=== PATIENT | male | born 1935 | race Caucasian/White ===

== ENCOUNTER 2024-07-04 13:31 | Emergency (ER) | payer MEDICARE, BC, SELFPAY ==
[2024-07-04] VITALS (8 sets, daily range): BP systolic 134–166; BP diastolic 67–107
[2024-07-04 15:15] LABS: % Basophils 0.1 % (0-2); % Eosinophils 0.5 % (0-6); % Immature Granulocytes 0.4 % (0-0.5); % Lymphocytes 7.7 % (20.5-51.1); % Monocytes 10.6 % (1.7-9.3); % Neutrophils 80.7 % (42.2-75.2); Absolute Eosinophils 0.1 10^3/uL (0-0.7); Absolute Lymphocytes 0.9 10^3/uL (1.2-3.4); Absolute Monocytes 1.2 10^3/uL (0.1-0.6); Absolute Neutrophils 8.9 10^3/uL (1.4-6.5); Hematocrit 39.1 % (39.0-52.0); Hemoglobin 13.2 g/dL (13.0-18.0); Mean Corp Hgb Conc. 33.8 g/dL (33.0-37.0); Mean Corpuscular Hgb 32.7 pg (27.0-31.0); Mean Corpuscular Volume 96.8 fL (80.0-94.0); Mean Platelet Volume 9.6 fL (7.4-10.4); Nucleated Red Blood Cells % 0 % (-); Platelet Count 304 10^3/uL (130-400); Red Blood Cell Count 4.04 10^6/uL (4.70-6.10); Red Cell Dist. Width 13.6 % (11.5-14.5); White Blood Cell Count 11.1 10^3/uL (4.8-10.8)
[2024-07-04 15:29] LABS: ALT (SGPT) 16 U/L (0-50); AST (SGOT) 22 U/L (17-59); Albumin 3.5 g/dl (3.5-5.0); Alkaline Phosphatase 90 U/L (38-126); Blood Urea Nitrogen 22 mg/dl (9-20); Calcium 8.7 mg/dl (8.4-10.2); Carbon Dioxide 32 mmol/L (22-30); Chloride 98 mmol/L (98-107); Glucose 154 mg/dl (70-99); Potassium 3.1 mmol/L (3.5-5.1); Sodium 140 mmol/L (135-145); Total Bilirubin 0.8 mg/dl (0.2-1.3); eGFR > 60.00
--- NOTE | 2024-07-04 16:31 | ED.GENMED ---
Addendum entered and electronically signed by Shital Martniez PA-C 07/07/24 07:06:
urine culture boyle sensitive e coli on cefdinir
Original Note:
History of Present Illness
General
Chief Complaint: Dehydration Symptoms
Time Seen by Provider: 07/04/24 14:18
History of Present Illness
History of Present Illness:
89-year-old male with history of stroke and orthostatic hypotension presents with son for evaluation of general fatigue and concerns for dehydration. Patient has had slurred speech and general malaise, son states this typically happens whenever he
is dehydrated. Patient states 'I feel lousy'. There have been no reported fevers, vomiting, diarrhea, or coughing
Review of Systems
Review of Systems
Allergies reviewed?: Yes
All Other Systems: ROS reviewed and negative except as documented in HPI and ROS
Phy Exam
Physical Exam
Physical Exam:
GEN: Frail and cachectic, fatigued but arousable, no distress
Eyes: PERRLA, EOMs intact, no scleral icterus
HENT: NCAT, oral mucosa dry
Lungs: CTAB, no wheezes, rales, rhonchi, normal chest wall excursion
Cardiac: RRR, no M/R/G, no peripheral edema. Radial pulses 2+ bilat
Abdomen: S, NT, ND, NABS, no masses or hepatosplenomegaly
Neuro: AO x 3, mildly slurred speech, moves all extremities freely
MSK: No gross deformity or ecchymosis. No edema. No digital clubbing
Skin: No rashes, petechiae. Normal color, no pallor or jaundice.
Psych: Calm, cooperative, proper hygiene
Course
Orders/Labs/Results
Orders:
Orders
07/04/24 13:39
Electrocardiogram (*1) Urgent
Reason for Study: Vertigo / Dizzy
EKG- Treatment ONCE
07/04/24 14:35
0.9% Sodium Chloride 500 ml [Nss] 500 ml IV BOLUS
07/04/24 15:05
Complete Blood Count/With Diff Urgent
Comprehensive Metabolic Panel Urgent
TSH Urgent
Comment: TSH ADDED ON BY FLOOR 3:30PM 07-04-24
07/04/24 15:32
Add On- LAB Urgent
Tests Added?: TSH
Potassium Chloride [KCl] 40 meq PO NOW STA
07/04/24 16:30
0.9% Sodium Chloride 500 ml [Nss] 500 ml IV BOLUS
07/04/24 17:34
Urinalysis Reflex To Culture Urgent
Date Specimen was Collected: 07/04/24
Time Specimen was Collected: 17:21
Urine Microscopic Reflex Cult Urgent
Urine Culture Urgent
BRIGITTE Source: U
Specimen Description:
Date Specimen was Collected: 07/04/24
Time Specimen was Collected: 17:21
07/04/24 18:07
CefTRIAXone [Rocephin] 1,000 mg IV NOW STA
Abnormal Lab Results
07/04/24 07/04/24
15:05 17:34
WBC 11.1 H 10^3/uL
(4.8-10.8)
RBC 4.04 L 10^6/uL
(4.70-6.10)
MCV 96.8 H fL
(80.0-94.0)
MCH 32.7 H pg
(27.0-31.0)
Absolute Neuts (auto) 8.9 H 10^3/uL
(1.4-6.5)
Absolute Lymphs (auto) 0.9 L 10^3/uL
(1.2-3.4)
Absolute Monos (auto) 1.2 H 10^3/uL
(0.1-0.6)
Neutrophils % 80.7 H %
(42.2-75.2)
Lymphocytes % 7.7 L %
(20.5-51.1)
Monocytes % 10.6 H %
(1.7-9.3)
Potassium 3.1 L mmol/L
(3.5-5.1)
Carbon Dioxide 32 H mmol/L
(22-30)
BUN 22 H mg/dl
(9-20)
Glucose 154 H mg/dl
(70-99)
Total Protein 6.0 L g/dl
(6.3-8.2)
Ur Occult Blood Reflex 2+ A
(Negative)
Urine Nitrite (Reflex) Positive A
(Negative)
Leukocyte Esterase Rfl 2+ A
(Negative)
Urine WBC (Reflex) 11-15 A /HPF
(0-5)
Urine Bacteria (Reflex) Many A
(Negative)
07/04/24 15:05
07/04/24 15:05
Vital Signs
Initial and Last Documented VS:
Initial Vital Signs
Temp Pulse Resp BP Pulse Ox
98.4 F 92 18 139/67 97
07/04/24 13:35 07/04/24 13:35 07/04/24 13:35 07/04/24 13:35 07/04/24 13:35
Last Documented Vital Signs
Temp Pulse Resp BP Pulse Ox
98.0 F 66 16 161/88 100
07/04/24 14:00 07/04/24 18:36 07/04/24 18:36 07/04/24 18:36 07/04/24 18:36
MDM/Problems Addressed
MDM/Problems Addressed:
Patient symptoms are most likely attributable to urinary tract infection. His labs are reasonable, he is mildly dehydrated and given 1 L normal saline as well as oral potassium repletion. No indication for hospitalization. Improving from a
cognition/fatigue standpoint after IV fluids. Will discharge on a 7-day course of cefdinir
*Critical Care Note
Total Time (30-74mins, 75-104mins- exclusive of procedures): Not Applicable
ED Attending Note
-
Portions of this chart may have been created with voice recognition software.� Occasional wrong word or��sound alike� substitutions may have occurred due to the inherent limitations of voice recognition software.
Discharge Plan
Departure
Patient Disposition: Home (Routine Discharge)
Date of Disposition: 07/04/24
Time of Disposition: 18:16
Patient with high blood pressure during this ER visit?: No
Discharge Problem:
Acute UTI, Lethargic
Instructions: Urinary Tract Infection, Adult ED
Prescriptions:
New
cefdinir 300 mg capsule
300 mg PO BID Qty: 14 0RF
No Action
doxycycline monohydrate 100 mg capsule
100 mg PO BID 7 Days Qty: 14 0RF
Referrals:
Damien Vazquez MD [Family Provider] -
Interventions
Interventions:
*Risk Screen - Suicide Last Done: 07/04/24 13:35
*General Assessment Last Done: 07/04/24 13:35
*Neglect/Abuse Screening Last Done: 07/04/24 13:35
ED- Fall Risk Assessment Last Done: 07/04/24 14:47
*Nursing Disposition Last Done: 07/04/24 18:36
ED- Cardiac Assessment Last Done: 07/04/24 14:47
ED- Neurological Assessment Last Done: 07/04/24 14:47
ED- Pulmonary Assessment Last Done: 07/04/24 14:47
Discharge Date and Time
Discharge Date/Time: 07/04/24 18:43
Print Language: S[place]
[2024-07-04 16:33] LABS: TSH 4.02 uIU/ml (0.47-4.68)
[2024-07-04] MEDS: KCL 40 MEQ PO (16:42)
[2024-07-04] MEDS: NSS 500 IV ×2 (16:51)
[2024-07-04 17:42] LABS: Urine Albumin Trace (Neg - Trace); Urine Bilirubin Negative (Negative); Urine Character Clear (Clear); Urine Color Yellow; Urine Glucose Negative (Negative); Urine Ketone Negative (Negative); Urine Leukocyte 2+ (Negative); Urine Nitrite Positive (Negative); Urine Occult Blood 2+ (Negative); Urine Urobilinogen Negative (Neg - 1+)
[2024-07-04 18:01] LABS: Urine Bacteria Many (Negative); Urine Red Blood Cell 0-2 /HPF (0-2)
[2024-07-04] MEDS: ROCEPHIN 1000 MG IV (18:21)
== END 2024-07-04 18:43 | disposition home or self-care (01) ==
LOC: EMR 13:31
PROVIDERS: Physician Assistant; EMERGENCY PHYSICIAN Student in an Organized Health Care Education/Training Program; FAMILY PHYSICIAN Family Medicine
DX: N39.0 Urinary tract infection, site not specified (principal); R53.83 Other fatigue; E86.0 Dehydration
CPT/HCPCS: 99284; 96374; 96361; 80053; 81003; 81015; 84443; 85025; 87086; 87088; 87186; 93005

== ENCOUNTER 2024-07-14 11:48 | Emergency (ER) | payer MEDICARE, BC, SELFPAY ==
[2024-07-14] VITALS (13 sets, daily range): BP systolic 97–151; BP diastolic 55–112; PULSE 74–77
--- NOTE | 2024-07-14 12:02 | ED.GENMED ---
History of Present Illness
<Ruth Ann Avina PA-C - Last Filed: 07/14/24 18:04>
General
Chief Complaint: Dehydration Symptoms
Source: patient
Exam Limitations: none
Time Seen by Provider: 07/14/24 12:02
Nursing documentation reviewed up to this point in time: agreed with
History of Present Illness
History of Present Illness:
89-year-old male with a past medical history of prior stroke, orthostatic hypotension, presents emergency department today with concerns of dehydration. Patient present in room with son. Patient has a long history of orthostatic hypotension and
son reports that he started to show signs that he was getting dehydrated. Son reports that when he gets dehydrated and hypotensive, he will start to slur his words, have some mild blurry vision, and appears fatigued. Son reports that the symptoms
resolve with IV fluids. Patient denies any fevers or chills, shortness of breath, chest pain, abdominal pain, lightheadedness, dizziness, headache. His home nurses went to take his blood pressure and noted that they could not take his blood
pressure because it was too low.
Review of Systems
<Ruth Ann Avina PA-C - Last Filed: 07/14/24 18:04>
Review of Systems
All Other Systems: ROS reviewed and negative except as documented in HPI and ROS
Phy Exam
<Ruth Ann Avina PA-C - Last Filed: 07/14/24 18:04>
Physical Exam
Physical Exam:
General: Patient is well appearing and in no acute distress; non-toxic
Skin: Warm and dry, no rashes or lesions. Dry mucous membranes noted.
Head: Normocephalic, atraumatic
Eyes: Sclera non-icteric. EOMs intact. PERRLA.
Mouth: No intraoral lesions
Cardiac: Regular rate and rhythm
Peripheral Vascular: No lower extremity swelling or edema
Pulm: Normal respiratory effort, no wheezes, rales, or rhonchi
Neuro: CN II-XII intact, no focal neurologic deficits.
Psychiatric: Appropriate mood and affect.
Course
<Ruth Ann Avina PA-C - Last Filed: 07/14/24 18:04>
Orders/Labs/Results
Orders:
Orders
07/14/24 12:08
Orthostatic VS- Treatment ONCE
0.9% Sodium Chloride 1000 ml [Nss] 1,000 ml IV BOLUS
07/14/24 12:33
Complete Blood Count/With Diff Urgent
Comprehensive Metabolic Panel Urgent
07/14/24 13:11
Electrocardiogram (*1) Urgent
Reason for Study: Fatigue / Weakness
EKG- Treatment ONCE
07/14/24 14:39
0.9% Sodium Chloride 1000 ml [Nss] 1,000 ml IV BOLUS
07/14/24 14:40
Diphenhydramine [Benadryl] 6.25 mg IV NOW STA
07/14/24 17:05
Urinalysis Reflex To Culture Urgent
Date Specimen was Collected: 07/14/24
Time Specimen was Collected: 17:03
07/14/24 17:38
Dexamethasone Sod Phosphate [Decadron] 10 mg IV NOW STA
Famotidine [Pepcid] 20 mg IV NOW STA
Abnormal Lab Results
07/14/24
12:33
RBC 3.95 L 10^6/uL
(4.70-6.10)
Hgb 12.9 L g/dL
(13.0-18.0)
Hct 37.9 L %
(39.0-52.0)
MCV 95.9 H fL
(80.0-94.0)
MCH 32.7 H pg
(27.0-31.0)
Absolute Monos (auto) 0.7 H 10^3/uL
(0.1-0.6)
Lymphocytes % 18.6 L %
(20.5-51.1)
BUN 33 H mg/dl
(9-20)
Glucose 127 H mg/dl
(70-99)
Total Protein 6.2 L g/dl
(6.3-8.2)
07/14/24 12:33
07/14/24 12:33
Vital Signs
Initial and Last Documented VS:
Initial Vital Signs
Pulse Resp BP Pulse Ox
84 18 97/55 95
07/14/24 11:55 07/14/24 11:55 07/14/24 11:55 07/14/24 11:55
Last Documented Vital Signs
Pulse Resp BP Pulse Ox
77 18 124/74 99
07/14/24 14:15 07/14/24 14:15 07/14/24 14:00 07/14/24 12:30
<Johnathan Kwan, DO - Last Filed: 07/14/24 13:28>
Orders/Labs/Results
Orders:
Orders
07/14/24 12:08
Orthostatic VS- Treatment ONCE
0.9% Sodium Chloride 1000 ml [Nss] 1,000 ml IV BOLUS
07/14/24 12:33
Complete Blood Count/With Diff Urgent
Comprehensive Metabolic Panel Urgent
07/14/24 13:11
Electrocardiogram (*1) Urgent
Reason for Study: Fatigue / Weakness
EKG- Treatment ONCE
07/14/24 14:39
0.9% Sodium Chloride 1000 ml [Nss] 1,000 ml IV BOLUS
07/14/24 14:40
Diphenhydramine [Benadryl] 6.25 mg IV NOW STA
07/14/24 17:05
Urinalysis Reflex To Culture Urgent
Date Specimen was Collected: 07/14/24
Time Specimen was Collected: 17:03
07/14/24 17:38
Dexamethasone Sod Phosphate [Decadron] 10 mg IV NOW STA
Famotidine [Pepcid] 20 mg IV NOW STA
Abnormal Lab Results
07/14/24
12:33
RBC 3.95 L 10^6/uL
(4.70-6.10)
Hgb 12.9 L g/dL
(13.0-18.0)
Hct 37.9 L %
(39.0-52.0)
MCV 95.9 H fL
(80.0-94.0)
MCH 32.7 H pg
(27.0-31.0)
Absolute Monos (auto) 0.7 H 10^3/uL
(0.1-0.6)
Lymphocytes % 18.6 L %
(20.5-51.1)
BUN 33 H mg/dl
(9-20)
Glucose 127 H mg/dl
(70-99)
Total Protein 6.2 L g/dl
(6.3-8.2)
07/14/24 12:33
07/14/24 12:33
Vital Signs
Initial and Last Documented VS:
Initial Vital Signs
Pulse Resp BP Pulse Ox
84 18 97/55 95
07/14/24 11:55 07/14/24 11:55 07/14/24 11:55 07/14/24 11:55
Last Documented Vital Signs
Pulse Resp BP Pulse Ox
77 18 124/74 99
07/14/24 14:15 07/14/24 14:15 07/14/24 14:00 07/14/24 12:30
Antonylt;Ruth Ann Avina PA-C - Last Filed: 07/14/24 18:04>
MDM/Problems Addressed
Differential Diagnosis Includes:
orthostatic hypotension, hyponatremia, viral syndrome, arrhythmia
MDM/Problems Addressed:
89-year-old male with a past medical history of prior stroke, orthostatic hypotension, presents emergency department today with concerns of dehydration. Son reports that patient has seen multiple specialist for episodes of low blood pressure and
they cannot get to the bottom of what is going on but they think he may have orthostatic hypotension. Son reports that he will be seen in ERs multiple times every few months to get IV fluids. He is recently seen here for IV fluid July 04 but
also was found to have a UTI and was put on antibiotics. Patient has no urinary complaints today and his urinalysis was negative. His CBC and CMP are unremarkable, no electrolyte derangements, does show signs of mild dehydration. While here in
the emergency department, he started to develop a pruritic, urticarial rash. This resolved with Benadryl within returned a few hours later. Patient was given Decadron and famotidine through the IV, etiology of this rash is unclear at this time but
physical exam is consistent with urticaria. Patient on multiple reassessments has no lip or tongue swelling, no shortness of breath. I suggested following up with primary regarding this issue, gave close return precautions. Patient's symptoms
today resolved with IV fluids, he no longer has speech slurring or complaints of weakness and fatigue patient stable for discharge.
Chronic conditions affecting care:
prior stroke, hypothyroidism, orthostatic hypotension
Antonylt;Ruth Ann Avina PA-C - Last Filed: 07/14/24 18:04>
*Pulse Oximetry
Patient hypoxic: no
*EKG
Interpreted by ED Provider?: Yes
EKG Intrepretation Date: 07/14/24
Interpretation: abnormal
Comparison EKG: changes noted (previous EKG shows atrial fibrillation)
Rate: normal
Rhythm: a-fib
Anthony: normal axis
QRS Pattern: normal QRS
Ischemia: no ischemia
*Critical Care Note
Total Time (30-74mins, 75-104mins- exclusive of procedures): Not Applicable
Data Reviewed
Review of Other/Old Records Reveals: Records (reviewed previous ER physician documentation from 07/04/24) and Discharge Summary
Source: patient
Prescriptions/Medications Considered But Not Given:
n/a
Further Testing Considered But Not Given:
n/a
<Ruth Ann Avina PA-C - Last Filed: 07/14/24 18:04>
Patient Management
Escalation/DeEscalation of care consider admission/obs:
Admit not indicated, patient stable for discharge
<Ruth Ann Avina PA-C - Last Filed: 07/14/24 18:04>
Update Note
Update Note:
2:45 pm-- Patient's speech returned to baseline with IV fluids. Patient states that he feels better. Will start another bag of IV fluids. Patient states that he feels itchy and has dry skin and will start scratching. Will give dose of benadryl.
Family reports that patient developed some scattered hives prior to this.
5:41 pm-- Prior to discharge, patient developed diffuse urticaria on his bilateral lower extremities and some scattered urticaria on his abdomen. Son lives with patient at home. Son and patient deny any recent illness, new laundry detergent, new
clothes, new face washes, new soaps, new medications, any recent antibiotics. Patient denies any shortness of breath, tongue or lip swelling.
ED Attending Note
<Ruth Ann Avina PA-C - Last Filed: 07/14/24 18:04>
-
Portions of this chart may have been created with voice recognition software.� Occasional wrong word or��sound alike� substitutions may have occurred due to the inherent limitations of voice recognition software.
<Johnathan Kwan DO - Last Filed: 07/14/24 13:28>
ED Attending Note
Patient seen and examined by attending physician: Yes
I performed the substantive portion of visit, reviewed & personally made and approve the management plan that is documented in note by myself or DEV.: Yes
ED Attending Note:
Seen with PA examined independently 89-year-old male orthostatic hypotension recurrent episodes where he gets weak dizzy with a mental status change here he looks dry, blood pressure improving with saline, son states this happens frequently, as she
saw GI doctor recently to talk about a feeding tube referred to see endocrinology and geriatrics prior to feeding tube
Discharge Plan
Departure
Patient Disposition: Home (Routine Discharge)
Date of Disposition: 07/14/24
Time of Disposition: 17:06
Patient with high blood pressure during this ER visit?: Yes
Condition: Good
Discharge Problem:
Acute dehydration
Instructions: Orthostatic hypotension, Dehydration, Adult (DC), BLOOD PRESSURE
Prescriptions:
No Action
doxycycline monohydrate 100 mg capsule
100 mg PO BID 7 Days Qty: 14 0RF
cefdinir 300 mg capsule
300 mg PO BID Qty: 14 0RF
Referrals:
Damien Vazquez MD [Family Provider] -
Activity Restrictions/Additional Instructions:
Please return to the emergency department should you experience difficulty speaking, one-sided weakness, confusion, syncopal episodes, chest pain, shortness of breath, or any other signs or symptoms concerning to you.
You will receive a call if the results of your urinalysis are abnormal.
Please follow-up with geriatrics and cardiology as scheduled.
Interventions
Interventions:
*Risk Screen - Suicide Last Done: 07/14/24 11:55
*General Assessment Last Done: 07/14/24 11:55
ED- Fall Risk Assessment Last Done: 07/14/24 14:00
*ED COVID-19 Vaccine History Last Done: 07/14/24 11:55
ED- Cardiac Assessment Last Done: 07/14/24 14:00
ED- Neurological Assessment Last Done: 07/14/24 14:00
ED- Pulmonary Assessment Last Done: 07/14/24 14:00
Discharge Date and Time
Print Language: MONGOLIAN
[2024-07-14] MEDS: NSS 1000 IV ×2 (12:42→15:31)
[2024-07-14 12:51] LABS: % Basophils 0.3 % (0-2); % Eosinophils 2.6 % (0-6); % Immature Granulocytes 0.3 % (0-0.5); % Lymphocytes 18.6 % (20.5-51.1); % Monocytes 8.9 % (1.7-9.3); % Neutrophils 69.3 % (42.2-75.2); Absolute Eosinophils 0.2 10^3/uL (0-0.7); Absolute Lymphocytes 1.4 10^3/uL (1.2-3.4); Absolute Monocytes 0.7 10^3/uL (0.1-0.6); Absolute Neutrophils 5.4 10^3/uL (1.4-6.5); Hematocrit 37.9 % (39.0-52.0); Hemoglobin 12.9 g/dL (13.0-18.0); Mean Corpuscular Hgb 32.7 pg (27.0-31.0); Mean Corpuscular Volume 95.9 fL (80.0-94.0); Mean Platelet Volume 9.9 fL (7.4-10.4); Nucleated Red Blood Cells % 0 % (-); Platelet Count 328 10^3/uL (130-400); Red Blood Cell Count 3.95 10^6/uL (4.70-6.10); Red Cell Dist. Width 13.4 % (11.5-14.5); White Blood Cell Count 7.8 10^3/uL (4.8-10.8)
[2024-07-14 13:07] LABS: ALT (SGPT) 20 U/L (0-50); AST (SGOT) 33 U/L (17-59); Alkaline Phosphatase 82 U/L (38-126); Blood Urea Nitrogen 33 mg/dl (9-20); Calcium 9.2 mg/dl (8.4-10.2); Carbon Dioxide 29 mmol/L (22-30); Chloride 100 mmol/L (98-107); Glucose 127 mg/dl (70-99); Potassium 4.2 mmol/L (3.5-5.1); Sodium 140 mmol/L (135-145); Total Bilirubin 0.7 mg/dl (0.2-1.3); eGFR > 60.00
[2024-07-14 13:18] LABS: Albumin 3.7 g/dl (3.5-5.0); Total Protein 6.2 g/dl (6.3-8.2)
[2024-07-14] MEDS: BENADRYL 6.25 MG IV (15:48)
[2024-07-14 17:12] LABS: Urine Albumin Trace (Neg - Trace); Urine Bilirubin Negative (Negative); Urine Character Clear (Clear); Urine Color Amber; Urine Glucose Negative (Negative); Urine Ketone Negative (Negative); Urine Leukocyte Negative (Negative); Urine Nitrite Negative (Negative); Urine Occult Blood Negative (Negative); Urine Specific Gravity 1.025 (<1.030); Urine Urobilinogen Negative (Neg - 1+)
[2024-07-14] MEDS: PEPCID 20 MG IV (17:42)
[2024-07-14] MEDS: DECADRON 10 MG IV (17:42)
== END 2024-07-14 18:16 | disposition home or self-care (01) ==
LOC: EMR 11:48
PROVIDERS: Physician Assistant; EMERGENCY PHYSICIAN Emergency Medicine; FAMILY PHYSICIAN Family Medicine
DX: E86.0 Dehydration (principal); R47.81 Slurred speech; L50.9 Urticaria, unspecified; L85.3 Xerosis cutis; L29.9 Pruritus, unspecified; N39.0 Urinary tract infection, site not specified; R03.0 Elevated blood-pressure reading, without diagnosis of hypertension; I48.91 Unspecified atrial fibrillation; E03.9 Hypothyroidism, unspecified; Z86.73 Personal history of transient ischemic attack (TIA), and cerebral infarction without residual deficits; Z79.82 Long term (current) use of aspirin; Z79.02 Long term (current) use of antithrombotics/antiplatelets; Z88.1 Allergy status to other antibiotic agents
CPT/HCPCS: 99284; 96374; 96375 ×2; 96361 ×2; 80053; 81003; 85025; 93005

== ENCOUNTER 2024-07-16 17:47 | Inpatient (IN) | payer MEDICARE, BC, SELFPAY ==
[2024-07-16] VITALS (8 sets, daily range): BP systolic 95–150; BP diastolic 66–104; BMI 15.2; BMI 14.9
--- NOTE | 2024-07-16 10:42 | ED.GENMED ---
ED Provider Triage
<Danie Domingo PA-C - Last Filed: 07/16/24 10:56>
-
Patient seen by provider in Triage?: Seen in Triage
89-year-old male on aspirin and Plavix fell last evening. Family states he was confused last night trying to put his pants on after she was run. Since the fall he is been having right hip and leg pain. They also notes sometime yesterday midday he
had difficulty speaking. The speaking issue persists. Patient was here several days ago for dehydration.
Ordered labs and EKG as well as CT of head and x-ray of right hip. Stroke alert not called secondary to unknown onset of symptoms.
EKG shows A-fib with rapid ventricular response
History of Present Illness
<Danie Domingo PA-C - Last Filed: 07/16/24 10:56>
General
Chief Complaint: Fall
Time Seen by Provider: 07/16/24 11:51
<FABRICE Domingo - Last Filed: 07/17/24 20:54>
General
Source: family
Exam Limitations: none
Nursing documentation reviewed up to this point in time: agreed with
History of Present Illness
History of Present Illness:
Patient is an 89-year-old male with history of CVA presents to the ER for evaluation of hip pain. Patient here with family. Son reports that patient lives by himself but son is there a majority of the time. Son reports patient described a
mechanical fall last night while trying to put on his pants. Since then he is complaining of right hip pain. Son reports his speech seems a little garbled and he is more confused than normal was also seeing things/hallucinating last night and
this often occurs when he is dehydrated. In fact he reports they were just here 2 days ago for dehydration. AT that time UA did not appear infected.
Patient presents awake alert he is pleasantly confused but answering questions.
He has no focal deficits. CAT scan head done and negative. Patient has good range of motion of his right hip though he does complain of pain will order CT. With regards to change in mental status likely combination of dehydration and UTI will
admit. Patient will also need workup for A-fib again he is on Plavix only for history of stroke.
Patient is afebrile with a normal white as documented patient's BUN was elevated he was given fluids here in the ER
Review of Systems
<FABRICE Domingo - Last Filed: 07/17/24 20:54>
Review of Systems
Allergies reviewed?: Yes
Other source history: family
All Other Systems: ROS reviewed and negative except as documented in HPI and ROS
Constitutional: Reports no symptoms
Respiratory: Reports no symptoms
Cardiac: Reports no symptoms
ABD/GI: Reports no symptoms
: Reports no symptoms
Musculoskeletal: Reports other (right hip pain )
Skin: Reports no symptoms
Neurological: Reports other (increased confusion )
Psychiatric: Reports no symptoms
Phy Exam
<FABRICE Domingo - Last Filed: 07/17/24 20:54>
General Physical Exam
General Presentation: no apparent distress
General age: appears stated age
General Skin: warm and dry
General Habitus: elderly
General Mental: confused
General Hydration: dry mucous membranes
Cardiovascular Exam
Cardiovascular Exam: irregularly irregular
Pulmonary Exam
Pulmonary Exam: lungs clear and no respiratory distress
Neurological Exam
Neurological Exam: alert and other (oriented to name/hosital )
Musculoskeletal Exam
Musculoskeletal Exam: other (pain with ROM to right hip no deformity )
Skin Exam
Skin Exam: normal color and warm/dry
Psychiatric Exam
Psychiatric Exam: normal mood/affect
Scores
<FABRICE Domingo - Last Filed: 07/17/24 20:54>
[id number] Score for Afib Stroke Risk
Age in Years (65=0, 65-74=1, >/=75=2): > or = 75
Sex (Female=+1): Male
Congestive Heart Failure History (Yes=+1): No
Hypertension History (Yes=+1): No
Stroke/TIA/Thromboembolism History (Yes=+2): Yes
Vascular Disease History (Yes=+1): No
Diabetes Mellitus (Yes=+1): No
Score: 4
Anticoagulation Recommendations: Recommend anticoagulation (as validated in nonvalvular fib)
Course
<Danie Domingo PA-C - Last Filed: 07/16/24 10:56>
Orders/Labs/Results
Orders:
Orders
07/16/24 10:40
CT Head W/o Iv Contrast Urgent
Comment:
Reason For Exam: fall, difficulty speaking
EKG- Treatment ONCE
CR Femur - Right Min 2 Vw Urgent
Comment:
Reason For Exam: fall
CR Hip - RT w/wo Pel 2-3 Vw* Urgent
Comment:
Reason For Exam: fall,
Include a pelvis x-ray?: Yes
07/16/24 10:49
Electrocardiogram (*1) Urgent
Reason for Study: Fatigue / Weakness
EKG- Treatment ONCE
07/16/24 12:27
Complete Blood Count/With Diff Urgent
Comprehensive Metabolic Panel Urgent
Urinalysis Reflex To Culture Urgent
Date Specimen was Collected: 07/16/24
Time Specimen was Collected: 10:46
Urine Microscopic Reflex Cult Urgent
Urine Culture Urgent
BRIGITTE Source: U
Specimen Description:
Date Specimen was Collected: 07/16/24
Time Specimen was Collected: 10:46
07/16/24 13:07
0.9% Sodium Chloride 1000 ml [Nss] 1,000 ml IV BOLUS
10/14/24 14:05
CefTRIAXone [Rocephin] 1,000 mg IV NOW STA
07/16/24 14:17
Electrocardiogram (*1) Urgent
Reason for Study: Bradycardia / Tachycardia
EKG- Treatment ONCE
07/16/24 14:37
CT Lower Ext W/o Iv Cont Rt Urgent
Comment:
Reason For Exam: pain
07/16/24 14:45
Heparin 2,900 units IV NOW STA
Heparin 44961 Units/250 ml 25,000 units in 250 ml IV PER PROTOCOL
Weight to be used for heparin protocol in kilograms (kg):: 48.1
Protocol:: Cardiac Tx/Acute Coronary
PTT Goal Range to be used:: PTT 73 to 111 seconds
Order type:: Initial
INITIAL Infusion Dose (UNITS/KG/hr) & then follow protocol:: 12 units/kg/hr
Infusion Dose in UNITS/hr & then follow protocol (UNITS/hr):: 600
INFUSION RATE in mL/hr & then follow protocol (mL/hr):: 6
PTT less than or equal to 64 seconds:: Increase rate by 200 units/hr (+ 2 mL/hr)
PTT 64.1 to 72.9 seconds:: Increase rate by 100 units/hr (+ 1 mL/hr)
PTT 73 to 111 seconds:: Target Range. No change in rate.
PTT 111.1 to 130.9 seconds:: Decrease rate by 100 units/hr (- 1 mL/hr)
PTT 131 to 199.9 seconds:: HOLD for 1 hr. Then decrease rate by 200 units/hr (- 2 mL/hr)
PTT greater than or equal to 200 seconds:: HOLD for 2 hrs & Notify Provider. Then decrease by 200 units/hr (-
2 mL/hr)
Lab follow-up:: Each change, PTT q6h until 2 consecutive are therapeutic. Then PTT
daily.
Nursing to Place Non Medication Order As Directed
Physician Order: PTT 6 hours after initial start of Heparin infusion
Above order entered?: Yes
07/16/24 14:51
PTT Urgent
Comment: Obtain baseline before beginning heparin infusion if not already collected
07/16/24 15:08
Morphine Sulfate 2 mg .ROUTE .STK-MED ONE
07/16/24 15:09
Morphine Sulfate 2 mg IV NOW STA
07/16/24 16:48
Admit/Transfer Patient As Directed
Co-Sign Provider:
Level of Care: Inpatient admission
Assign to:: Telemetry
Physician / Group: Amish Wang
Diagnosis: Hip pain, AFib
Reason for Telemetry: Arrhythmia
Date to Stop Telemetry: 07/19/24
Time to Stop Telemetry: 11:00
Reason for Hospitalization: Fall at home, rule out fracture. New onset AF with RVR
Expected length of stay greater than two midnights?: Yes
ELOS- Estimated Length of Stay in days: 3
I certify the patient meets the requirements for IP care: Yes
PRN Pain Medication Management As Directed
May give lesser potent ordered pain med per pt: Yes
preference::
Protocol:: Medication orders for pain may be administered in a
manner that supports deferring to patient preference
when the pt is:
- Requesting an ordered lesser potent pain medication.
Least to most potent pain medications are defined
as: acetaminophen < NSAID < tramadol < opioids
(morphine, oxycodone, hydromorphone).
- Requesting a lesser dose of the same medication IF
ORDERED.
- Requesting a less intrusive route of administration
if both routes are prescribed by the provider (PO <
IV).
07/16/24 16:50
Code Status As Directed
Resuscitation Status: Full Code
07/16/24 16:53
Add On- LAB Stat
Comments:: ED urine sample
Tests Added?: Urine Culture
07/16/24 17:14
CARDIOLOGY CONSULT Routine
Consulting Provider: Abundio Rolon
Was physician already notified: Yes
Reason for consult: AF, [id number]
07/16/24 17:15
Diltiazem 125 mg/125 ml Nss [Cardizem] 125 mg in 125 ml IV PER PROTOCOL
Continuous dose without titration in mg/hr:: 2.5
Additional Titration Instructions:: Do not titrate. Rate change by provider order only.
07/16/24 17:18
Accucheck [Bedside Glucose Monitoring] As Directed
Frequency: AC&HS
07/16/24 17:20
Morphine Sulfate 1 mg IV Q4HPRN PRN
Morphine Sulfate 2 mg IV Q6HPRN PRN
07/16/24 17:45
Acetaminophen 1000MG/100Ml [Ofirmev] 1,000 mg in 100 ml IV ONCE
07/16/24 18:00
Lactated Ringers [Lr] 1,000 ml IV 60 mls/hr
07/16/24 19:09
Atorvastatin [Lipitor] 40 mg PO QPM
Bisacodyl [Dulcolax] 10 mg RECTAL [id number] PRN
Docusate W/Senna [Senokot-S] 1 tablet PO BIDPRN PRN
Fludrocortisone Acetate [Florinef] 0.1 mg PO MEALS
Polyethylene Glycol Powder [Miralax] 17 grams PO DAILYPRN PRN
07/16/24 19:09
Activity As Directed
Activity Level: Out of Bed-Early Mobility
Intake/ Output As Directed
Frequency: q12h
Pneumatic Compression Sleeves As Directed
Type: Knee high
Vital Signs As Directed
Frequency: Per unit guidelines
Weight As Directed
Frequency: Daily
DX Deep Vein Thrombosis Video Routine
07/16/24 19:15
Midodrine [ProAmatine] 10 mg PO MEALS
07/16/24 20:00
Magnesium Oxide 250 mg PO BID
Sodium Chloride 1 gram PO BID
07/16/24 21:43
PTT Urgent
07/16/24 22:00
Famotidine [Pepcid] 20 mg PO HS
07/17/24 00:00
Acetaminophen 1000MG/100Ml [Ofirmev] 1,000 mg in 100 ml IV Q6H
Acetaminophen IV Indication:: No MN & No Enteral Access
07/17/24 04:58
Basic Metabolic Panel IN AM
Complete Blood Count/With Diff IN AM
Magnesium IN AM
07/17/24 07:30
Insulin Aspart Corrective Low [Novolog Flexpen-Low Resistance] See Protocol SC AC
07/17/24 08:00
Allopurinol [Zyloprim] 100 mg PO DAILY
Aspirin Chewable [Low Strength Aspirin] 81 mg PO DAILY
Clopidogrel Bisulfate [Plavix] 75 mg PO DAILY
07/17/24 14:00
CefTRIAXone [Rocephin] 1,000 mg IV Q24H
07/19/24 11:00
DC Protocol for Telemetry ONCE
Abnormal Lab Results
07/16/24
12:27
RBC 3.89 L 10^6/uL
(4.70-6.10)
Hgb 12.8 L g/dL
(13.0-18.0)
Hct 37.4 L %
(39.0-52.0)
MCV 96.1 H fL
(80.0-94.0)
MCH 32.9 H pg
(27.0-31.0)
Abs Immat Gran (auto) 0.1 H 10^3/uL
(0-0.05)
Absolute Neuts (auto) 8.4 H 10^3/uL
(1.4-6.5)
Absolute Lymphs (auto) 1.0 L 10^3/uL
(1.2-3.4)
Absolute Monos (auto) 0.9 H 10^3/uL
(0.1-0.6)
Neutrophils % 80.9 H %
(42.2-75.2)
Lymphocytes % 9.8 L %
(20.5-51.1)
BUN 28 H mg/dl
(9-20)
Glucose 142 H mg/dl
(70-99)
Ur Occult Blood Reflex Trace A
(Negative)
Leukocyte Esterase Rfl 2+ A
(Negative)
Urine WBC (Reflex) 30-40 A /HPF
(0-5)
Urine Bacteria (Reflex) Many A
(Negative)
07/16/24 12:27
07/16/24 12:27
Vital Signs
Initial and Last Documented VS:
Initial Vital Signs
Temp Pulse Resp BP Pulse Ox
97.6 F 89 18 95/76 96
07/16/24 10:42 07/16/24 10:42 07/16/24 10:42 07/16/24 10:42 07/16/24 10:42
Last Documented Vital Signs
Temp Pulse Resp BP Pulse Ox
97.3 F 72 14 114/64 92
07/17/24 19:30 07/17/24 19:30 07/17/24 19:30 07/17/24 19:30 07/17/24 19:30
<FABRICE Domingo - Last Filed: 07/17/24 20:54>
Orders/Labs/Results
Orders:
Orders
07/16/24 10:40
CT Head W/o Iv Contrast Urgent
Comment:
Reason For Exam: fall, difficulty speaking
EKG- Treatment ONCE
CR Femur - Right Min 2 Vw Urgent
Comment:
Reason For Exam: fall
CR Hip - RT w/wo Pel 2-3 Vw* Urgent
Comment:
Reason For Exam: fall,
Include a pelvis x-ray?: Yes
07/16/24 10:49
Electrocardiogram (*1) Urgent
Reason for Study: Fatigue / Weakness
EKG- Treatment ONCE
07/16/24 12:27
Complete Blood Count/With Diff Urgent
Comprehensive Metabolic Panel Urgent
Urinalysis Reflex To Culture Urgent
Date Specimen was Collected: 07/16/24
Time Specimen was Collected: 10:46
Urine Microscopic Reflex Cult Urgent
Urine Culture Urgent
BRIGITTE Source: U
Specimen Description:
Date Specimen was Collected: 07/16/24
Time Specimen was Collected: 10:46
07/16/24 13:07
0.9% Sodium Chloride 1000 ml [Nss] 1,000 ml IV BOLUS
07/16/24 14:05
CefTRIAXone [Rocephin] 1,000 mg IV NOW STA
07/16/24 14:17
Electrocardiogram (*1) Urgent
Reason for Study: Bradycardia / Tachycardia
EKG- Treatment ONCE
07/16/24 14:37
CT Lower Ext W/o Iv Cont Rt Urgent
Comment:
Reason For Exam: pain
07/16/24 14:45
Heparin 2,900 units IV NOW STA
Heparin 59034 Units/250 ml 25,000 units in 250 ml IV PER PROTOCOL
Weight to be used for heparin protocol in kilograms (kg):: 48.1
Protocol:: Cardiac Tx/Acute Coronary
PTT Goal Range to be used:: PTT 73 to 111 seconds
Order type:: Initial
INITIAL Infusion Dose (UNITS/KG/hr) & then follow protocol:: 12 units/kg/hr
Infusion Dose in UNITS/hr & then follow protocol (UNITS/hr):: 600
INFUSION RATE in mL/hr & then follow protocol (mL/hr):: 6
PTT less than or equal to 64 seconds:: Increase rate by 200 units/hr (+ 2 mL/hr)
PTT 64.1 to 72.9 seconds:: Increase rate by 100 units/hr (+ 1 mL/hr)
PTT 73 to 111 seconds:: Target Range. No change in rate.
PTT 111.1 to 130.9 seconds:: Decrease rate by 100 units/hr (- 1 mL/hr)
PTT 131 to 199.9 seconds:: HOLD for 1 hr. Then decrease rate by 200 units/hr (- 2 mL/hr)
PTT greater than or equal to 200 seconds:: HOLD for 2 hrs & Notify Provider. Then decrease by 200 units/hr (-
2 mL/hr)
Lab follow-up:: Each change, PTT q6h until 2 consecutive are therapeutic. Then PTT
daily.
Nursing to Place Non Medication Order As Directed
Physician Order: PTT 6 hours after initial start of Heparin infusion
Above order entered?: Yes
07/16/24 14:51
PTT Urgent
Comment: Obtain baseline before beginning heparin infusion if not already collected
07/16/24 15:08
Morphine Sulfate 2 mg .ROUTE .STK-MED ONE
07/16/24 15:09
Morphine Sulfate 2 mg IV NOW STA
07/16/24 16:48
Admit/Transfer Patient As Directed
Co-Sign Provider:
Level of Care: Inpatient admission
Assign to:: Telemetry
Physician / Group: Amish Wang
Diagnosis: Hip pain, AFib
Reason for Telemetry: Arrhythmia
Date to Stop Telemetry: 07/19/24
Time to Stop Telemetry: 11:00
Reason for Hospitalization: Fall at home, rule out fracture. New onset AF with RVR
Expected length of stay greater than two midnights?: Yes
ELOS- Estimated Length of Stay in days: 3
I certify the patient meets the requirements for IP care: Yes
PRN Pain Medication Management As Directed
May give lesser potent ordered pain med per pt: Yes
preference::
Protocol:: Medication orders for pain may be administered in a
manner that supports deferring to patient preference
when the pt is:
- Requesting an ordered lesser potent pain medication.
Least to most potent pain medications are defined
as: acetaminophen < NSAID < tramadol < opioids
(morphine, oxycodone, hydromorphone).
- Requesting a lesser dose of the same medication IF
ORDERED.
- Requesting a less intrusive route of administration
if both routes are prescribed by the provider (PO <
IV).
07/16/24 16:50
Code Status As Directed
Resuscitation Status: Full Code
07/16/24 16:53
Add On- LAB Stat
Comments:: ED urine sample
Tests Added?: Urine Culture
07/16/24 17:14
CARDIOLOGY CONSULT Routine
Consulting Provider: Abundio Rolon
Was physician already notified: Yes
Reason for consult: AF, [id number] 4
07/16/24 17:15
Diltiazem 125 mg/125 ml Nss [Cardizem] 125 mg in 125 ml IV PER PROTOCOL
Continuous dose without titration in mg/hr:: 2.5
Additional Titration Instructions:: Do not titrate. Rate change by provider order only.
07/16/24 17:18
Accucheck [Bedside Glucose Monitoring] As Directed
Frequency: AC&HS
07/16/24 17:20
Morphine Sulfate 1 mg IV Q4HPRN PRN
Morphine Sulfate 2 mg IV Q6HPRN PRN
07/16/24 17:45
Acetaminophen 1000MG/100Ml [Ofirmev] 1,000 mg in 100 ml IV ONCE
07/16/24 18:00
Lactated Ringers [Lr] 1,000 ml IV 60 mls/hr
07/16/24 19:09
Atorvastatin [Lipitor] 40 mg PO QPM
Bisacodyl [Dulcolax] 10 mg RECTAL [id number] PRN
Docusate W/Senna [Senokot-S] 1 tablet PO BIDPRN PRN
Fludrocortisone Acetate [Florinef] 0.1 mg PO MEALS
Polyethylene Glycol Powder [Miralax] 17 grams PO DAILYPRN PRN
07/16/24 19:09
Activity As Directed
Activity Level: Out of Bed-Early Mobility
Intake/ Output As Directed
Frequency: q12h
Pneumatic Compression Sleeves As Directed
Type: Knee high
Vital Signs As Directed
Frequency: Per unit guidelines
Weight As Directed
Frequency: Daily
DX Deep Vein Thrombosis Video Routine
07/16/24 19:15
Midodrine [ProAmatine] 10 mg PO MEALS
07/16/24 20:00
Magnesium Oxide 250 mg PO BID
Sodium Chloride 1 gram PO BID
07/16/24 21:43
PTT Urgent
07/16/24 22:00
Famotidine [Pepcid] 20 mg PO HS
07/17/24 00:00
Acetaminophen 1000MG/100Ml [Ofirmev] 1,000 mg in 100 ml IV Q6H
Acetaminophen IV Indication:: No MN & No Enteral Access
07/17/24 04:58
Basic Metabolic Panel IN AM
Complete Blood Count/With Diff IN AM
Magnesium IN AM
07/17/24 07:30
Insulin Aspart Corrective Low [Novolog Flexpen-Low Resistance] See Protocol SC AC
07/17/24 08:00
Allopurinol [Zyloprim] 100 mg PO DAILY
Aspirin Chewable [Low Strength Aspirin] 81 mg PO DAILY
Clopidogrel Bisulfate [Plavix] 75 mg PO DAILY
07/17/24 14:00
CefTRIAXone [Rocephin] 1,000 mg IV Q24H
07/19/24 11:00
DC Protocol for Telemetry ONCE
Abnormal Lab Results
07/16/24
12:27
RBC 3.89 L 10^6/uL
(4.70-6.10)
Hgb 12.8 L g/dL
(13.0-18.0)
Hct 37.4 L %
(39.0-52.0)
MCV 96.1 H fL
(80.0-94.0)
MCH 32.9 H pg
(27.0-31.0)
Abs Immat Gran (auto) 0.1 H 10^3/uL
(0-0.05)
Absolute Neuts (auto) 8.4 H 10^3/uL
(1.4-6.5)
Absolute Lymphs (auto) 1.0 L 10^3/uL
(1.2-3.4)
Absolute Monos (auto) 0.9 H 10^3/uL
(0.1-0.6)
Neutrophils % 80.9 H %
(42.2-75.2)
Lymphocytes % 9.8 L %
(20.5-51.1)
BUN 28 H mg/dl
(9-20)
Glucose 142 H mg/dl
(70-99)
Ur Occult Blood Reflex Trace A
(Negative)
Leukocyte Esterase Rfl 2+ A
(Negative)
Urine WBC (Reflex) 30-40 A /HPF
(0-5)
Urine Bacteria (Reflex) Many A
(Negative)
07/16/24 12:27
07/16/24 12:27
Vital Signs
Initial and Last Documented VS:
Initial Vital Signs
Temp Pulse Resp BP Pulse Ox
97.6 F 89 18 95/76 96
07/16/24 10:42 07/16/24 10:42 07/16/24 10:42 07/16/24 10:42 07/16/24 10:42
Last Documented Vital Signs
Temp Pulse Resp BP Pulse Ox
97.3 F 72 14 114/64 92
07/17/24 19:30 07/17/24 19:30 07/17/24 19:30 07/17/24 19:30 07/17/24 19:30
<FABRICE Domingo - Last Filed: 07/17/24 20:54>
MDM/Problems Addressed
Differential Diagnosis Includes:
Not limited to hip fracture hip strain dehydration infection UTI less likely stroke
MDM/Problems Addressed:
Patient is an 89-year-old male is brought by family. Patient had a mechanical fall yesterday and was complaining of hip pain since however son reports patient is also with garbled speech and gets this way when he gets dehydrated. Prior notes/ED
visit patient was also brought here several times for garbled speech related to possible confusion or UTI concerns. Patient presents awake alert he has no focal deficits he is able to answer questions to tell me his name and follow commands. He is
dry on exam and is dehydrated. He has a UTI(though just here 2 days ago and it did not appear that he had a UTI on labs and urine).
Patient presents afebrile with a normal white count stable hemoglobin, BUN is 28 creatinine normal, urine shows 30�40 white blood cells. Will treat with IV Rocephin incidentally patient was found to be in A-fib.
Patient as documented in visits has no past medical history of A-fib. He is on Plavix for history of CVA however has been off of Plavix for the past several days to a procedure that was supposed to occur today at [facility] for his facial nerve. d/c /w
ED physician will order heparin. ct hip pending hospitalist made aware
<FABRICE Domingo - Last Filed: 07/17/24 20:54>
*Radiology
Radiology exam reviewed: radiology read reviewed
*Pulse Oximetry
Patient hypoxic: no
*EKG
Interpreted by ED Provider?: Yes
Interpretation: abnormal
Comparison EKG: changes noted
Heart Rate: 95
Rate: normal
Rhythm: a-fib
*Critical Care Note
Total Time (30-74mins, 75-104mins- exclusive of procedures): Not Applicable
ED Attending Note
<Danie Domingo PA-C - Last Filed: 07/16/24 10:56>
-
Portions of this chart may have been created with voice recognition software.� Occasional wrong word or��sound alike� substitutions may have occurred due to the inherent limitations of voice recognition software.
Discharge Plan
Departure
Patient Disposition: Admit
Date of Disposition: 07/16/24
Time of Disposition: 14:58
Admit to: Telemetry
Admit to doctor: hospitalist
Presentation/result/management discussed w/ accepting MD/DO: Hospitalist
Patient with high blood pressure during this ER visit?: Yes
Condition: Fair
Covid-19: Not Applicable
Discharge Problem:
Acute UTI, Acute dehydration, Atrial fibrillation, new onset, Acute alteration in mental status
Interventions
Interventions:
*Risk Screen - Suicide Last Done: 07/17/24 01:30
*General Assessment Last Done: 07/16/24 10:42
*Neglect/Abuse Screening Last Done: 07/16/24 10:42
*ED COVID-19 Vaccine History Last Done: 07/17/24 01:30
*Nursing Disposition Last Done: 07/16/24 19:10
ED-Musculoskeletal Assessment Last Done: 07/16/24 13:22
ED- Neurological Assessment Last Done: 07/16/24 13:22
ED-Skin Assessment Last Done: 07/16/24 13:22
Discharge Date and Time
Discharge Date/Time: 07/16/24 19:11
[2024-07-16 12:40] LABS: % Basophils 0.1 % (0-2); % Eosinophils 0.2 % (0-6); % Immature Granulocytes 0.5 % (0-0.5); % Lymphocytes 9.8 % (20.5-51.1); % Monocytes 8.5 % (1.7-9.3); % Neutrophils 80.9 % (42.2-75.2); Absolute Immature Granulocytes 0.1 10^3/uL (0-0.05); Absolute Monocytes 0.9 10^3/uL (0.1-0.6); Absolute Neutrophils 8.4 10^3/uL (1.4-6.5); Hematocrit 37.4 % (39.0-52.0); Hemoglobin 12.8 g/dL (13.0-18.0); Mean Corp Hgb Conc. 34.2 g/dL (33.0-37.0); Mean Corpuscular Hgb 32.9 pg (27.0-31.0); Mean Corpuscular Volume 96.1 fL (80.0-94.0); Mean Platelet Volume 9.9 fL (7.4-10.4); Nucleated Red Blood Cells % 0 % (-); Platelet Count 262 10^3/uL (130-400); Red Blood Cell Count 3.89 10^6/uL (4.70-6.10); Red Cell Dist. Width 13.7 % (11.5-14.5); White Blood Cell Count 10.3 10^3/uL (4.8-10.8)
[2024-07-16 12:41] LABS: Urine Albumin Trace (Neg - Trace); Urine Bilirubin Negative (Negative); Urine Character Clear (Clear); Urine Color Yellow; Urine Glucose Negative (Negative); Urine Ketone Negative (Negative); Urine Leukocyte 2+ (Negative); Urine Nitrite Negative (Negative); Urine Occult Blood Trace (Negative); Urine Specific Gravity 1.015 (<1.030); Urine Urobilinogen Negative (Neg - 1+)
[2024-07-16 12:53] LABS: ALT (SGPT) 24 U/L (0-50); AST (SGOT) 28 U/L (17-59); Albumin 3.7 g/dl (3.5-5.0); Alkaline Phosphatase 120 U/L (38-126); Blood Urea Nitrogen 28 mg/dl (9-20); Calcium 9.2 mg/dl (8.4-10.2); Carbon Dioxide 26 mmol/L (22-30); Chloride 106 mmol/L (98-107); Estimated Creatinine Clearance 43 ml/min; Glucose 142 mg/dl (70-99); Potassium 3.5 mmol/L (3.5-5.1); Sodium 143 mmol/L (135-145); Total Bilirubin 0.7 mg/dl (0.2-1.3); Total Protein 6.3 g/dl (6.3-8.2); eGFR > 60.00
[2024-07-16] MEDS: NSS 1000 IV (13:19)
[2024-07-16 13:58] LABS: Urine Mucus Many
[2024-07-16 14:00] LABS: Urine Amorphous Seen; Urine Red Blood Cell 0-2 /HPF (0-2); Urine Squamous Cell 0-2 /LPF (Few)
[2024-07-16 14:01] LABS: Urine White Cell 30-40 /HPF (0-5)
[2024-07-16 14:02] LABS: Urine Bacteria Many (Negative)
[2024-07-16] MEDS: ROCEPHIN 1000 MG IV (14:09)
[2024-07-16] MEDS: MORPHINE SULFATE 2 MG IV (15:10)
[2024-07-16] MEDS: HEPARIN 25000 UNITS/250 ML IV (15:15)
[2024-07-16] MEDS: HEPARIN 2900 UNITS IV (15:15)
[2024-07-16 16:25] LABS: APTT 33.5 Sec (23.4-35.0)
--- NOTE | 2024-07-16 16:35 | HPS.HSE ---
Family Physician
-
Family Physician: Damien Vazquez
Chief Complaint
-
Fall at home, new onset AF with RVR while in ED
History of Present Illness
89-year-old male with ASCVD (left subclavian artery occlusion, right vertebral artery occlusion; C/B left subclavian steal syndrome), T2DM, HLD, stage IIIa CKD, hypothyroidism, gout, trigeminal neuralgia, former smoker that presented to the ED after
a fall on the evening of 07/15/2024. Family states the patient was confused and trying to put on his pants when he fell. Denies any known head strike or loss of consciousness. Has been having right hip pain and leg pain since that time. Also
with mild difficulties in speaking. Was recently hospitalized here for dehydration. Currently on DAPT for his ASCVD history.
AFVSS on arrival to the ED though did have tachycardia initially with heart rate up to 120/min. EKG showing atrial fibrillation with RVR. Labs with hemoglobin 12.8. Urinalysis with 2+ leukocyte esterase, 30-40 WBC per hpf, many bacteria. CT head
without contrast showed no acute intracranial abnormalities, showed diffuse cortical atrophy with nonspecific white matter changes. Right femur x-ray without signs of acute fracture, as was x-ray of the right hip. Was given ceftriaxone, morphine
sulfate, and 1 L IV fluids in the ED
The patient was altered while in the ED. Majority of history obtained from his son at the bedside. States his father was changing close when he fell, denies any syncopal episode. Per his son, he is on multimodal regimen for orthostatic
hypotension however blood pressure more recently has been improved and he is at the use midodrine less frequently.
Medical History
Past Medical History
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
Additional Past Medical History:
ASCVD (left subclavian artery occlusion, right vertebral artery occlusion; C/B left subclavian steal syndrome)
T2DM
HLD
Stage IIIa CKD
gout
trigeminal neuralgia
Past Surgical History: Reports None
Social History
Tobacco: Former Smoker
Alcohol: None
Drug: None
Family History
Family History: Not pertinent
Allergies / Home Medications
Allergies reflects when Allergies were last updated in [facility].
Home Medications with original date entered in [facility]
Allergy/Medication List:
Allergies
Allergy/AdvReac Type Severity Reaction Status Date / Time
amoxicillin AdvReac Nausea / Verified 07/16/24 10:44
Vomiting
Home Medications
allopurinol 100 mg tablet 100 mg PO DAILY Gout 07/16/24
aspirin 81 mg chewable tablet 81 mg PO DAILY Blood Clot Prevention/Tx 07/16/24
atorvastatin 40 mg tablet 40 mg PO QPM high cholesterol 07/16/24
azelastine 137 mcg (0.1 %) nasal spray 1 spray intranasal BID LEFT nostril only 07/16/24
clopidogrel 75 mg tablet 75 mg PO DAILY Blood Clot Prevention/Tx 07/16/24
famotidine 40 mg tablet 40 mg PO HS Gastrointestinal Issue 07/16/24
fludrocortisone 0.1 mg tablet 0.1 mg PO MEALS Blood Pressure 07/16/24
fluticasone propionate 50 mcg/actuation nasal spray,suspension 1 spray intranasal BID LEFT nostril only 07/16/24
ipratropium bromide 42 mcg (0.06 %) nasal spray 1 spray intranasal BID LEFT nostril only 07/16/24
magnesium 250 mg tablet 250 mg PO BID Supplement 07/16/24
midodrine 10 mg tablet 10 mg PO MEALS Blood Pressure 07/16/24
sodium chloride 1,000 mg soluble tablet 1,000 mg PO BID Electrolyte Repletion 07/16/24
Review of Systems
-
Unable to obtain full review of systems at this time due to: Acuity (Metabolic encephalopathy)
Physical Exam
Vital Signs
Vital Signs
Temp Pulse Resp BP Pulse Ox
97.6 F 99 18 139/102 96
07/16/24 10:42 07/16/24 13:45 07/16/24 13:45 07/16/24 13:18 07/16/24 10:42
Physical Exam
General: No Apparent Distress, Cachectic and Other (Frail, elderly)
HEENT: NormoCephalic, Anicteric and Other (Dry mucous membranes)
Respiratory: Clear and Non Labored Respirations; No Accessory Resp Muscle Use
Cardiac: S1/S2, Irregular Rhythm and Tachycardia; No Murmur, Rub, Gallop, Peripheral Edema or JVD
GI: Soft, Non Tender, Non Distended and Normal Bowel Sounds
Musculoskeletal: No Clubbing and No Cyanosis
Skin: Warm and Dry; No Rash
Neuro: Other (Encephalopathic, nonfocal exam, cranial nerves grossly intact)
Psych: Confused
Laboratory Results
-
07/16/24 12:27
07/16/24 12:27
Laboratory Results
APTT 33.5 Sec (23.4-35.0) 07/16/24 14:51
Total Bilirubin 0.7 mg/dl (0.2-1.3) 07/16/24 12:27
AST 28 U/L (17-59) 07/16/24 12:27
ALT 24 U/L (0-50) 07/16/24 12:27
Alkaline Phosphatase 120 U/L (38-126) 07/16/24 12:27
Data Reviewed
-
Diagnostic Radiology: Report Reviewed by me and Discussed with Family
Medical Tests (Nuc Med, Echo, EKG etc): Image Personally Visualized and interpreted, Report Reviewed by me and Discussed with Family
Lab Data: Labs Reviewed by me and Discussed with Family
Impression/Plan
-
#Acute metabolic encephalopathy
-Suspect this is multifactorial with delirium, opiate effect, component of UTI
-Per his son he is AOx3 at baseline, has been lucid at times today though volatile
-Suspect this will improve with correction of the issues as below
-Will monitor neurologic status clinically
#New onset AF with RVR
-Nonvalvular; [id number] 4; likely provoked from stress of fall, possible prerenal state
-Upon arrival had heart rate as high as 120/min, has since improved and within normal limits
-Was not started on any medications while in the emergency department
-Will start on heparin drip empirically for AC, plan for DOAC if not too high risk for him
-Start diltiazem drip at 2.5 mg/h for now
-Order TTE, cardiology consult
-Monitor on telemetry
#UTI
-Urinalysis from the ED with pyuria, many bacteria, positive leukocyte esterase
-Afebrile in the ED, no leukocytosis on initial labs
-Was started on IV ceftriaxone empirically
-Will follow-up urine culture and continue with IV ceftriaxone for now
-Trend CBC and temperature curve
#Mechanical fall at home
#Right hip pain
-Had a fall at home onto his right hip, imaging without signs of fracture
-Was started on morphine sulfate in the ED, adequate response
-Will order CT without contrast to further assess hip/femur
-Consider orthopedics consult pending CT results
-Analgesia: Tylenol/morphine 1 mg IV/morphine 2 mg IV
-PT/OT consult
#ASCVD
#Left subclavian steal
#Bilateral carotid stenosis
#Dyslipidemia
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
-Home medications include DAPT with aspirin and Plavix, high intensity statin
-No signs or symptoms of new atherosclerotic occlusions
#T2DM
-No recent A1c on record, not currently on home medications, no history of microvascular disease
-Will start ISS with Accu-Cheks, blood glucose goal 150�200
#Stage IIIa CKD
-Baseline renal function with creatinine near 1.0, creatinine clearance mid 40s
-No chronic acidemia, anemia, bone mineral disease associated with CKD
-Renal function currently at baseline
#Orthostatic hypotension
-Seems to have severe disease
-Home medications include midodrine, fludrocortisone, NaCl tabs twice daily
-Will monitor for orthostatic symptoms while here, getting IV fluids now
#Hypothyroidism
-Unclear etiology, does not seem to be on any levothyroxine replacement at home
-Per previous documentation
#Gout
-Home meds include allopurinol 100 mg daily
-No signs of acute flare at this time
DVT prophylaxis: Heparin drip
Diet: Regular
CODE STATUS: Full code
[2024-07-16] MEDS: OFIRMEV 100 IV (17:46)
[2024-07-16] MEDS: CARDIZEM 125 IV (17:53)
--- NOTE | 2024-07-16 19:30 | PTCARENOTE ---
Pt arrived from ED via stretcher and pulled over to bed with son at bedside. Pt is AAOx3, forgetful, restless and complaining of pain in the R hip unable to rate. RN given morphine 1mg. Pt has cardizem gtt 2.5mg/hr and heparin gtt 6ml/hr from ED.
VSS. Pt is resting comfortably w/ call domínguez within reach.
[2024-07-16] MEDS: LR 1000 IV (20:07)
[2024-07-16] MEDS: SODIUM CHLORIDE 1 GRAM PO (20:18)
[2024-07-16] MEDS: MAGNESIUM OXIDE 250 MG PO (20:19)
[2024-07-16] MEDS: LIPITOR 40 MG PO (20:20)
[2024-07-16] MEDS: ProAmatine 10 MG PO (20:20)
[2024-07-16] MEDS: FLORINEF 0.1 MG PO (20:21)
[2024-07-16] MEDS: MORPHINE SULFATE 1 MG IV (20:36)
[2024-07-16 22:06] LABS: APTT 33.4 Sec (23.4-35.0)
[2024-07-16] MEDS: PEPCID 20 MG PO (22:35)
--- NOTE | 2024-07-17 00:04 | PTCARENOTE ---
Pt bp 98/66 and heart rate maintaining in the 70's in afib. RN notified AUTO MECHANICS TEACHER- ordered to stop cardizem gtt. Pt is resting comfortably w/ call domínguez within reach.
[2024-07-17] MEDS: OFIRMEV 100 IV ×4 (00:59→20:12)
[2024-07-17 01:54] VITALS: BMI 14.9
[2024-07-17 03:23] VITALS: BP 119/86
[2024-07-17 03:53] LABS: Glucose - Point of Care 112 mg/dl (70-99)
[2024-07-17 05:28] LABS: APTT 68.3 Sec (23.4-35.0)
[2024-07-17 06:00] VITALS: BMI 15.0
[2024-07-17 06:18] LABS: % Basophils 0.1 % (0-2); % Eosinophils 1.4 % (0-6); % Immature Granulocytes 0.2 % (0-0.5); % Lymphocytes 12.9 % (20.5-51.1); % Neutrophils 78.4 % (42.2-75.2); Absolute Eosinophils 0.1 10^3/uL (0-0.7); Absolute Lymphocytes 1.1 10^3/uL (1.2-3.4); Absolute Monocytes 0.6 10^3/uL (0.1-0.6); Absolute Neutrophils 6.6 10^3/uL (1.4-6.5); Hematocrit 34.2 % (39.0-52.0); Hemoglobin 11.8 g/dL (13.0-18.0); Mean Corp Hgb Conc. 34.5 g/dL (33.0-37.0); Mean Corpuscular Hgb 33.2 pg (27.0-31.0); Mean Corpuscular Volume 96.3 fL (80.0-94.0); Mean Platelet Volume 9.9 fL (7.4-10.4); Nucleated Red Blood Cells % 0 % (-); Platelet Count 245 10^3/uL (130-400); Red Blood Cell Count 3.55 10^6/uL (4.70-6.10); Red Cell Dist. Width 13.5 % (11.5-14.5); White Blood Cell Count 8.4 10^3/uL (4.8-10.8)
[2024-07-17 06:43] LABS: Blood Urea Nitrogen 20 mg/dl (9-20); Calcium 8.3 mg/dl (8.4-10.2); Carbon Dioxide 25 mmol/L (22-30); Chloride 106 mmol/L (98-107); Estimated Creatinine Clearance 49 ml/min; Glucose 120 mg/dl (70-99); Magnesium 1.5 mg/dl (1.6-2.3); Potassium 3.2 mmol/L (3.5-5.1); Sodium 141 mmol/L (135-145); eGFR > 60.00
[2024-07-17 06:55] VITALS: BP 136/99
--- NOTE | 2024-07-17 08:06 | CON.CAR ---
Addendum entered and electronically signed by Abundio Rolon MD 07/17/24 13:44:
I saw and examined the patient.
The MANIFEST/ORDER ORGANIZER PRINT ORDERS's note was reviewed and I agree with the note.
Comment: 89-year-old male with orthostatic hypotension, prediabetes, chronic kidney disease, dyslipidemia, gout, prior TIA/CVA and PAD who presented to the emergency department with a chief complaint of a mechanical fall. Upon interview he is
confused thinking he is at a restaurant he appears only oriented to name.
-Diltiazem 30 mg every 6 hrs and Eliquis 2.5 mg twice daily
Original Note:
Consultation
Consultation Request
Date/Time Consultation Requested: 07/16/2024 17:15
Date/Time Consultation Performed: 07/17/2024 08:30
Requesting Provider: Dr. Wang
Performing Provider: FABRICE Richter for Dr. Rolon
Reason for Consultation: Atrial fibrillation
Medical History
-
Chief Complaint: Fall
History of Present Illness:
Cheo Ortiz is an 89-year-old male with orthostatic hypotension, prediabetes, chronic kidney disease, dyslipidemia, gout, prior TIA/CVA and PAD who presented to the emergency department with a chief complaint of a mechanical fall. He presented to
the emergency department 2 days prior to this admission with dehydration. Per his son when he is dehydrated he gets hypotensive, has word slurring, and visual changes. He received IV fluids and was discharged home. This ER visit was prompted by a
fall. He was trying to put his pants on and was confused. He then endorsed right hip pain. In the emergency department he was found to be in atrial fibrillation with rapid ventricular response. Onset unknown. This is a new diagnosis for him.
On exam he is confused. He denies chest pain, shortness of breath, and palpitations.
Past Medical History
Past Medical History: Hypercholesterolemia, Hypothyroidism, Renal Failure (CKD) and Other (PAD, orthostatic hypotension)
Social History
Tobacco: Former Smoker
Employment: Retired
Family History
Family History: Unable to Obtain
Allergies / Home Medications
Allergy/AdvReac Type Severity Reaction Status Date / Time
amoxicillin AdvReac Nausea / Verified 07/16/24 10:44
Vomiting
�Medication �Instructions �Recorded �Confirmed �Type
allopurinol 100 mg tablet 100 mg PO DAILY Gout 07/16/24 07/16/24 History
aspirin 81 mg chewable tablet 81 mg PO DAILY Blood Clot 07/16/24 07/16/24 History
Prevention/Tx
atorvastatin 40 mg tablet 40 mg PO QPM high cholesterol 07/16/24 07/16/24 History
azelastine 137 mcg (0.1 %) nasal 1 spray intranasal BID LEFT 07/16/24 07/16/24 History
spray nostril only
clopidogrel 75 mg tablet 75 mg PO DAILY Blood Clot 07/16/24 07/16/24 History
Prevention/Tx
famotidine 40 mg tablet 40 mg PO HS Gastrointestinal Issue 07/16/24 07/16/24 History
fludrocortisone 0.1 mg tablet 0.1 mg PO MEALS Blood Pressure 07/16/24 07/16/24 History
fluticasone propionate 50 1 spray intranasal BID LEFT 07/16/24 07/16/24 History
mcg/actuation nasal nostril only
spray,suspension
ipratropium bromide 42 mcg (0.06 1 spray intranasal BID LEFT 07/16/24 07/16/24 History
%) nasal spray nostril only
magnesium 250 mg tablet 250 mg PO BID Supplement 07/16/24 07/16/24 History
midodrine 10 mg tablet 10 mg PO MEALS Blood Pressure 07/16/24 07/16/24 History
sodium chloride 1,000 mg soluble 1,000 mg PO BID Electrolyte 07/16/24 07/16/24 History
tablet Repletion
Review of Systems
-
Unable to obtain full review of systems at this time due to: Dementia
Physical Exam
Vital Signs
Temp Pulse Resp BP Pulse Ox
97.5 F 76 20 119/86 91
07/17/24 03:23 07/17/24 03:23 07/17/24 03:23 07/17/24 03:23 07/17/24 03:23
Lab Results
07/17/24 04:58
07/17/24 04:58
Physical Exam
General: Well Developed, No Apparent Distress and Comfortable
HEENT: Normocephalic, Anicteric and Moist Mucous Membranes
Respiratory: Clear and Non Labored Respirations
Cardiac: S1/S2 and Irregular Rhythm; Negative Peripheral Edema
Breast: Deferred by me
GI: Soft, Non Tender, Non Distended and Normal Bowel Sounds
Rectal: Deferred by Provider
Genito-urinary: No Costovertebral Tender
Musculoskeletal: No Clubbing, No Cyanosis and No Edema
Skin: Warm and Dry
Neuro: Awake, Alert and Oriented (To himself)
Hematologic/Lymphatic: No Lymphadenopathy
Psych: Calm
Impression / Plan
-
Atrial fibrillation with rapid ventricular response, new diagnosis
-Rate controlled & off diltiazem gtt, start diltiazem 30mg Q6H
-Oral Anticoagulation: None prior to arrival, currently on heparin drip
-Given his confusion and recent fall, discussion should be made with his family prior to starting oral anticoagulation, if agreeable transition to apixaban 2.5 mg twice daily (age 89, weight <60 kg)
-[id number]: Score at least 4 (age 75 or more, prior Stroke/TIA, Vascular disease)
UTI, per primary
Mechanical fall
Acute fracture of the right acetabulum
-Per primary service
Prior probable TIA
-On ASA and clopidogrel, second agent per neurology if necessary, we are recommending apixaban
Dyslipidemia
-Lipid panel 05/2023: TC 221, LDL 141, HDL 45, TG 201
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
Prediabetes, outpatient A1c 6.0%
Chronic hypotension, on fludrocortisone
Underweight, BMI 15
Data Reviewed
-
EKG: Report Reviewed by me (Atrial fibrillation with rapid ventricular response, inferior and anterolateral ST changes, rate 118)
CT Scan: Report Reviewed by me (RLE: Acute fracture of the right acetabulum with only mild displacement that appears to be a predominantly anterior column fracture. Acute nondisplaced fracture of the right inferior pubic ramus.)
Labs: Labs Reviewed by me
Old Records: Reviewed
[2024-07-17 08:08] LABS: Glucose - Point of Care 131 mg/dl (70-99)
[2024-07-17] MEDS: NOVOLOG FLEXPEN-LOW RESISTANCE SC ×3 (08:10→17:47)
--- NOTE | 2024-07-17 09:05 | CON.ORTHO ---
Consultation
-
Date/Time Consultation Requested: 07/17/24 @8:30am
Date/Time Consultation Performed: 07/17/24 @9:00am
Requesting Provider: Amish Wang
Performing Provider: Monik Hinds PA-C, Damion Howard MD
Reason for Consultation: pelvic fracture
Consultation - Orthopedics
History
HPI: 89yo male admitted to [facility] following a fall. History is mostly obtained from chart review. Patient was confused last night and fell when trying to put his clothes on, landing on the right side. He was having pain to the right hip
and leg following the fall. He was brought to the ER For evaluation. Xrays of the right hip revealed no fracture. CT scan was obtained and revealed pelvic fractures. He is on plavix. He has been confused, but normally is AAOx3 at baseline. He was
recently admitted to [facility] for dehydration. Currently, he does reports pain to the right hip and leg.
PAST MEDICAL HISTORY: ASCVD (left subclavian artery occlusion, right vertebral artery occlusion; C/B left subclavian steal syndrome), T2DM, HLD, Stage IIIa CKD, gout, trigeminal neuralgia
PAST SURGICAL HISTORY: None
SOCIAL HISTORY: former smoker
FAMILY HISTORY: Noncontributory
REVIEW OF SYSTEMS: Unable to obtain due to confusion
Allergies / Home Medications
Allergy/AdvReac Type Severity Reaction Status Date / Time
amoxicillin AdvReac Nausea / Verified 07/16/24 10:44
Vomiting
�Medication �Instructions �Recorded
allopurinol 100 mg tablet 100 mg PO DAILY Gout 07/16/24
aspirin 81 mg chewable tablet 81 mg PO DAILY Blood Clot 07/16/24
Prevention/Tx
atorvastatin 40 mg tablet 40 mg PO QPM high cholesterol 07/16/24
azelastine 137 mcg (0.1 %) nasal 1 spray intranasal BID LEFT 07/16/24
spray nostril only
clopidogrel 75 mg tablet 75 mg PO DAILY Blood Clot 07/16/24
Prevention/Tx
famotidine 40 mg tablet 40 mg PO HS Gastrointestinal Issue 07/16/24
fludrocortisone 0.1 mg tablet 0.1 mg PO MEALS Blood Pressure 07/16/24
fluticasone propionate 50 1 spray intranasal BID LEFT 07/16/24
mcg/actuation nasal nostril only
spray,suspension
ipratropium bromide 42 mcg (0.06 1 spray intranasal BID LEFT 07/16/24
%) nasal spray nostril only
magnesium 250 mg tablet 250 mg PO BID Supplement 07/16/24
midodrine 10 mg tablet 10 mg PO MEALS Blood Pressure 07/16/24
sodium chloride 1,000 mg soluble 1,000 mg PO BID Electrolyte 07/16/24
tablet Repletion
Vital Signs / Lab Results
Temp Pulse Resp BP Pulse Ox
98.8 F 84 18 136/99 94
07/17/24 06:55 07/17/24 06:55 07/17/24 06:55 07/17/24 06:55 07/17/24 06:55
07/17/24 04:58
07/17/24 04:58
RADIOGRAPHIC FINDINGS:
Xrays right hip show no obvious fracture or dislocation
CT Right Lower Extremity shows acute fracture of the right acetabulum with only mild displacement that appears to be a predominantly anterior column fracture. Acute nondisplaced fracture of the right inferior pubic ramus.
PHYSICAL EXAM:
General: able to tell me he is at [facility]. no acute distress
HEENT: NCAT, sclera anicteric, normal hearing
Heart: No JVD
Lungs: Normal work of breathing on room air
MSK: Directed exam of right lower extremity with skin intact. +TTP over groin. Able to range hip with mild discomfort. Calf soft and nontender. Able to plantarflex/dorsiflex the ankle. NVI distally
Assessment / Plan
ASSESSMENT: 89yo male with right minimally displaced anterior column acetabulum and nondisplaced right inferior pubic ramus fractures
PLAN: Unfortunately, Mr. Ortiz has sustained right nondisplaced inferior pubic ramus fracture and right minimally displaced anterior column acetabular fracture following his recent fall. These are amenable to nonoperative treatment. He may be weight
bearing as tolerated with a walker if able, otherwise non weight bearing. PT/OT evaluation when able. Continue with pain management as needed. Continue rest of care per primary team. He may follow up outpatient in 4 weeks for repeat xrays, sooner if
needed. Orthopedics will sign off at this time. Please reach out with any additional questions or concerns.
[2024-07-17] MEDS: ProAmatine 10 MG PO ×2 (09:16→12:41)
[2024-07-17] MEDS: SODIUM CHLORIDE 1 GRAM PO (09:16)
[2024-07-17] MEDS: FLORINEF 0.1 MG PO ×2 (09:17→12:42)
[2024-07-17] MEDS: LOW STRENGTH ASPIRIN 81 MG PO (09:17)
[2024-07-17] MEDS: MAGNESIUM OXIDE 250 MG PO (09:17)
[2024-07-17] MEDS: PLAVIX 75 MG PO (09:17)
[2024-07-17] MEDS: ZYLOPRIM 100 MG PO (09:18)
[2024-07-17 11:32] VITALS: BP 145/86
--- NOTE | 2024-07-17 12:05 | W.PN.HOSP.TC ---
Today's Communication/Plan
-
Continue with IV ceftriaxone
Continue with oral diltiazem, heparin drip
PT/OT
Assessment / Plan
Assessment / Plan
#Acute metabolic encephalopathy
-Suspect this is multifactorial with delirium, opiate effect, component of UTI
-Per his son he is AOx3 at baseline, has been lucid at times today though volatile
-Suspect this will improve with correction of the issues as below
-Mental status is improving today still seems altered
-Will monitor neurologic status clinically
#New onset AF with RVR
-Nonvalvular; [id number] 4; likely provoked from stress of fall, possible prerenal state
-Will start on heparin drip empirically for AC, plan for DOAC if not too high risk for him
-Status post diltiazem drip; now on diltiazem 30 mg every 6 hours for rate control
-Follow-up TTE and plan for goals of care concerning AC
-Monitor on telemetry
#UTI
-Urinalysis from the ED with pyuria, many bacteria, positive leukocyte esterase
-Afebrile in the ED, no leukocytosis on initial labs
-Was started on IV ceftriaxone empirically, plan for 7-day total Abx
-Will follow-up urine culture and continue with IV ceftriaxone for now
-Trend CBC and temperature curve
#Mechanical fall at home
#Mildly displaced right acetabular fracture
-Had a fall at home onto his right hip, imaging without signs of fracture
-Was started on morphine sulfate in the ED, adequate response
-CT showed mildly displaced acetabular fracture, nondisplaced pubic ramus fracture
-Analgesia: Tylenol/morphine 1 mg IV/morphine 2 mg IV
-Currently weightbearing as tolerated with walker
-PT/OT consult pending
#ASCVD
#Left subclavian steal
#Bilateral carotid stenosis
#Dyslipidemia
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
-Home medications include DAPT with aspirin and Plavix, high intensity statin
-No signs or symptoms of new atherosclerotic occlusions
#T2DM
-No recent A1c on record, not currently on home medications, no history of microvascular disease
-Will start ISS with Accu-Cheks, blood glucose goal 150�200
#Stage IIIa CKD
-Baseline renal function with creatinine near 1.0, creatinine clearance mid 40s
-No chronic acidemia, anemia, bone mineral disease associated with CKD
-Renal function currently at baseline
#Orthostatic hypotension
-Seems to have severe disease
-Home medications include midodrine, fludrocortisone, NaCl tabs twice daily
-Will monitor for orthostatic symptoms while here, getting IV fluids now
#Hypothyroidism
-Unclear etiology, does not seem to be on any levothyroxine replacement at home
-Per previous documentation
#Gout
-Home meds include allopurinol 100 mg daily
-No signs of acute flare at this time
DVT prophylaxis: Heparin drip
Diet: Regular
CODE STATUS: Full code
Anticipated Discharge: 24 - 48 hours
Subjective/Interval History
-
Date of Service: July 17, 2024
Seen and examined at bedside. No acute events overnight. AFVSS this morning.
Mental status is improving. He is more talkative though still seems confused
ROS limited by his confusion/encephalopathy
Objective Data
-
Labs:
Laboratory Results
07/17/24 07/17/24
04:58 11:53
WBC 8.4
Hgb 11.8 L
Hct 34.2 L
Plt Count 245
APTT 68.3 H Pending
Sodium 141
Potassium 3.2 L
Chloride 106
Carbon Dioxide 25
BUN 20
Creatinine 0.7
Glucose 120 H
Calcium 8.3 L
Vital Signs:
Vital Signs
Temp Pulse Resp BP Pulse Ox
98.8 F 80 18 136/82 94
07/17/24 06:55 07/17/24 09:16 07/17/24 06:55 07/17/24 09:16 07/17/24 06:55
I&O
07/16/24 07/17/24 07/18/24
06:59 06:59 06:59
Intake Total 0 / 0
Output Total 845 / 845
Balance -845 / -845
Review of Systems
-
Unable to obtain full review of systems at this time due to: Other (Encephalopathy)
Physical Exam
-
General: No Apparent Distress, Comfortable, Cachectic and Other (Frail)
HEENT: Normocephalic, Atraumatic and Moist Mucous Membranes
Respiratory: Clear to Auscultation and Non Labored Respirations; Negative Wheezes, Rales or Rhonchi
Cardiac: S1/S2 and Irregular Rhythm; Negative Murmur, Rub, JVD, Gallop or Tachycardic
GI: Soft, Nontender, Nondistended and Normal Bowel Sounds
Musculoskeletal: No Clubbing, No Cyanosis and No Edema
Skin: Warm and Dry; Negative Rash
Neuro: Awake, Alert, Oriented, Nonfocal/Grossly Intact and Central Nerve's Intact; Negative Tremors
Psych: Confused
Data Reviewed
-
Labs: Labs Reviewed by me and Discussed with Family
[2024-07-17 12:37] LABS: APTT 66.9 Sec (23.4-35.0)
[2024-07-17 12:41] LABS: Glucose - Point of Care 163 mg/dl (70-99)
[2024-07-17] MEDS: LR 1000 IV (12:41)
[2024-07-17] MEDS: CARDIZEM 30 MG PO ×2 (12:42→23:10)
[2024-07-17 14:06] VITALS: BMI 15.0
[2024-07-17] MEDS: ROCEPHIN 1000 MG IV (14:54)
[2024-07-17] MEDS: STERILE WATER FOR INJECTION 10 ML IV (14:55)
[2024-07-17] MEDS: FLUSH (NSS) 10 FLUSH IV ×2 (14:59→15:00)
--- NOTE | 2024-07-17 16:37 | CM ---
Alert confused patient who lives with his son Santos who lives in a 2 story home with 2 step to enter and bed and bathroom on first. He is assisted in all activities of daily living.Spoke with inder Graham he said what every PT OT say . Pt wants to return
home.He has [facility] presently and Palliative care.
[facility] / [facility] history
Pharmacy [facility]
PCP DR Lay Vazquez
PLAN Home with nirav [facility] fax [phone]
[2024-07-17] MEDS: ProAmatine PO (17:30)
[2024-07-17] MEDS: FLORINEF PO (17:30)
--- NOTE | 2024-07-17 17:40 | PTCARENOTE ---
Received patient this am AAOx2. Pt is confused and trying to climb out of bed. Pt placed in chair and patient settled. K 3.2 Potassium Ty started this am as ordered. Pt was screaming that it was burning. K rider topped. Dr. Wang made aware.
Potassium elixir an potassium tabs ordered. Pt refused to take both. Pt became agitated. Dr. Wang made aware. Tolerated diet well for breakfast. Made patient comfortable. Cont to assess patient status. Report given to 4 W RN and patient
transferred.
[2024-07-17] MEDS: LIPITOR PO (17:47)
--- NOTE | 2024-07-17 17:49 | PTCARENOTE ---
Pt received as a transfer from [facility] at 1750. Pt combative, yelling, threatening to punch staff when we go near him. Pt refusing accu checks, vital signs, po meds, etc. Dr Wang notified of patients refusal at 1750. to order prn haldol for pt.
[2024-07-17] MEDS: CARDIZEM PO (17:51)
[2024-07-17 19:30] VITALS: BP 114/64
[2024-07-17] MEDS: MAGNESIUM OXIDE PO ×2 (20:09→20:21)
[2024-07-17] MEDS: SODIUM CHLORIDE PO ×2 (20:11→20:21)
[2024-07-17] MEDS: PEPCID PO ×2 (20:11→20:22)
[2024-07-17 20:20] LABS: APTT 115.4 Sec (23.4-35.0)
[2024-07-17 21:25] LABS: Glucose - Point of Care 166 mg/dl (70-99)
[2024-07-17] MEDS: HEPARIN 25000 UNITS/250 ML IV (23:11)
[2024-07-17 23:46] VITALS: BP 166/95
[2024-07-18] VITALS (9 sets, daily range): BP systolic 90–175; BP diastolic 61–96; PULSE 97; BMI 14.9
[2024-07-18] MEDS: OFIRMEV 100 IV (00:50)
--- NOTE | 2024-07-18 04:31 | DOWNTIME ---
There was a [employer]inist Job Setter Downtime on 07/18/2024 from 0100 to 07/18/2024 at 0355. Downtime documentation of patient's care, including medication administrations, has been reconciled in the electronic record per guidelines. Refer to the
patient's paper chart under the miscellaneous tab to see printed paper medication records and downtime forms.
[2024-07-18 04:43] LABS: Blood Urea Nitrogen 17 mg/dl (9-20); Calcium 8.6 mg/dl (8.4-10.2); Carbon Dioxide 26 mmol/L (22-30); Chloride 103 mmol/L (98-107); Estimated Creatinine Clearance 49 ml/min; Glucose 136 mg/dl (70-99); Sodium 140 mmol/L (135-145); eGFR > 60.00
--- NOTE | 2024-07-18 05:00 | PTCARENOTE ---
Patient refused K elixir and spit it out at RN. Repeat potassium resulted at 3.0. substance abuse clinician SCHEDULE ANALYST Teri made aware, potassium rider ordered. Patient left arm IV recently observed to be leaking. IV nurse called to replaced IV.
[2024-07-18 05:09] LABS: % Basophils 0.2 % (0-2); % Eosinophils 1.5 % (0-6); % Immature Granulocytes 0.4 % (0-0.5); % Lymphocytes 11.8 % (20.5-51.1); % Neutrophils 79.1 % (42.2-75.2); Absolute Eosinophils 0.2 10^3/uL (0-0.7); Absolute Lymphocytes 1.2 10^3/uL (1.2-3.4); Absolute Monocytes 0.7 10^3/uL (0.1-0.6); Absolute Neutrophils 8.1 10^3/uL (1.4-6.5); Hematocrit 33.8 % (39.0-52.0); Hemoglobin 11.8 g/dL (13.0-18.0); Mean Corp Hgb Conc. 34.9 g/dL (33.0-37.0); Mean Corpuscular Hgb 33.5 pg (27.0-31.0); Mean Platelet Volume 10.1 fL (7.4-10.4); Nucleated Red Blood Cells % 0 % (-); Platelet Count 256 10^3/uL (130-400); Red Blood Cell Count 3.52 10^6/uL (4.70-6.10); Red Cell Dist. Width 13.6 % (11.5-14.5); White Blood Cell Count 10.2 10^3/uL (4.8-10.8)
[2024-07-18] MEDS: CARDIZEM 30 MG PO (05:26)
[2024-07-18] MEDS: KCL 270 MEQ IV (05:27)
[2024-07-18 08:15] LABS: Glucose - Point of Care 106 mg/dl (70-99)
[2024-07-18] MEDS: SODIUM CHLORIDE 1 GRAM PO ×2 (08:27→19:36)
[2024-07-18] MEDS: MAGNESIUM OXIDE 250 MG PO ×2 (08:27→19:35)
[2024-07-18] MEDS: ProAmatine 10 MG PO ×3 (08:27→16:08)
[2024-07-18] MEDS: NOVOLOG FLEXPEN-LOW RESISTANCE SC ×2 (08:28→16:49)
[2024-07-18] MEDS: FLORINEF 0.1 MG PO ×3 (08:28→16:08)
[2024-07-18] MEDS: ZYLOPRIM 100 MG PO (08:28)
[2024-07-18] MEDS: ELIQUIS 2.5 MG PO ×2 (08:29→19:36)
--- NOTE | 2024-07-18 08:41 | W.PN.CD ---
Today's Communication / Plan
-
Switch diltiazem to long-acting
Continue apixaban
Cardiology to sign off
Impression / Plan
-
Atrial fibrillation with rapid ventricular response, new diagnosis
-Rate controlled & off diltiazem gtt, switch to long-acting diltiazem 120 mg daily
-Oral Anticoagulation: None prior to arrival, now on apixaban 2.5 mg twice daily (age 89, weight <60 kg)
-No signs or symptoms of bleeding. Hemoglobin stable today
-[id number]: Score at least 4 (age 75 or more, prior Stroke/TIA, Vascular disease)
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 Will ask primary team to discuss with family for follow-up purposes. Please let us know if he wishes to follow-up with us and we will arrange follow-up.
-We will sign off at this time. Please call with any further questions.
UTI, per primary
Mechanical fall
Acute fracture of the right acetabulum
-Per primary service
Prior probable TIA
-Previously on ASA and clopidogrel, now apixaban as above
Dyslipidemia
-Lipid panel 05/2023: TC 221, LDL 141, HDL 45, TG 201
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
Prediabetes, outpatient A1c 6.0%
Chronic hypotension, on fludrocortisone
Underweight, BMI 15
Subjective: Patient hungry ready for breakfast. Otherwise has no chest pain, shortness of breath, or leg swelling. Telemetry shows atrial fibrillation with heart rates in the 70s to 90s.
Physical Exam
Vital Signs/Labs
Vital Signs
Temp Pulse Resp BP Pulse Ox
97.6 F 92 18 175/91 93
07/18/24 07:32 07/18/24 07:32 07/18/24 07:32 07/18/24 07:32 07/18/24 07:32
07/17/24 07/18/24 07/19/24
06:59 06:59 06:59
Actual Weight 47.429 kg 47.23 kg
07/18/24 02:17
APTT 57.0 Sec (23.4-35.0) H 07/18/24 02:17
Magnesium 1.5 mg/dl (1.6-2.3) L 07/17/24 04:58
Physical Exam
Constitutional: No acute distress, Comfortable and Other (Cachectic, frail-appearing)
Cardiovascular: Pedal edema is absent, JVD pressure is normal, Rhythm/rate is irregular and Murmur/rub/gallop absent
Respiratory: Respiratory effort normal and Lungs clear to auscul.
GI: Soft
Data Reviewed
-
Date of Service: July 18, 2024
Medical Decision Making: Reviewed Test Results, Independent Historian Assessment, Test Interpretation and Review of Case with other Provider
EKG: Tracing Personally Visualized and interpreted
Labs: Labs Reviewed by me
Total Time Spent with Patient (in minutes): 35
[2024-07-18] MEDS: LOW STRENGTH ASPIRIN PO (09:26)
[2024-07-18] MEDS: PLAVIX PO (09:26)
--- NOTE | 2024-07-18 10:29 | PN.CDI ---
CDI
- -
CDI:
Physician Documentation Request
Admit Date: 07/16/24 17:47
Dear Doctor Felipe,
Please review the following and provide your response in the progress notes.
Clinical Indicators:
Pt admitted with metabolic encephalopathy, UTI ,and pelvic fractures.
07/17 Registered Dietitian note: 'Pts son reports pt has facial pain and poor appetite. Pt lost ~20 lbs in past two months per son. During visit RD able to observe protrusion of clavical, apparent ribs, temporal wasting, orbital area sunken in and
calf muscle wasting....CBW: 104 lbs 9 oz BMI 15.0 underweight range (07/17). Compared to UBW of 124 lbs two months ago pt with a 20 lb (13%) weight loss significant.
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
If po does not improve pt may benefit from start of nutritional support.'
Based on the above information and your assessment, which of the following most accurately represents the patient's nutritional status?
Severe Protein Malnutrition
Other (please specify)
Bryant Criteria (ACP Hospitalist 2017)
2 or more criteria must be present for either
non severe or severe malnutrition
Note that the criteria differs related to the
presence of an acute or chronic illness
Chronic Illness
Energy Intake Non Severe: <75% for >1 month
Severe: <75% for >1 month
Weight Loss Non Severe: 5% over 1 month
7.5% over 3 months
10% over 6 months
20% over 1 year
Severe: >5% over 1 month
>7.5% over 3 months
>10% over 6 months
>20% over 1 year
Body Fat Non Severe: Mild Loss
Severe: Severe Loss
Muscle Mass Non Severe: Mild Loss
Severe: Severe Loss
Additional criteria that can be used to Determine if Mild or Moderate Malnutrition (Merck Manual 2018)
Use of terms such as suspected, likely, concern for, or probable (associated with a specific diagnosis that is being evaluated, monitored, or treated as if it exists) are acceptable and can be coded in the inpatient setting, when documented at the
time of discharge.
Thank you,
Ana Gray RN, BSN
CDI Specialist
Available via [employer]
Please use your independent medical judgment in providing your response.
[2024-07-18] MEDS: CARDIZEM CD 120 MG PO (10:49)
[2024-07-18 12:00] LABS: Glucose - Point of Care 163 mg/dl (70-99)
--- NOTE | 2024-07-18 12:01 | W.PN.HOSP.TC ---
Addendum entered and electronically signed by Amish Wang DO 07/18/24 12:16:
CDI: Severe protein malnutrition present, BMI near 16
Original Note:
Today's Communication/Plan
-
Transition to cefdinir to complete 7 days
Continue with diltiazem ER and Eliquis
Discharge home
Assessment / Plan
Assessment / Plan
#Acute metabolic encephalopathy
-Suspect this is multifactorial with delirium, opiate effect, component of UTI
-Per his son he is AOx3 at baseline, has been lucid at times today though volatile
-Suspect this will improve with correction of the issues as below
-Mental status is improving today still seems altered
-Appears back at baseline
#New onset AF with RVR
-Nonvalvular; [id number] 4; likely provoked from stress of fall, possible prerenal state
-Status post diltiazem drip; now on long-acting diltiazem and reduced dose Eliquis
-Heart rate currently well-controlled, in range of 70 to 90/min however
#UTI
-Urinalysis from the ED with pyuria, many bacteria, positive leukocyte esterase
-Urine culture returned positive for E. coli with resistance to ciprofloxacin and tetracyclines
-Plan to transition from ceftriaxone to cefdinir to complete 7-day course
-Trend CBC and temperature curve
#Mechanical fall at home
#Mildly displaced right acetabular fracture
-Had a fall at home onto his right hip, imaging without signs of fracture
-Was started on morphine sulfate in the ED, adequate response
-CT showed mildly displaced acetabular fracture, nondisplaced pubic ramus fracture
-Analgesia: Tylenol/morphine 1 mg IV/morphine 2 mg IV
-Currently weightbearing as tolerated with walker
-PT/OT consult pending
#ASCVD
#Left subclavian steal
#Bilateral carotid stenosis
#Dyslipidemia
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
-Home medications include DAPT with aspirin and Plavix, high intensity statin
-No signs or symptoms of new atherosclerotic occlusions
#T2DM
-No recent A1c on record, not currently on home medications, no history of microvascular disease
-Will start ISS with Accu-Cheks, blood glucose goal 150�200
#Stage IIIa CKD
-Baseline renal function with creatinine near 1.0, creatinine clearance mid 40s
-No chronic acidemia, anemia, bone mineral disease associated with CKD
-Renal function currently at baseline
#Orthostatic hypotension
-Seems to have severe disease
-Home medications include midodrine, fludrocortisone, NaCl tabs twice daily
-Will monitor for orthostatic symptoms while here, getting IV fluids now
#Hypothyroidism
-Unclear etiology, does not seem to be on any levothyroxine replacement at home
-Per previous documentation
#Gout
-Home meds include allopurinol 100 mg daily
-No signs of acute flare at this time
DVT prophylaxis: Heparin drip
Diet: Regular
CODE STATUS: Full code
Anticipated Discharge: Today
Subjective/Interval History
-
Date of Service: July 18, 2024
Seen and examined at the bedside today. No acute events reported overnight. AFVSS this morning.
He was fairly agitated later in the day yesterday however seems much more pleasant today.
Denies any acute complaints
Objective Data
-
Labs:
Laboratory Results
07/18/24 07/18/24 07/18/24
02:16 02:17 11:32
WBC 10.2
Hgb 11.8 L
Hct 33.8 L
Plt Count 256
APTT Cancelled 57.0 H Pending
Sodium 140 Pending
Potassium 3.0 L Pending
Chloride 103 Pending
Carbon Dioxide 26 Pending
BUN 17 Pending
Creatinine 0.7 Pending
Glucose 136 H Pending
Calcium 8.6 Pending
Vital Signs:
Vital Signs
Temp Pulse Resp BP Pulse Ox
98.6 F 94 17 141/81 94
07/18/24 10:57 07/18/24 10:57 07/18/24 10:57 07/18/24 10:57 07/18/24 10:57
I&O
07/17/24 07/18/24 07/19/24
06:59 06:59 06:59
Intake Total 0 / 0 540 / 540
Output Total 845 / 845 1200 / 1200
Balance -845 / -845 -660 / -660
Review of Systems
-
History Source: Patient
All other systems: Reviewed and negative
Physical Exam
-
General: No Apparent Distress, Comfortable and Cachectic
HEENT: Normocephalic, Atraumatic and Moist Mucous Membranes
Respiratory: Clear to Auscultation and Non Labored Respirations; Negative Wheezes, Rales or Rhonchi
Cardiac: S1/S2 and Irregular Rhythm; Negative Murmur, Rub, Gallop or Tachycardic
GI: Soft, Nontender, Nondistended and Normal Bowel Sounds
Musculoskeletal: No Clubbing, No Cyanosis and No Edema
Skin: Warm and Dry; Negative Rash
Neuro: Awake, Alert, Oriented, Nonfocal/Grossly Intact and Central Nerve's Intact
Psych: Calm
Data Reviewed
-
Diagnostic Radiology: Report Reviewed by me and Discussed with Patient
Labs: Labs Reviewed by me and Discussed with Patient
[2024-07-18 12:15] LABS: APTT 37.6 Sec (23.4-35.0)
[2024-07-18 12:27] LABS: Blood Urea Nitrogen 16 mg/dl (9-20); Calcium 8.7 mg/dl (8.4-10.2); Carbon Dioxide 25 mmol/L (22-30); Chloride 104 mmol/L (98-107); Estimated Creatinine Clearance 49 ml/min; Glucose 156 mg/dl (70-99); Potassium 3.5 mmol/L (3.5-5.1); Sodium 142 mmol/L (135-145); eGFR > 60.00
[2024-07-18] MEDS: NOVOLOG FLEXPEN-LOW RESISTANCE 1 UNITS SC (13:15)
--- NOTE | 2024-07-18 13:23 | CM ---
Addendum entered by Maria Elena Quezada 07/18/24 15:15:
CM met with patients son and daughter in law, per family, patient is typically alert/oriented. Family requesting referral to [facility]. CM explained patient will need to meet criteria for acute rehab acceptance. Son reports patient had a bad
experience at [facility] and patient is fearful to discharge to SNF. CM will continue to follow for all discharge planning needs.
Plan; Family requesting acute rehab, per PT/OT, recommending SNF.
Original Note:
CM reviewed chart, met with patient bedside. Patient is current with [facility], referral previously sent in [facility]. Patient current with [facility] care. Will follow for PT evals for SNF recommendations. CM will continue to follow for all discharge
planning needs.
Plan; SNF vs home with [facility], [facility] care.
[2024-07-18] MEDS: ROCEPHIN 1000 MG IV (13:25)
[2024-07-18] MEDS: STERILE WATER FOR INJECTION 10 ML IV (13:25)
[2024-07-18] MEDS: LR 1000 IV (16:01)
[2024-07-18] MEDS: LIPITOR 40 MG PO (16:08)
[2024-07-18 16:36] LABS: Glucose - Point of Care 147 mg/dl (70-99)
[2024-07-18] MEDS: FLUSH (NSS) IV ×2 (17:32→17:33)
[2024-07-18] MEDS: PEPCID 20 MG PO (19:34)
[2024-07-18 21:21] LABS: Glucose - Point of Care 144 mg/dl (70-99)
[2024-07-18] MEDS: TYLENOL 1000 MG PO (22:45)
[2024-07-19] VITALS (8 sets, daily range): BP systolic 73–170; BP diastolic 53–94; PULSE 96; O2SAT 85; BMI 15.5
[2024-07-19] MEDS: LR 1000 IV (04:13)
[2024-07-19] MEDS: MAGNESIUM OXIDE 250 MG PO ×2 (07:44→19:58)
[2024-07-19] MEDS: ProAmatine PO ×3 (07:45→17:06)
[2024-07-19] MEDS: ELIQUIS 2.5 MG PO ×2 (07:46→19:58)
[2024-07-19] MEDS: TYLENOL 1000 MG PO ×2 (07:46→15:27)
[2024-07-19] MEDS: MIRALAX 17 GRAMS PO (07:46)
[2024-07-19] MEDS: FLORINEF 0.1 MG PO ×3 (07:47→17:07)
[2024-07-19] MEDS: SODIUM CHLORIDE 1 GRAM PO (07:47)
[2024-07-19] MEDS: CARDIZEM CD 120 MG PO (07:47)
[2024-07-19] MEDS: ZYLOPRIM 100 MG PO (07:47)
[2024-07-19 07:55] LABS: Glucose - Point of Care 131 mg/dl (70-99)
[2024-07-19] MEDS: NOVOLOG FLEXPEN-LOW RESISTANCE SC (08:01)
[2024-07-19 08:36] LABS: % Basophils 0.2 % (0-2); % Eosinophils 1.4 % (0-6); % Immature Granulocytes 0.3 % (0-0.5); % Lymphocytes 11.6 % (20.5-51.1); % Monocytes 7.8 % (1.7-9.3); % Neutrophils 78.7 % (42.2-75.2); Absolute Eosinophils 0.2 10^3/uL (0-0.7); Absolute Lymphocytes 1.2 10^3/uL (1.2-3.4); Absolute Monocytes 0.8 10^3/uL (0.1-0.6); Absolute Neutrophils 8.3 10^3/uL (1.4-6.5); Hematocrit 36.2 % (39.0-52.0); Hemoglobin 12.6 g/dL (13.0-18.0); Mean Corp Hgb Conc. 34.8 g/dL (33.0-37.0); Mean Corpuscular Hgb 32.6 pg (27.0-31.0); Mean Corpuscular Volume 93.8 fL (80.0-94.0); Nucleated Red Blood Cells % 0 % (-); Platelet Count 289 10^3/uL (130-400); Red Blood Cell Count 3.86 10^6/uL (4.70-6.10); Red Cell Dist. Width 13.9 % (11.5-14.5); White Blood Cell Count 10.6 10^3/uL (4.8-10.8)
[2024-07-19 09:18] LABS: Blood Urea Nitrogen 22 mg/dl (9-20); Calcium 8.9 mg/dl (8.4-10.2); Carbon Dioxide 26 mmol/L (22-30); Chloride 103 mmol/L (98-107); Estimated Creatinine Clearance 44 ml/min; Glucose 130 mg/dl (70-99); Potassium 3.5 mmol/L (3.5-5.1); Sodium 140 mmol/L (135-145); eGFR > 60.00
--- NOTE | 2024-07-19 11:12 | W.PN.HOSP.TC ---
Today's Communication/Plan
-
Transition to oral antibiotics
Wean oxygen
Discharge to SNF
Assessment / Plan
Assessment / Plan
#Acute metabolic encephalopathy
-Suspect this is multifactorial with delirium, opiate effect, component of UTI
-Per his son he is AOx3 at baseline, has been lucid at times today though volatile
-Suspect this will improve with correction of the issues as below
-Mental status is improving today still seems altered
-Appears back at baseline
#New onset AF with RVR
-Nonvalvular; [id number] 4; likely provoked from stress of fall, possible prerenal state
-Status post diltiazem drip; now on long-acting diltiazem and reduced dose Eliquis
-Heart rate currently well-controlled, in range of 70 to 90/min however
#UTI
-Urinalysis from the ED with pyuria, many bacteria, positive leukocyte esterase
-Urine culture returned positive for E. coli with resistance to ciprofloxacin and tetracyclines
-Transition from ceftriaxone to cefdinir to complete 7-day course
-Trend CBC and temperature curve
#Mechanical fall at home
#Mildly displaced right acetabular fracture
-Had a fall at home onto his right hip, imaging without signs of fracture
-Was started on morphine sulfate in the ED, adequate response
-CT showed mildly displaced acetabular fracture, nondisplaced pubic ramus fracture
-Analgesia: Tylenol/morphine 1 mg IV/morphine 2 mg IV
-Currently weightbearing as tolerated with walker
-PT/OT consult pending
#ASCVD
#Left subclavian steal
#Bilateral carotid stenosis
#Dyslipidemia
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
-Home medications include DAPT with aspirin and Plavix, high intensity statin
-No signs or symptoms of new atherosclerotic occlusions
#T2DM
-No recent A1c on record, not currently on home medications, no history of microvascular disease
-Will start ISS with Accu-Cheks, blood glucose goal 150�200
#Stage IIIa CKD
-Baseline renal function with creatinine near 1.0, creatinine clearance mid 40s
-No chronic acidemia, anemia, bone mineral disease associated with CKD
-Renal function currently at baseline
#Orthostatic hypotension
-Seems to have severe disease
-Home medications include midodrine, fludrocortisone, NaCl tabs twice daily
-Will monitor for orthostatic symptoms while here, getting IV fluids now
#Hypothyroidism
-Unclear etiology, does not seem to be on any levothyroxine replacement at home
-Per previous documentation
#Gout
-Home meds include allopurinol 100 mg daily
-No signs of acute flare at this time
DVT prophylaxis: Heparin drip
Diet: Regular
CODE STATUS: Full code
Anticipated Discharge: Today
Subjective/Interval History
-
Date of Service: July 19, 2024
Seen and examined at bedside. No acute events report overnight. AFVSS this morning, on 4 L. Patient is noted to be a mouth breather when sleeping, suspect he can be weaned off oxygen.
Chest x-ray with possible chronic interstitial markings at the left base versus edema. Appeared comfortable in the room.
ROS difficult due to likely dementia, states he has right hip pain though denies other complaints such as shortness of breath or chest pain. Denies fevers
Objective Data
-
Labs:
Laboratory Results
07/19/24
08:18
WBC 10.6
Hgb 12.6 L
Hct 36.2 L
Plt Count 289
Sodium 140
Potassium 3.5
Chloride 103
Carbon Dioxide 26
BUN 22 H
Creatinine 0.8
Glucose 130 H
Calcium 8.9
Vital Signs:
Vital Signs
Temp Pulse Resp BP Pulse Ox
97.5 F 84 17 170/90 91
07/19/24 07:43 07/19/24 07:43 07/19/24 07:43 07/19/24 07:45 07/19/24 07:43
I&O
07/18/24 07/19/24 07/20/24
06:59 06:59 06:59
Intake Total 540 / 540 1590 / 1590
Output Total 1200 / 1200 915 / 915
Balance -660 / -660 675 / 675
Review of Systems
-
History Source: Patient
All other systems: Reviewed and negative
Physical Exam
-
General: No Apparent Distress, Comfortable and Cachectic
HEENT: Normocephalic, Atraumatic and Moist Mucous Membranes
Respiratory: Clear to Auscultation and Non Labored Respirations; Negative Wheezes, Rales, Rhonchi or Accessory Resp Muscle Use
Cardiac: Regular Rhythm and S1/S2; Negative Murmur, Rub or Gallop
GI: Soft, Nontender, Nondistended and Normal Bowel Sounds
Musculoskeletal: No Clubbing, No Cyanosis and No Edema
Skin: Warm and Dry; Negative Rash
Neuro: Awake, Alert, Oriented, Nonfocal/Grossly Intact and Central Nerve's Intact
Psych: Calm
Data Reviewed
-
Labs: Labs Reviewed by me
--- NOTE | 2024-07-19 11:53 | CM ---
CM reviewed chart, discussed with [facility] liaison, unable to accept patient at this time, recommending SNF. CM placed call to son, Santos, to discuss SNF referrals. CM will continue to follow for all discharge planning needs.
Plan; SNF pending accepting facilities, awaiting conversation with family for SNF preferences.
[2024-07-19] MEDS: OMNICEF 300 MG PO ×2 (12:03→19:57)
[2024-07-19 12:15] LABS: Glucose - Point of Care 141 mg/dl (70-99)
[2024-07-19] MEDS: ProAmatine 10 MG PO ×2 (12:52→20:38)
[2024-07-19] MEDS: LIPITOR 40 MG PO (17:07)
[2024-07-19] MEDS: SODIUM CHLORIDE PO ×2 (19:59→20:39)
[2024-07-19] MEDS: NSS 500 IV (20:39)
[2024-07-19 21:45] LABS: Glucose - Point of Care 127 mg/dl (70-99)
[2024-07-19] MEDS: TYLENOL 650 MG PO (21:46)
[2024-07-19] MEDS: PEPCID 20 MG PO (21:46)
[2024-07-20] VITALS (9 sets, daily range): BP systolic 80–110; BP diastolic 49–74; BMI 15.5
[2024-07-20] MEDS: SENOKOT-S 1 TABLET PO (03:27)
[2024-07-20] MEDS: TYLENOL 650 MG PO ×3 (06:10→21:36)
[2024-07-20] MEDS: CARDIZEM CD 120 MG PO (07:13)
[2024-07-20] MEDS: ProAmatine 10 MG PO ×3 (07:14→17:18)
--- NOTE | 2024-07-20 07:38 | PTCARENOTE ---
Patient`s heart rate increased to 140`s but did not sustain. Heart rate is currently 103. Midodrine and cardizem given po to patient.
[2024-07-20] MEDS: MORPHINE SULFATE 1 MG IV (08:04)
[2024-07-20] MEDS: OMNICEF 300 MG PO ×2 (08:08→21:32)
[2024-07-20] MEDS: FLORINEF 0.1 MG PO ×3 (08:08→17:18)
[2024-07-20] MEDS: ZYLOPRIM 100 MG PO (08:08)
[2024-07-20] MEDS: ELIQUIS 2.5 MG PO ×2 (08:08→21:33)
[2024-07-20] MEDS: SODIUM CHLORIDE 1 GRAM PO ×2 (08:13→21:33)
[2024-07-20] MEDS: MAGNESIUM OXIDE 250 MG PO ×2 (08:13→21:33)
--- NOTE | 2024-07-20 10:58 | W.PN.HOSP.TC ---
Today's Communication/Plan
-
Wean off oxygen as able
SNF planning
Assessment / Plan
Assessment / Plan
#Intermittent hypoxemia
#Severe emphysema
-Patient has had desaturations mostly in the early mornings while here; suspect sleep apnea
-Multiple x-rays have shown fairly stable lower lung findings which is most likely scarring/fibrosis
-He does have severe emphysema as well on scans, no wheezing or signs of CO2 retention
-He has quickly improved after waking up in the mornings, usually titrated off oxygen rapidly
-Will continue to monitor, consider diuretic
-Trend CBC and temperature curve
#Acute metabolic encephalopathy
-Suspect this is multifactorial with delirium, opiate effect, component of UTI
-Per his son he is AOx3 at baseline, has been lucid at times today though volatile
-Suspect this will improve with correction of the issues as below
-Mental status is improving today still seems altered
-Appears back at baseline
#New onset AF with RVR
-Nonvalvular; [id number] 4; likely provoked from stress of fall, possible prerenal state
-Status post diltiazem drip; now on long-acting diltiazem and reduced dose Eliquis
-Heart rate currently well-controlled, in range of 70 to 90/min however
#UTI
-Urinalysis from the ED with pyuria, many bacteria, positive leukocyte esterase
-Urine culture returned positive for E. coli with resistance to ciprofloxacin and tetracyclines
-Transition from ceftriaxone to cefdinir to complete 7-day course
-Trend CBC and temperature curve
#Mechanical fall at home
#Mildly displaced right acetabular fracture
-Had a fall at home onto his right hip, imaging without signs of fracture
-Was started on morphine sulfate in the ED, adequate response
-CT showed mildly displaced acetabular fracture, nondisplaced pubic ramus fracture
-Analgesia: Tylenol/morphine 1 mg IV/morphine 2 mg IV
-Currently weightbearing as tolerated with walker
-PT/OT consult pending
#ASCVD
#Left subclavian steal
#Bilateral carotid stenosis
#Dyslipidemia
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
-Home medications include DAPT with aspirin and Plavix, high intensity statin
-No signs or symptoms of new atherosclerotic occlusions
#T2DM
-No recent A1c on record, not currently on home medications, no history of microvascular disease
-Will start ISS with Accu-Cheks, blood glucose goal 150�200
#Stage IIIa CKD
-Baseline renal function with creatinine near 1.0, creatinine clearance mid 40s
-No chronic acidemia, anemia, bone mineral disease associated with CKD
-Renal function currently at baseline
#Orthostatic hypotension
-Seems to have severe disease
-Home medications include midodrine, fludrocortisone, NaCl tabs twice daily
-Will monitor for orthostatic symptoms while here
#Hypothyroidism
-Unclear etiology, does not seem to be on any levothyroxine replacement at home
-Per previous documentation
#Gout
-Home meds include allopurinol 100 mg daily
-No signs of acute flare at this time
DVT prophylaxis: Heparin drip
Diet: Regular
CODE STATUS: Full code
Anticipated Discharge: Within 24 hours
Subjective/Interval History
-
Date of Service: July 20, 2024
Seen and examined at the bedside. No acute events reported overnight. This morning his blood pressure was soft though did improve per nursing, heart rate low 100s. He did require 6 L of oxygen as of this morning for desaturations into the low 70s.
His chest x-ray showed similar findings to scan done yesterday, possible component of worsening edema at the left lung base. He does have significant mouth breathing, likely component of apnea. Suspect he will be weaned off oxygen over today
though will consider diuretics if O2 status worsens.
He denies any acute complaints to me. States his right hip pain is present though manageable. Denies shortness of breath or chest pain. Denies fevers or chills.
Objective Data
-
Vital Signs:
Vital Signs
Temp Pulse Resp BP Pulse Ox
98.2 F 113 28 90/70 72
07/20/24 07:00 07/20/24 07:13 07/20/24 07:00 07/20/24 07:13 07/20/24 07:00
I&O
07/19/24 07/20/24 07/21/24
06:59 06:59 06:59
Intake Total 1590 / 1590 480 / 480
Output Total 915 / 915 965 / 965
Balance 675 / 675 -485 / -485
Review of Systems
-
History Source: Patient
All other systems: Reviewed and negative
Physical Exam
-
General: No Apparent Distress, Comfortable and Cachectic
HEENT: Normocephalic, Atraumatic and Moist Mucous Membranes
Respiratory: Crackles (Bibasilar, stable) and Non Labored Respirations; Negative Wheezes, Rales, Rhonchi or Accessory Resp Muscle Use
Cardiac: Regular Rhythm and S1/S2; Negative Murmur, Rub, JVD or Gallop
GI: Soft, Nontender, Nondistended and Normal Bowel Sounds
Musculoskeletal: No Clubbing, No Cyanosis and No Edema
Skin: Warm and Dry; Negative Rash
Neuro: Awake, Alert, Oriented, Nonfocal/Grossly Intact and Central Nerve's Intact
Psych: Calm
Data Reviewed
-
Labs: Labs Reviewed by me
--- NOTE | 2024-07-20 14:03 | CM ---
CM met with patient and son, Santos, bedside, discussed SNF recommendation. Son requesting referrals to [facility], and [facility]. CM will continue to follow for all discharge planning needs.
Plan; SNF pending accepting facility, son would like to transport to facility.
[2024-07-20] MEDS: LIPITOR 40 MG PO (17:18)
[2024-07-20] MEDS: LASIX 20 MG IV (18:46)
[2024-07-20] MEDS: KCL 20 MEQ PO (18:50)
--- NOTE | 2024-07-20 18:55 | RR ---
A Rapid Response was called on this patient, please see Rapid Response form.
Pt with sats in the 60's to 70's on 6L O2. Pt talking and appears in no distress. BP's on the lower side 90's systolic. Pt without any further complaints. RR called. NRB placed. Sats up to 98%. Resp therapy attempted to wean to VM but pt back down
in the 70's. Will transfer to IMU as per CARPENTER BRIDGE.
--- NOTE | 2024-07-20 19:12 | W.PN.UPDATE ---
Update Note
Progress Note Update
Alerted by nursing that patient was hypoxemic and escalated to 8L O2 due to spO2 in the 70s. Xray from earlier showed likely worsening pulmonary edema. Patient received IVF with 500 mL bolus overnight prior to escalating O2 requirements. BP was soft
earlier but currently 105/65. Will give dose of IV lasix 20 now and titrate O2 for SpO2 goal > 88% in context of severe emphysema on CXR.
Pulmonary exam has had diminished sounds with crackles at bases over hospital stay. No wheezes have been appreciated but will consider steroid therapy if respiratory status continues to worsen. Currently ordere duo nebs Q4 PRN, will change to
standing Q4
--- NOTE | 2024-07-20 21:32 | W.PN.UPDATE ---
Update Note
Progress Note Update
Rapid Response called. Patient oxygen level in 60's-70's on 8L oxygen. Patient oriented, denies any chest pain, shortness of breath, does not look in any apparent distress. Lungs crackles R>L. no peripheral edema, voiding without difficulty. Oxygen
level increased to 95 on 15 L NRM, RT 16 BP 101/60's, HR 80
Advised to wean him off to oxygen >88% NC. Previous X-ray results noted.
RT texted stating oxygen level dropped to 60-70's again, RT maintaining patient on NRM. Will transfer to IMU for possible Bipap, will order baseline ABG.
[2024-07-20] MEDS: PEPCID 20 MG PO (21:33)
[2024-07-20 22:02] LABS: B.E. 4.3 mmol/L; HCO3 26.5 mmol/L (21-28); PCO2 31 mmHg (35-48); PO2 162 mmHg (83-108); pH 7.54 (7.35-7.45)
--- NOTE | 2024-07-20 23:50 | PTCARENOTE ---
Rec'd pt as upgrade from previous RN. Upon assessment, pt is very pale, 78-82% SaO2 on NRB. Pt denies distress, discomfort, but is open-mouth breathing. Pt c/o urge to void, voided less than 50mls in urinal. Bladder scan >500. FABRICE Goldsmith ordered
this RN to place neville catheter. Neville placed with 650ml out. Pt SaO2 improved to 98% on NRB.
[2024-07-21] VITALS (13 sets, daily range): BP systolic 91–129; BP diastolic 63–85; BMI 15.2
[2024-07-21] MEDS: DUONEB INH (02:52)
[2024-07-21 04:24] LABS: % Basophils 0.1 % (0-2); % Eosinophils 0.1 % (0-6); % Immature Granulocytes 0.7 % (0-0.5); % Lymphocytes 7.3 % (20.5-51.1); % Monocytes 5.5 % (1.7-9.3); % Neutrophils 86.3 % (42.2-75.2); Absolute Immature Granulocytes 0.1 10^3/uL (0-0.05); Absolute Lymphocytes 1.1 10^3/uL (1.2-3.4); Absolute Monocytes 0.8 10^3/uL (0.1-0.6); Absolute Neutrophils 12.8 10^3/uL (1.4-6.5); Hematocrit 31.7 % (39.0-52.0); Mean Corp Hgb Conc. 34.7 g/dL (33.0-37.0); Mean Corpuscular Hgb 32.5 pg (27.0-31.0); Mean Corpuscular Volume 93.8 fL (80.0-94.0); Mean Platelet Volume 10.2 fL (7.4-10.4); Nucleated Red Blood Cells % 0 % (-); Platelet Count 301 10^3/uL (130-400); Red Blood Cell Count 3.38 10^6/uL (4.70-6.10); Red Cell Dist. Width 14.1 % (11.5-14.5); White Blood Cell Count 14.8 10^3/uL (4.8-10.8)
[2024-07-21 04:45] LABS: Albumin 3.3 g/dl (3.5-5.0); Blood Urea Nitrogen 33 mg/dl (9-20); Calcium 8.6 mg/dl (8.4-10.2); Carbon Dioxide 27 mmol/L (22-30); Chloride 103 mmol/L (98-107); Estimated Creatinine Clearance 39 ml/min; Glucose 133 mg/dl (70-99); Potassium 3.7 mmol/L (3.5-5.1); Sodium 144 mmol/L (135-145); eGFR > 60.00
[2024-07-21] MEDS: DUONEB 3 ML INH ×3 (08:26→19:12)
[2024-07-21] MEDS: LASIX 40 MG IV (08:33)
--- NOTE | 2024-07-21 08:42 | PTCARENOTE ---
Addendum entered by Estefania Adrian 07/21/24 12:21:
Pt seen by speech, advised pt should be strict NPO. PO medications marked not given, Dr. Wang notified.
Addendum entered by Estefania Adrian 07/21/24 12:00:
Pt NPO for speech eval, all PO medications held at this time- Dr. Wang aware. Awaiting speech eval.
Original Note:
Pt set off bed alarm, found by PCT at edge of bed with O2 off and sats quickly dropped to 60's. This RN and other staff to bedside. Pt nearly syncopal. Assisted pt back into bed, RT at bedside who placed pt on 15L MFNC in addition to 15L NRB. Sats
recovered to 90's. Dr. Wang to bedside, orders placed by provider. IV lasix administered, see DEC. XR at bedside to obtain portable. Dr. Bautista to bedside.
--- NOTE | 2024-07-21 10:36 | W.PN.HOSP.TC ---
Today's Communication/Plan
-
IV Lasix
IV steroid
Bronchodilators
Wean O2 for goal >88%
Pulmonology consult
Assessment / Plan
Assessment / Plan
#Acute hypoxemic respiratory failure
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
#Leukocytosis
-Unclear cause for his worsening pulmonary status, differentials include ILD versus pulmonary edema
-Also has been altered fairly consistently while here, question if he is aspirating as well
-X-rays here show severe emphysema, signs of ILD versus IPF; minimal known history concerning these
-Initially was on room air though has required up titration to nonrebreather today
-Chest x-ray this morning more concerning for interstitial inflammation and pulmonary edema
-Currently on IV Lasix and started on IV steroid; also on cefdinir for UTI
Plan
-Order IV Lasix 40 mg now
-Order IV Solu-Medrol 40 mg now
-Continue with standing DuoNebs
-Wean oxygen for SpO2 goal >88%
-Consider CT thorax when more stable
-Pulmonology consult
-Trend CBC and temperature curve
#Acute metabolic encephalopathy
-Suspect this is multifactorial with delirium, opiate effect, component of UTI
-Per his son he is AOx3 at baseline, has been lucid at times today though volatile
-Suspect this will improve with correction of the issues as below
-Does have intermittent times when he seems lucid though more altered today
#New onset AF with RVR
-Nonvalvular; [id number] 4; likely provoked from stress of fall, possible prerenal state
-Status post diltiazem drip; now on long-acting diltiazem and reduced dose Eliquis
-Heart rate currently well-controlled
#UTI
-Urinalysis from the ED with pyuria, many bacteria, positive leukocyte esterase
-Urine culture returned positive for E. coli with resistance to ciprofloxacin and tetracyclines
-Transition from ceftriaxone to cefdinir to complete 7-day course
-Trend CBC and temperature curve
#Mechanical fall at home
#Mildly displaced right acetabular fracture
-Had a fall at home onto his right hip, imaging without signs of fracture
-Was started on morphine sulfate in the ED, adequate response
-CT showed mildly displaced acetabular fracture, nondisplaced pubic ramus fracture
-Analgesia: Tylenol/morphine 1 mg IV/morphine 2 mg IV
-Currently weightbearing as tolerated with walker
-PT/OT consult pending
#ASCVD
#Left subclavian steal
#Bilateral carotid stenosis
#Dyslipidemia
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
-Home medications include DAPT with aspirin and Plavix, high intensity statin
-No signs or symptoms of new atherosclerotic occlusions
#T2DM
-No recent A1c on record, not currently on home medications, no history of microvascular disease
-Will start ISS with Accu-Cheks, blood glucose goal 150�200
#Stage IIIa CKD
-Baseline renal function with creatinine near 1.0, creatinine clearance mid 40s
-No chronic acidemia, anemia, bone mineral disease associated with CKD
-Renal function currently at baseline
#Orthostatic hypotension
-Seems to have severe disease
-Home medications include midodrine, fludrocortisone, NaCl tabs twice daily
-Will monitor for orthostatic symptoms while here
#Hypothyroidism
-Unclear etiology, does not seem to be on any levothyroxine replacement at home
-Per previous documentation
#Gout
-Home meds include allopurinol 100 mg daily
-No signs of acute flare at this time
DVT prophylaxis: Heparin drip
Diet: Regular
CODE STATUS: Full code
Anticipated Discharge: > 48 hours
Subjective/Interval History
-
Date of Service: July 21, 2024
Seen and examined at the bedside. [employer] overnight for hypoxemia, upgraded to IMU. Currently hemodynamically stable though requiring NRB for SpO2 in the 90s.
Repeat chest x-ray today more consistent with interstitial inflammation >pulmonary edema. No known history of ILD. Does have severe emphysema with only [id number] smoking history per pulm.
ROS limited by patient's mental status
Objective Data
-
Labs:
Laboratory Results
07/21/24
03:54
WBC 14.8 H
Hgb 11.0 L
Hct 31.7 L
Plt Count 301
Sodium 144
Potassium 3.7
Chloride 103
Carbon Dioxide 27
BUN 33 H
Creatinine 0.9
Glucose 133 H
Calcium 8.6
Vital Signs:
Vital Signs
Temp Pulse Resp BP Pulse Ox
98.5 F 97 18 129/83 95
07/21/24 07:22 07/21/24 08:31 07/21/24 08:31 07/21/24 06:00 07/21/24 08:31
I&O
07/20/24 07/21/24 07/22/24
06:59 06:59 06:59
Intake Total 480 / 480 480 / 480
Output Total 965 / 965 800 / 800
Balance -485 / -485 -320 / -320
Review of Systems
-
Unable to obtain full review of systems at this time due to: Acuity
Physical Exam
-
General: Respiratory Distress and Cachectic
HEENT: Normocephalic, Atraumatic and Moist Mucous Membranes
Respiratory: Crackles (Bilateral bases); Negative Wheezes, Rales, Rhonchi or Accessory Resp Muscle Use
Cardiac: S1/S2 and Irregular Rhythm; Negative Murmur, Rub, Gallop or Tachycardic
GI: Soft, Nontender and Nondistended
Genito-urinary: Clear Urine and Boss
Musculoskeletal: No Clubbing, No Cyanosis and No Edema
Skin: Warm and Dry; Negative Rash
Neuro: Awake, Alert, Nonfocal/Grossly Intact and Central Nerve's Intact
Psych: Confused
Data Reviewed
-
Diagnostic Radiology: Report Reviewed by me and Discussed with Physician
Labs: Labs Reviewed by me
[2024-07-21] MEDS: SOLU-MEDROL PF 40 MG IV (11:09)
--- NOTE | 2024-07-21 12:09 | CON.PUL ---
Consultation
Consultation Request
Date/Time Consultation Requested: 07/21/2024-9 AM
Date/Time Consultation Performed: 07/21/2024-9:30 AM
Requesting Provider: Hospitalist
Performing Provider: Dr. Sanchez
Reason for Consultation: Shortness of breath
Medical History
-
Chief Complaint: Shortness of breath
History of Present Illness:
81-year-old male with cachexia, hyperlipidemia, diabetes, previous CVA, chronic kidney disease, COPD, former smoker, who presented with rapid atrial fibrillation UTI and suspected CHF-has persistent hypoxemia and pulmonary was consulted 07/21/2024.
He has significant shortness of breath and is now on a nonrebreather and high flow. He offers no complaints of chest pain, but has a nonproductive cough no abdominal pain, nausea, but has cachexia and no lower extremity edema.
Past Medical History
Past Medical History: None (Hyperlipidemia. Hypothyroid. Former smoker. COPD. Diabetes. Chronic renal failure. 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 Gout.
Trigeminal neuralgia.)
Social History
Tobacco: Former Smoker ([id number] quit 30 years ago)
Alcohol: None
Drug: None
Living: With Family
Occupational Exposures: No known asbestos exposure
Environmental Exposures: No known tuberculosis exposure n
Family History
Family History: Reviewed & Not Pertinent
Allergies / Home Medications
Allergies
Allergy/AdvReac Type Severity Reaction Status Date / Time
amoxicillin Allergy Nausea / Verified 07/20/24 18:35
Vomiting
Home Medications
�Medication �Instructions �Recorded �Confirmed �Last Taken �Type
allopurinol 100 mg tablet 100 mg PO DAILY Gout 07/16/24 07/16/24 07/14/24 History
aspirin 81 mg chewable tablet 81 mg PO DAILY Blood Clot 07/16/24 07/16/24 07/14/24 History
Prevention/Tx
atorvastatin 40 mg tablet 40 mg PO QPM high cholesterol 07/16/24 07/16/2407/14/24 History
azelastine 137 mcg (0.1 %) nasal 1 spray intranasal BID LEFT 07/16/24 07/16/24 07/14/24 History
spray nostril only
clopidogrel 75 mg tablet 75 mg PO DAILY Blood Clot 07/16/24 07/16/24 07/14/24 History
Prevention/Tx
famotidine 40 mg tablet 40 mg PO HS Gastrointestinal Issue 07/16/24 07/16/24 07/14/24 History
fludrocortisone 0.1 mg tablet 0.1 mg PO MEALS Blood Pressure 07/16/24 07/16/24 07/14/24 History
fluticasone propionate 50 1 spray intranasal BID LEFT 07/16/24 07/16/24 07/14/24 History
mcg/actuation nasal nostril only
spray,suspension
ipratropium bromide 42 mcg (0.06 1 spray intranasal BID LEFT 07/16/24 07/16/24 07/14/24 History
%) nasal spray nostril only
magnesium 250 mg tablet 250 mg PO BID Supplement 07/16/24 07/16/24 07/14/24 History
midodrine 10 mg tablet 10 mg PO MEALS Blood Pressure 07/16/24 07/16/24 07/14/24 History
sodium chloride 1,000 mg soluble 1,000 mg PO BID Electrolyte 07/16/24 07/16/24 07/14/24 History
tablet Repletion
Review of Systems
-
Unable to Obtain full review of systems at this time due to: Other (Per HPI)
Vitals / Labs / Diagnostic Testing
Vital Signs
Temp Pulse Resp BP Pulse Ox
98.5 F 88 11 97/66 98
07/21/24 07:22 07/21/24 12:00 07/21/24 12:00 07/21/24 10:00 07/21/24 12:00
Lab Data
07/21/24 03:54
07/21/24 03:54
Laboratory Results
07/20/24
21:53
pH 7.54 H
pCO2 31 L
pO2 162 H
HCO3 26.5
O2 Delivery Level
Microbiology
07/16/24 12:27 Urine Urine Culture - Final
Escherichia coli
Diagnostic Testing:
Physical Exam
-
Exam:
Cachectic chronically ill-appearing gentleman in mild distress
HEENT-atraumatic, normocephalic, temporal wasting
Neck-supple, no JVD, no bruit
Heart-regular rate and rhythm-no murmurs, rubs or gallops
Chest with crackles intermediate up and no wheezes
Back-no tenderness
Abdomen-soft, nontender, nondistended, no hepatosplenomegaly
Extremities-no cyanosis, clubbing, trace lower extremity edema
Integument-intact, no rashes, lesions or ecchymosis
Neurology-alert and oriented, nonfocal motor and sensory exam
Assessment
-
81-year-old male with cachexia, hyperlipidemia, diabetes, previous CVA, chronic kidney disease, COPD, former smoker, who presented with rapid atrial fibrillation UTI and suspected CHF-has persistent hypoxemia and pulmonary was consulted 07/21/2024.
Respiratory failure-acute hypoxemic due to CHF/COPD/interstitial lung disease
CHF with preserved EF
New onset atrial fibrillation with rapid ventricular response
UTI
Toxic metabolic encephalopathy
Mechanical fall at home-mildly displaced right acetabular fracture
Leukocytosis
Ijoqqk-fmxvyawnqv-zunoeednsa 11.0
Hyperglycemia
Protein calorie malnutrition
Conditions present prior to admission:
Hyperlipidemia.
Hypothyroid.
Former smoker.
COPD.
Diabetes.
Chronic renal failure.
Left subclavian artery occlusion.
Right vertebral artery occluded occlusion.
Bilateral left subclavian steal syndrome.
Gout.
Trigeminal neuralgia.
Plan
Respiratory decompensation likely multifactorial-CHF/interstitial lung disease and probable underlying COPD
Radiographs reviewed-markedly abnormal including interstitial lung disease/COPD changes-? Chronicity-no old films available
Supplemental oxygen as needed
High flow oxygen if needed
Noninvasive ventilation if needed
Currently a full code-intubated mechanically ventilated if necessary
ABG reviewed-oxygenating and ventilating well
Continue nebulizers-DuoNebs
Aspiration precautions
Incentive spirometry
Mucus clearing devices if needed
Check ESR
Check proBNP
Check echocardiogram
Check CT chest
Eventual PFTs
Empiric steroids
Doubt pulmonary infection-afebrile, mild leukocytosis, however atypical infections could have similar radiographic appearance
Cultures reviewed
Cefdinir continues
Atrial fibrillation rate control
On Eliquis
Cardiology followed patient-signed off 07/18
Monitor blood sugar
Insulin supplementation as needed
Monitor renal function-baseline renal function near serum creatinine 1.0
DVT prophylaxis-on Eliquis
Nutrition
Early mobilization
Outpatient pulm evaluation
Reviewed with nursing and primary team
Diagnostic data:
Chest x-ray 07/19/2024-prominent interstitial markings especially left lung base
Chest x-ray 07/20/2024-severe interstitial disease and severe bilateral emphysema
Chest x-ray 07/21/2024-severe interstitial disease moderate groundglass opacifications appear unchanged, moderate bilateral hyperinflation
Data Reviewed
-
EKG: Report reviewed by me
Radiology: Image personally visualized and interpreted and Report reviewed by me
Labs: Labs reviewed by me
Old Records: Reviewed
Total Time Spent with Patient (in minutes): 55
[2024-07-21] MEDS: CARDIZEM CD PO (12:19)
[2024-07-21] MEDS: ProAmatine PO ×3 (12:20→17:53)
[2024-07-21] MEDS: SODIUM CHLORIDE PO ×2 (12:20→20:49)
[2024-07-21] MEDS: FLORINEF PO ×3 (12:20→17:53)
[2024-07-21] MEDS: ELIQUIS PO ×2 (12:20→20:49)
[2024-07-21] MEDS: ZYLOPRIM PO (12:20)
[2024-07-21] MEDS: OMNICEF PO ×2 (12:20→20:49)
[2024-07-21] MEDS: MAGNESIUM OXIDE PO ×2 (12:20→20:49)
[2024-07-21 14:26] LABS: NT-proBNP 9670 pg/ml
[2024-07-21] MEDS: OFIRMEV 100 IV ×2 (15:05→22:16)
[2024-07-21 15:23] LABS: Erythrocyte Sed Rate 68 mm/hour (0-20)
[2024-07-21 15:29] LABS: COVID-19 Antigen Negative (Negative)
--- NOTE | 2024-07-21 16:00 | PTCARENOTE ---
Pt pulled off pulse ox and O2. Pt siegel and tachypneic, tachycardic. O2 and Pulse ox reapplied with initial sat of 82%. Sats slowly recovered to mid 90's. HR recovered to 80's, pt's color improved. Call received for pt to go to CT- d/w Dr. Sanchez
due to concern for pt's stability. Per Dr. Sanchez, test is not urgent and can be done when pt is more stable.
[2024-07-21] MEDS: LIPITOR PO (17:53)
[2024-07-21] MEDS: DECADRON 4 MG IV (20:52)
[2024-07-21] MEDS: PEPCID PO (22:36)
[2024-07-22] VITALS (20 sets, daily range): BP systolic 92–141; BP diastolic 64–105; PULSE 76–85; O2SAT 88–92; BMI 14.2
[2024-07-22] MEDS: DUONEB INH (03:05)
[2024-07-22] MEDS: OFIRMEV 100 IV ×2 (05:09→12:02)
[2024-07-22] MEDS: DECADRON 4 MG IV ×3 (05:09→21:01)
[2024-07-22 05:24] LABS: % Immature Granulocytes 0.4 % (0-0.5); % Lymphocytes 6.7 % (20.5-51.1); % Monocytes 7.1 % (1.7-9.3); % Neutrophils 85.8 % (42.2-75.2); Absolute Lymphocytes 0.4 10^3/uL (1.2-3.4); Absolute Monocytes 0.4 10^3/uL (0.1-0.6); Absolute Neutrophils 4.5 10^3/uL (1.4-6.5); Hematocrit 32.3 % (39.0-52.0); Hemoglobin 10.9 g/dL (13.0-18.0); Mean Corp Hgb Conc. 33.7 g/dL (33.0-37.0); Mean Corpuscular Hgb 32.1 pg (27.0-31.0); Nucleated Red Blood Cells % 0 % (-); Platelet Count 272 10^3/uL (130-400); Red Cell Dist. Width 14.3 % (11.5-14.5); White Blood Cell Count 5.2 10^3/uL (4.8-10.8)
[2024-07-22 05:56] LABS: Blood Urea Nitrogen 42 mg/dl (9-20); Calcium 8.8 mg/dl (8.4-10.2); Carbon Dioxide 33 mmol/L (22-30); Chloride 103 mmol/L (98-107); Estimated Creatinine Clearance 39 ml/min; Glucose 182 mg/dl (70-99); Magnesium 2.2 mg/dl (1.6-2.3); Potassium 3.6 mmol/L (3.5-5.1); Sodium 146 mmol/L (135-145); eGFR > 60.00
[2024-07-22] MEDS: DUONEB 3 ML INH (07:50)
--- NOTE | 2024-07-22 09:32 | W.PN.HOSP.TC ---
Today's Communication/Plan
-
Continue IV steroid
Wean oxygen for SpO2 >88%
CT thorax
TTE tomorrow
Assessment / Plan
Assessment / Plan
#Acute hypoxemic respiratory failure
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
#Leukocytosis
-Unclear cause for his worsening pulmonary status, differentials include ILD versus pulmonary edema
-Also has been altered fairly consistently while here, question if he is aspirating as well
-X-rays here show severe emphysema, signs of ILD versus IPF; minimal known history concerning these
-Initially was on room air though has required up titration to nonrebreather today
-Chest x-ray this morning more concerning for interstitial inflammation and pulmonary edema
-Currently on IV Lasix and started on IV steroid; also on cefdinir for UTI
-Pulmonology following
Plan
-C/w IV Lasix 40 mg PRN per volume status
-C/W IV decadron 4mg Q8
-C/W PRN DuoNebs
-Wean oxygen for SpO2 goal >88%
-F/U CT thorax and TTE
-Trend CBC and temperature curve
#Acute metabolic encephalopathy
-Suspect this is multifactorial with delirium, opiate effect, component of UTI
-Per his son he is AOx3 at baseline, has been lucid at times today though volatile
-Suspect this will improve with correction of the issues as below
-Starting to improve
#New onset AF with RVR
-Nonvalvular; [id number] 4; likely provoked from stress of fall, possible prerenal state
-Status post diltiazem drip; now on long-acting diltiazem and reduced dose Eliquis
-Heart rate currently well-controlled
-Consider transition to beta-brii if TTE with reduced EF
#UTI
-Urinalysis from the ED with pyuria, many bacteria, positive leukocyte esterase
-Urine culture returned positive for E. coli with resistance to ciprofloxacin and tetracyclines
-Transition from ceftriaxone to cefdinir to complete 7-day course
-Trend CBC and temperature curve
#Mechanical fall at home
#Mildly displaced right acetabular fracture
-Had a fall at home onto his right hip, imaging without signs of fracture
-Was started on morphine sulfate in the ED, adequate response
-CT showed mildly displaced acetabular fracture, nondisplaced pubic ramus fracture
-Analgesia: Tylenol/morphine 1 mg IV/morphine 2 mg IV
-Currently weightbearing as tolerated with walker
-PT/OT consult pending
#ASCVD
#Left subclavian steal
#Bilateral carotid stenosis
#Dyslipidemia
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
-Home medications include DAPT with aspirin and Plavix, high intensity statin
-No signs or symptoms of new atherosclerotic occlusions
#T2DM
-No recent A1c on record, not currently on home medications, no history of microvascular disease
-Will start ISS with Accu-Cheks, blood glucose goal 150�200
#Stage IIIa CKD
-Baseline renal function with creatinine near 1.0, creatinine clearance mid 40s
-No chronic acidemia, anemia, bone mineral disease associated with CKD
-Renal function currently at baseline
#Orthostatic hypotension
-Seems to have severe disease
-Home medications include midodrine, fludrocortisone, NaCl tabs twice daily
-Will monitor for orthostatic symptoms while here
#Hypothyroidism
-Unclear etiology, does not seem to be on any levothyroxine replacement at home
-Per previous documentation
#Gout
-Home meds include allopurinol 100 mg daily
-No signs of acute flare at this time
DVT prophylaxis: Heparin drip
Diet: Regular
CODE STATUS: Full code
Anticipated Discharge: 24 - 48 hours
Subjective/Interval History
-
Date of Service: July 22, 2024
Seen and examined bedside. No acute events reported overnight. AFVSS on 8 L oxygen. O2 requirements downtrending.
CT thorax today pending for further assessment of presumed ILD/possible IPF. Seems to be responding to steroid, lower suspicion for IPF
ROS limited by his mental status
Objective Data
-
Labs:
Laboratory Results
07/22/24
05:07
WBC 5.2
Hgb 10.9 L
Hct 32.3 L
Plt Count 272
Sodium 146 H
Potassium 3.6
Chloride 103
Carbon Dioxide 33 H
BUN 42 H
Creatinine 0.9
Glucose 182 H
Calcium 8.8
Vital Signs:
Vital Signs
Temp Pulse Resp BP Pulse Ox
97.2 F 81 25 120/80 98
07/22/24 08:00 07/22/24 08:00 07/22/24 08:00 07/22/24 08:00 07/22/24 07:52
I&O
07/21/24 07/22/24 07/23/24
06:59 06:59 06:59
Intake Total 480 / 480
Output Total 800 / 800 1750 / 1750
Balance -320 / -320 -1750 / -1750
Review of Systems
-
Unable to obtain full review of systems at this time due to: Dementia
Physical Exam
-
General: No Apparent Distress, Comfortable and Cachectic
HEENT: Normocephalic, Atraumatic, Moist Mucous Membranes and Oxygen
Respiratory: Crackles (Bibasilar) and Non Labored Respirations; Negative Wheezes, Rales or Accessory Resp Muscle Use
Cardiac: S1/S2 and Irregular Rhythm; Negative Murmur, Rub, JVD, Gallop or Tachycardic
GI: Soft, Nontender, Nondistended and Normal Bowel Sounds
Musculoskeletal: No Clubbing, No Cyanosis and No Edema
Skin: Warm, Dry and Normal Turgor; Negative Rash
Neuro: Awake, Alert, Oriented and Nonfocal/Grossly Intact
Psych: Calm
Data Reviewed
-
Labs: Labs Reviewed by me
[2024-07-22] MEDS: OMNICEF 300 MG PO ×2 (10:16→20:58)
[2024-07-22] MEDS: ELIQUIS 2.5 MG PO ×2 (10:16→20:54)
[2024-07-22] MEDS: FLORINEF 0.1 MG PO ×2 (10:17→14:20)
[2024-07-22] MEDS: ProAmatine 10 MG PO ×2 (10:17→14:20)
--- NOTE | 2024-07-22 11:00 | PTOTSP ---
Speech Therapy Evaluation:
Pt demonstrating s/sx of oropharyngeal dysphagia. Pt with delayed cough x3 with thin liquids via teaspoon and subsequent drop in O2 (90-95%). No overt s/sx of aspiration observed with ice chips or puree, however pt demonstrates impaired oral stage.
Pt remains at an increased risk for aspiration due to current respiratory status, impulsiveness, dysarthria, and fluctuating levels of alertness.
Recommend:
1. NPO
2. Medications via non-oral route, however can crush medications in puree if indicated
3. Initiate AHRP; ice chips; direct supervision
4. Oral care 3/x day
5. Consider VSE pending respiratory status
6. Continued ST to determine ability to initiate PO diet.
[2024-07-22] MEDS: ZYLOPRIM PO (12:03)
[2024-07-22] MEDS: CARDIZEM CD PO (12:04)
[2024-07-22] MEDS: SODIUM CHLORIDE PO (12:04)
[2024-07-22] MEDS: DULCOLAX 10 MG RECTAL (12:04)
[2024-07-22] MEDS: MAGNESIUM OXIDE PO (12:04)
--- NOTE | 2024-07-22 12:18 | W.PN.PUL.V3 ---
Today's Communication / Plan
-
diuresis.
Wean oxygen.
No change in steroids.
Assessment
-
81-year-old male with cachexia, hyperlipidemia, diabetes, previous CVA, chronic kidney disease, COPD, former smoker, who presented with rapid atrial fibrillation UTI and suspected CHF-has persistent hypoxemia and pulmonary was consulted 07/21/2024.
Respiratory failure-acute hypoxemic due to CHF/COPD/interstitial lung disease
CHF with preserved EF
New onset atrial fibrillation with rapid ventricular response
UTI
Toxic metabolic encephalopathy
Mechanical fall at home-mildly displaced right acetabular fracture
Leukocytosis
Mhjkut-gujiqikpgt-bysuvbvfjr 11.0
Hyperglycemia
Protein calorie malnutrition
Conditions present prior to admission:
Hyperlipidemia.
Hypothyroid.
Former smoker.
COPD.
Diabetes.
Chronic renal failure.
Left subclavian artery occlusion.
Right vertebral artery occluded occlusion.
Bilateral left subclavian steal syndrome.
Gout.
Trigeminal neuralgia.
Plan
Respiratory decompensation likely multifactorial-CHF/interstitial lung disease and probable underlying COPD
Radiographs reviewed-markedly abnormal including interstitial lung disease/COPD changes-? Chronicity-no old films available
Supplemental oxygen as needed
High flow oxygen if needed
Noninvasive ventilation if needed
Currently a full code-intubated mechanically ventilated if necessary-Has not needed
ABG reviewed-oxygenating and ventilating well
Continue nebulizers-DuoNebs
Aspiration precautions
Incentive spirometry
Mucus clearing devices if needed
Check ESR-68
Check [id number]
Check echocardiogram-pending
CT chest 07/22/24 personally reviewed-extensive centrilobular emphysema as well as interstitial pulmonary fibrosis and 4 mm right lower lobe nodule
Eventual PFTs
Empiric steroids initiated
Doubt pulmonary infection-afebrile, mild leukocytosis, however atypical infections could have similar radiographic appearance
Cultures reviewed
Cefdinir continues
Atrial fibrillation rate control
On Eliquis
Cardiology followed patient-signed off 07/18
Monitor blood sugar
Insulin supplementation as needed
Monitor renal function-baseline renal function near serum creatinine 1.0
DVT prophylaxis-on Eliquis
Nutrition
Early mobilization
Outpatient pulm evaluation-will need PFTs,. 6 minute walk test, follow-up CT chest for pulmonary nodule, etc.
Reviewed with nursing and primary team
Diagnostic data:
Chest x-ray 07/19/2024-prominent interstitial markings especially left lung base
Chest x-ray 07/20/2024-severe interstitial disease and severe bilateral emphysema
Chest x-ray 07/21/2024-severe interstitial disease moderate groundglass opacifications appear unchanged, moderate bilateral hyperinflation
Subjective Data
-
Date of Service:
Date of Service: July 22, 2024
Objective Data
Data Reviewed
Vital Signs / I&O:
Vital Signs
Temp Pulse Resp BP Pulse Ox
97.2 F 81 25 120/80 98
07/22/24 08:00 07/22/24 08:00 07/22/24 08:00 07/22/24 08:00 07/22/24 07:52
Intake and Output
07/21/24 07/22/24 07/23/24
06:59 06:59 06:59
Intake Total 480 / 480
Output Total 800 / 800 1750 / 1750
Balance -320 / -320 -1750 / -1750
SaO2: 98
Nasal Cannula flow liters per minute: 6
Labs/Micro/Reports
Lab Data
07/22/24 05:07
07/22/24 05:07
Microbiology
07/21/24 14:51 Nasal Swab Influenza Types A & B (SHY) - Final
Negative for Influenza A & B, NAAT
Negative results must be combined with clinical observations
and patient history.
Nucleic Acid Amplification test (NAAT)performed on the
[employer] platform.
--- NOTE | 2024-07-22 17:02 | PTCARENOTE ---
pt weaned from 10 to 7 liters today; pox maintained 93-97%, desatting to 50-60's when patient removes oxygen, then requiring non-rebreather mask at 100% FiO2 to recover. NPO except meds crushed in applesauce today, with ice chips once per hour with
nursing supervision. Attempted water this morning; pt unable to drink from a cup without a straw at baseline after previous facial surgeries. Coughing with straw after swallowing.
oral cardizem switched to IV route; pt sinus rhythm with frequent PACs and some dropped beats.
Dulcolax suppository given for complaints of constipation without results.
Assisted to chair with PT/OT; pt tolerated x 3 hours.
Med-sitter monitoring. Call domínguez in reach. Continuing to monitor
[2024-07-22] MEDS: CARDIZEM 5 MG IV ×2 (17:09→23:33)
[2024-07-22] MEDS: LIPITOR PO (17:11)
[2024-07-22] MEDS: ProAmatine PO ×2 (18:06→18:24)
[2024-07-22] MEDS: FLORINEF PO ×2 (18:06→18:24)
[2024-07-22] MEDS: SODIUM CHLORIDE 1 GRAM PO (20:59)
[2024-07-22] MEDS: MAGNESIUM OXIDE 250 MG PO (21:00)
[2024-07-22] MEDS: PEPCID 20 MG PO (21:05)
[2024-07-23] VITALS (17 sets, daily range): BP systolic 84–130; BP diastolic 45–105; PULSE 101–103; O2SAT 94–97
--- NOTE | 2024-07-23 02:23 | PTCARENOTE ---
Pt attempting to climb out of bed. Pt stating he has to use bathroom to have bowel movement. Pt assisted to BSC x2 RN. Pt stated his head hurt, reported feeling dizzy and lightheaded. BP obtained, SBP in the 80's. Pt able to have small bm. Siri care
provided and assisted back to bed. Once laying down pt stated his head no longer hurt. Repeat BP 102/89. Pt keeps asking for food and is stating he is starving. Ice chips provided. Pt instructed of Video swallow eval in am. River remains in
place. Will continue to monitor.
[2024-07-23] MEDS: TYLENOL 650 MG PO (02:33)
[2024-07-23] MEDS: DECADRON 4 MG IV ×2 (04:34→13:04)
--- NOTE | 2024-07-23 05:24 | PTCARENOTE ---
Pt awake most of the night, did not sleep. Pt kept talking about being hungry and wanting to eat scrambled eggs. No other changes in assessment noted at this time. Will continue to monitor.
[2024-07-23 05:38] LABS: % Immature Granulocytes 0.5 % (0-0.5); % Lymphocytes 4.6 % (20.5-51.1); % Monocytes 4.4 % (1.7-9.3); % Neutrophils 90.5 % (42.2-75.2); Absolute Lymphocytes 0.4 10^3/uL (1.2-3.4); Absolute Monocytes 0.4 10^3/uL (0.1-0.6); Absolute Neutrophils 7.3 10^3/uL (1.4-6.5); Hematocrit 33.1 % (39.0-52.0); Hemoglobin 11.4 g/dL (13.0-18.0); Mean Corp Hgb Conc. 34.4 g/dL (33.0-37.0); Mean Corpuscular Volume 98.8 fL (80.0-94.0); Mean Platelet Volume 10.4 fL (7.4-10.4); Nucleated Red Blood Cells % 0 % (-); Platelet Count 293 10^3/uL (130-400); Red Blood Cell Count 3.35 10^6/uL (4.70-6.10); Red Cell Dist. Width 14.3 % (11.5-14.5); White Blood Cell Count 8.1 10^3/uL (4.8-10.8)
[2024-07-23 06:09] LABS: Blood Urea Nitrogen 51 mg/dl (9-20); Carbon Dioxide 31 mmol/L (22-30); Chloride 105 mmol/L (98-107); Estimated Creatinine Clearance 36 ml/min; Glucose 178 mg/dl (70-99); Potassium 3.5 mmol/L (3.5-5.1); Sodium 149 mmol/L (135-145); eGFR > 60.00
--- NOTE | 2024-07-23 08:19 | W.PN.HOSP.TC ---
Today's Communication/Plan
-
Comfort Feeds (but not Comfort Care right now), patient and patient's son understand the risks of patient taking items by PO while having significant oropharyngeal dysphagia
If patient aspirates more and his respiratory status declines, patient and his family may change to comfort care
IV Heparin Drip in lieu of Eliquis for now as PO intake unreliable
Cardizem Drip for rate control
Hydrocortisone in lieu of patient's Florinef for now
D5W for hypernatremia
No antibiotics as per pulmonary
Assessment / Plan
Assessment / Plan
Physical Exam
General: No Apparent Distress, Comfortable and Cachectic
HEENT: Normocephalic, Atraumatic, Moist Mucous Membranes and Oxygen (6 L midflow nasal cannula)
Respiratory: Crackles (Bibasilar)
Cardiac: S1/S2 and Irregular Rhythm
GI: Soft, Nontender, Nondistended and Normal Bowel Sounds
Musculoskeletal: No Cyanosis and No Edema
Skin: Warm, Dry and Normal Turgor
Neuro: Awake, Alert, Oriented and Nonfocal/Grossly Intact
Psych: Calm

Echocardiogram (as per operations section manager's report from 07/23/24)
CONCLUSIONS
Normal biventricular size and systolic function without regional wall motion
abnormality. Estimated LVEF 50-55%.
No significant valve disease.
No prior study available for comparison.

Assessment/Plan
#Acute hypoxemic respiratory failure
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
#Leukocytosis
-Unclear cause for his worsening pulmonary status, differentials include ILD versus pulmonary edema
-Also has been altered fairly consistently while here, question if he is aspirating as well
-X-rays here show severe emphysema, signs of ILD versus IPF; minimal known history concerning these
-Initially was on room air though has required up titration to nonrebreather later during hospitalization, and now on midflow nasal cannula
-Chest x-ray suggested interstitial inflammation and pulmonary edema
-Currently on IV Lasix and started on IV steroid; also on antibiotics for UTI
-Pulmonology following
Plan
-C/w IV Lasix 40 mg PRN per volume status
-C/W IV decadron 4mg Q8
-C/W PRN DuoNebs
-Wean oxygen for SpO2 goal >88%
-F/U CT thorax and TTE
-Trend CBC and temperature curve
#Acute metabolic encephalopathy
-Suspect this is multifactorial with delirium, opiate effect, component of UTI
-Per his son he is AOx3 at baseline, has been lucid at times today though volatile
-Suspect this will improve with correction of the issues as below
-Starting to improve
#Severe Oropharyngeal Dysphagia
-Consulted palliative care physician Dr. Bonnie Gallo -- and code status was changed to DNR/DNI - other goals remain treatment oriented at this time, son would like to explore hydration/nutrition options as an outpatient. Patient and his son not
interested in hospice at this time.
-Per speech Marilyn Marquez as of 07/23/24, VSE completed: aspiration of all including significant amount of barium pudding. NPO and GOC discussion were recommended. When speech therapist discussed with patient the
results, patient said 'I know. I choke all the time. Can I have a doughnut and coffee?'
-Discussed case on 07/23/24 with pulmonary: Dr. Rebollar met with the patient and his son, patient wanted a bowl of cream of wheat from home, son was told he could make it and bring it from home, patient and son
understand the risks of PO intake at this time, and if patient develops respiratory distress, then will likely transition to comfort
-Therefore, changed patient's diet to Pureed
-Consulted GI -- no PEG tube or Dobhoff tube at this time since with patient's delirium and agitation, he will pull it out
-Spoke with clinical pharmacist Heather Fofana (in case patient is strict NPO): recommended (if patient is strict NPO) to hold allopurinol, mag oxide, midodrine, and recommended switching to: heparin drip Cardiac protocol, IV famotidine, consider
changing fludrocortisone to hydrocortisone IV 50 mg daily as confirmed with on-call inspector optical instrument. I spoke with on-call inspector optical instrument who recommended starting IV Hydrocortisone 50 mg daily in lieu of patient's outpatient Fludrocortisone
medication, okay to keep intravenous Dexamethasone as is for now -- nurse will try giving him his Allopurinol, Lipitor, Pepcid, Magnesium Oxide, Midodrine if he can tolerate those medications
-Aspiration precautions
#Agitation
-Per nurse on 07/23/24, patient pulling out tubes, yelling
-QTc 482 on July 23, 2024
-Consulted psychiatry, appreciate their evaluation and recommendations: could try intravenous PRN Ativan; Melatonin could help with sleep and overall mental status when able to be given; Zyprexa 2.5 mg IM could be used for
severe agitation/aggressive behavior
#Hypernatremia
-D5W @ 75 cc/hr for now -- monitor respiratory status closely while patient is getting IV fluids
-Hold patient's home salt tablets
-Appreciate nephrology
#New-Onset Atrial Fibrillation with Rapid Ventricular Response
-Nonvalvular; [id number] 4; likely provoked from stress of fall, possible prerenal state
-Status post diltiazem drip; was transitioned to PO medications: long-acting diltiazem and reduced-dose Eliquis, but on 07/23/24, transitioned to Heparin Drip and Cardizem Drip due to unsafe/unreliable swallowing as
per speech video swallow study
-Re-consulted cardiology on 07/23/24 as patient cannot take PO medications -- switched to IV as above
#UTI
-Urinalysis from the ED with pyuria, many bacteria, positive leukocyte esterase
-Urine culture returned positive for E. coli with resistance to ciprofloxacin and tetracyclines
-Transition from ceftriaxone to cefdinir to complete 7-day course (was getting Cefdinir 300 mg BID since 07/19/24 morning), transitioned back to Ceftriaxone on 07/23/24 due to failing speech/swallow evaluation
-Stop antibiotics as per pulmonary recommendations who discussed further goals of care with patient's family
#Mechanical fall at home
#Mildly displaced right acetabular fracture
-Had a fall at home onto his right hip, imaging without signs of fracture
-Was started on morphine sulfate in the ED, adequate response
-CT showed mildly displaced acetabular fracture, nondisplaced pubic ramus fracture
-Continue pain control as needed
-Currently weightbearing as tolerated with walker
-PT/OT consult pending
#ASCVD
#Left subclavian steal
#Bilateral carotid stenosis
#Dyslipidemia
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
-Home medications include DAPT with aspirin and Plavix (but now on Heparin Drip), high intensity statin
-No signs or symptoms of new atherosclerotic occlusions
-Discussed with vascular surgery (via [facility] on 07/23/24) to see whether patient should be on at least one antiplatelet medication: okay to resume Aspirin only along with systemic anticoagulation
#Type 2 Diabetes Mellitus
-No recent A1c on record, not currently on home medications, no history of microvascular disease
-Continue ISS with Accu-Cheks, blood glucose goal 150�200
#Stage IIIa CKD
-Baseline renal function with creatinine near 1.0, creatinine clearance mid 40s
-No chronic acidemia, anemia, bone mineral disease associated with CKD
-Renal function currently at baseline
#Orthostatic hypotension
-Seems to have severe disease
-Home medications include midodrine, fludrocortisone, NaCl tabs twice daily -- holding NaCl given hypernatremia at this time. Fludrocortisone held due to unsafe swallowing.
-Continue monitoring for orthostatic symptoms while here
#Hypothyroidism
-Unclear etiology, does not seem to be on any levothyroxine replacement at home
-Per previous documentation
#Gout
-Home meds include allopurinol 100 mg daily
-No signs of acute flare at this time
DVT prophylaxis: Heparin drip
Diet: Okay for comfort pureed diet after pulmonary spoke to patient on 07/23/24.
CODE STATUS: DNR and also DO NOT INTUBATE (DR. BONNIE GALLO OF PALLIATIVE CARE TEAM CONFIRMED THIS WITH PATIENT'S SON -- patient delirious/confused). Appreciate Dr. Gallo's help.
On 07/23/24, I spoke with both patient and his son Santos inside patient's room, they mentioned they would like everything done including breathing machine/intubation if needed and Full Code. However, Dr. Bonnie Gallo of palliative care spoke with
patient and his son and they mentioned that patient is to be DNR starting now, and no intubation or mechanical ventilation. Code Status changed to DNR and no intubation/no mechanical ventilation. Appreciate Dr. Gallo' help. Dr. Rebollar also spoke
with patient and his son, patient really wants food, patient and his son understand the risks of aspiration, and patient and his son will likely transition patient to comfort care if patient deteriorates while on comfort feeds.
Total time spent today on caring for the patient including chart review, seeing and examining the patient, speaking with the patient's son, consulting palliative care, discussing case with pulmonary, gastroenterology and vascular surgery, and
documentation, was 110 minutes.
Anticipated Discharge: > 48 hours
Subjective/Interval History
-
Date of Service: July 23, 2024
Patient was seen and examined. He denied any chest pain or shortness of breath.
Objective Data
-
Labs:
Laboratory Results
07/23/24
04:44
WBC 8.1
Hgb 11.4 L
Hct 33.1 L
Plt Count 293
Sodium 149 H
Potassium 3.5
Chloride 105
Carbon Dioxide 31 H
BUN 51 H
Creatinine 0.9
Glucose 178 H
Calcium 9.0
Vital Signs:
Vital Signs
Temp Pulse Resp BP Pulse Ox
97.6 F 88 17 112/87 96
07/23/24 03:16 07/23/24 04:00 07/23/24 04:00 07/23/24 04:00 07/23/24 04:00
I&O
07/22/24 07/23/24 07/24/24
06:59 06:59 06:59
Intake Total 100 / 100
Output Total 1750 / 1750 1000 / 1000
Balance -1750 / -1750 -900 / -900
--- NOTE | 2024-07-23 09:30 | PTOTSP ---
Speech Language Pathology
VIDEOFLUOROSCOPIC SWALLOWING EXAMINATION (VSE) completed. Overall, pt with mod oral and severe pharyngeal dysphagia. Aspiration of almost all textures with significant pharyngeal residue. When discussed results/recommendations with pt, he stated
'I know. I choke all of the time at home.' Therefore, suspect chronic dysphagia, potentially exacerbated by acute medical issues. Prognosis for improvement is poor. Of note, pt asked multiple times for coffee and a doughnut.
Recommend:
(1) NPO
(2) GOC discussion
(3) Oral care 4x/day with suctioning as needed
(4) Continue ice chips sparingly post oral care given supervision per Aspiration Risk Hydration Protocol (ARHP)
(5) ENROLLMENT MANAGER to continue to follow
[2024-07-23] MEDS: ZYLOPRIM PO (10:37)
[2024-07-23] MEDS: MAGNESIUM OXIDE PO ×2 (10:37→20:32)
[2024-07-23] MEDS: ELIQUIS PO (10:37)
[2024-07-23] MEDS: FLORINEF PO (10:37)
[2024-07-23] MEDS: SODIUM CHLORIDE PO (10:37)
[2024-07-23] MEDS: ProAmatine PO ×3 (10:37→16:17)
[2024-07-23] MEDS: OMNICEF PO (10:38)
[2024-07-23] MEDS: CARDIZEM 5 MG IV (10:51)
--- NOTE | 2024-07-23 11:47 | W.PN.CD ---
Addendum entered and electronically signed by Raheel Clifton MD (Ellie) 07/23/24 15:32:
I saw and examined the patient.
The ADVANCED PRACTICE REGISTERED NURSE's note was reviewed and I agree with the note.
Comment: 89M with orthostatic hypotension, prediabetes, chronic kidney disease, dyslipidemia, gout, prior TIA/CVA and PAD who presented to the emergency department with a chief complaint of a mechanical fall. Cardiology is consulted for atrial
fibrillation with rapid ventricular response. Patient is now n.p.o. due to aspiration. We will transition his atrial fibrillation therapy to intravenous. Continue heparin drip and diltiazem drip. Agree with hospice consult.
Original Note:
Today's Communication / Plan
-
Called back to see patient by primary service.
He is now n.p.o. due to aspiration. Medications transitioned to intravenous route.
Impression / Plan
-
BACKGROUND: 89M with orthostatic hypotension, prediabetes, chronic kidney disease, dyslipidemia, gout, prior TIA/CVA and PAD who presented to the emergency department with a chief complaint of a mechanical fall.
PLAN:
Dysphagia
-NPO per speech
-Transition to IV medications in this setting
Atrial fibrillation with rapid ventricular response, new diagnosis
-Long-acting diltiazem 120 mg daily transitioned to every 6 hours IVP by primary service
-Oral Anticoagulation: None prior to arrival, apixaban 2.5 mg twice daily (age 89, weight <60 kg) on hold -> heparin gtt
-No signs or symptoms of bleeding. Hemoglobin stable today
-[id number]: Score at least 4 (age 75 or more, prior Stroke/TIA, Vascular disease)
-He is not sure if he has an outpatient inside sales supervisor. Will ask primary team to discuss with family for follow-up purposes.
UTI, per primary
Mechanical fall
Acute fracture of the right acetabulum
-Per primary service
Respiratory failure, acute hypoxemic, in the setting of COPD/ILD, on intravenous steroids per pulmonary
Prior probable TIA
-Previously on ASA and clopidogrel, now apixaban as above
Dyslipidemia
-Lipid panel 05/2023: TC 221, LDL 141, HDL 45, TG 201
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
Prediabetes, outpatient A1c 6.0%
Chronic hypotension, on fludrocortisone
Underweight, protein/caloric malnutrition, BMI 14.2
SUBJECTIVE:
Endorses fatigue. No chest pain no shortness of breath.
Physical Exam
Vital Signs/Labs
Vital Signs
Temp Pulse Resp BP Pulse Ox
97.3 F 106 10 121/57 95
07/23/24 07:40 07/23/24 10:51 07/23/24 08:00 07/23/24 10:51 07/23/24 08:51
07/22/24 07/23/24 07/24/24
06:59 06:59 06:59
Actual Weight 44.8 kg
07/23/24 04:44
APTT 37.6 Sec (23.4-35.0) H 07/18/24 11:32
Magnesium 2.2 mg/dl (1.6-2.3) 07/22/24 05:07
07/21/24 07/21/24
03:54 12:31
[id number] Pept 9670 Cancelled
Physical Exam
Constitutional: No acute distress, Comfortable and Other (Cachectic)
EENT: Anicteric and Moist mucous membranes
Cardiovascular: Rhythm & rate is regular and Pedal edema is absent
Respiratory: Respiratory effort normal and Crackles Present
GI: Soft, Distention absent, Flat, Non tender and Normal bowel sounds
Neuro/Psych: AO x 3
Other: Skin (Warm and dry)
Data Reviewed
-
Date of Service: July 23, 2024
[2024-07-23] MEDS: D5W 1000 IV (11:56)
--- NOTE | 2024-07-23 12:11 | CS.PSYCHR ---
Consult Summary - Psychiatry
-
Pt is an 89 yo male who presented to the ED after a fall on the evening of 07/15/2024. Family reported the patient was confused and trying to put on his pants when he fell. Labs revealed hemoglobin 12.8, Urinalysis with 2+ leukocyte esterase,
30-40 WBC per hpf, many bacteria. CT head without contrast showed no acute intracranial abnormalities, showed diffuse cortical atrophy with nonspecific white matter changes. Pt noted to have confusion in the ED. Pt diagnosed with Acute respiratory
failure, severe emphysema with interstitial fibrosis, Acute TME, UTI. Pt was started on IV Decadron TID 07/21 at . Psychiatry asked to assess due to agitation; pt noted to be awake all night and c/o being hungry, trying to leave. Pt is npo due
to swallowing difficulty. On interview, pt is alert, appears oriented, calm, answering questions, c/o various pains, c/o not sleeping and wanting to eat and drink, concerned he has lost weight. QTc 487 07/16, 482 07/23.
PMH: recent admission to for dehydration; hx of CVA, Hypercholesterolemia, Hypothyroidism, NIDDM, Stage III CKD, ASCVD, gout, trigeminal neuralgia
Psych Hx: denied
SH: lives with his son in a private home, former smoker
MSE: very thin/cachectic, alert, making eye contact, answering questions, although speech articulation is somewhat impaired. Affect is appropriate, mood stable/mildly dysphoric. No signs of psychosis, no agitation at present. Insight appears fair
Imp: TME, improving, although with intermittent agitation, from multiple factors, including IV steroid
Rec: Could try IV Ativan prn. Options are very limited while npo. Melatonin could help with sleep and overall mental status when able to be given
Zyprexa 2.5 mg IM could be used for severe agitation/aggressive behavior. Will follow
[2024-07-23] MEDS: SOLU-CORTEF 50 MG IV (13:03)
[2024-07-23] MEDS: STERILE WATER FOR INJECTION 10 ML IV (13:05)
[2024-07-23] MEDS: ROCEPHIN 1000 MG IV (13:06)
[2024-07-23] MEDS: THIAMINE INJECTION 200 MG IV (13:12)
[2024-07-23] MEDS: HEPARIN 25000 UNITS/250 ML IV (13:17)
[2024-07-23 13:19] LABS: APTT 33.8 Sec (23.4-35.0)
[2024-07-23] MEDS: CARDIZEM 125 IV (14:14)
[2024-07-23 14:22] LABS: Blood Urea Nitrogen 53 mg/dl (9-20); Calcium 9.3 mg/dl (8.4-10.2); Carbon Dioxide 31 mmol/L (22-30); Chloride 105 mmol/L (98-107); Estimated Creatinine Clearance 36 ml/min; Glucose 190 mg/dl (70-99); Potassium 3.8 mmol/L (3.5-5.1); Sodium 150 mmol/L (135-145); eGFR > 60.00
--- NOTE | 2024-07-23 14:33 | W.CON.NEPH ---
Consultation
-
Date/Time Consultation Requested: 07/23/24 0825
Date/Time Consultation Performed: 07/23/24 1500
Requesting Provider: Shukri Tyson
Performing Provider: Shahrzad Lux
Reason for Consultation: Hypernatremia
Medical History
-
Chief Complaint: Fall at home
History of Present Illness:
89-year-old male with ASCVD (left subclavian artery occlusion, right vertebral artery occlusion; C/B left subclavian steal syndrome) on ASA, plavix, T2DM, HLD on statin, CKD baseline cr 1, hypothyroidism, gout on allopurinol, trigeminal neuralgia
follows at [facility],orthostatic hypotension on Florinef, salt tab and midodrine, former smoker that presented to the ED on 07/16 after a fall on the evening of 07/15/2024. No LOC. Has been having right hip pain and leg pain since that time. Also with
mild difficulties in speaking. Was recently in ER for dehydration 07/14. He noted to have new Afib with RVR. Received IVF and CCB. he also noted with acute resp failure on O2, felt to be multifactorial COPD, ILD and CHF. he received 2 doses of
lasix on 07/20 and 07/21. He is on steroids and nebs per pulm. He also note dto have aspiration risk and underwent swallow eval today, due to NPO meds changed to IV. On admit his sodium was 143 now increased upto 150 hence nephrology consulted,
started on D5W with holding lasix. Family met palliative care today and changed to DNR. Wt decreased from 48kg to 44.8kg today. He is confused and currently treated for UTI too. NO fever, BP low last night but better this am.
During visit pt is shouting and wants to eat, becoming irritable and combative.
Past Medical History
ASCVD (left subclavian artery occlusion, right vertebral artery occlusion; C/B left subclavian steal syndrome)
T2DM
HLD
Stage IIIa CKD
gout
trigeminal neuralgia
Social History
Tobacco: Former Smoker
Alcohol: None
Drug: None
Family History
Family History: Not Pertinent
Allergies / Home Medications
Allergy/AdvReac Type Severity Reaction Status Date / Time
amoxicillin Allergy Nausea / Verified 07/20/24 18:35
Vomiting
�Medication �Instructions �Recorded �Confirmed �Type
allopurinol 100 mg tablet 100 mg PO DAILY Gout 07/16/24 07/16/24 History
aspirin 81 mg chewable tablet 81 mg PO DAILY Blood Clot 07/16/24 07/16/24 History
Prevention/Tx
atorvastatin 40 mg tablet 40 mg PO QPM high cholesterol 07/16/24 07/16/24 History
azelastine 137 mcg (0.1 %) nasal 1 spray intranasal BID LEFT 07/16/24 07/16/24 History
spray nostril only
clopidogrel 75 mg tablet 75 mg PO DAILY Blood Clot 07/16/24 07/16/24 History
Prevention/Tx
famotidine 40 mg tablet 40 mg PO HS Gastrointestinal Issue 07/16/24 07/16/24 History
fludrocortisone 0.1 mg tablet 0.1 mg PO MEALS Blood Pressure 07/16/24 07/16/24 History
fluticasone propionate 50 1 spray intranasal BID LEFT 07/16/24 07/16/24 History
mcg/actuation nasal nostril only
spray,suspension
ipratropium bromide 42 mcg (0.06 1 spray intranasal BID LEFT 07/16/24 07/16/24 History
%) nasal spray nostril only
magnesium 250 mg tablet 250 mg PO BID Supplement 07/16/24 07/16/24 History
midodrine 10 mg tablet 10 mg PO MEALS Blood Pressure 07/16/24 07/16/24 History
sodium chloride 1,000 mg soluble 1,000 mg PO BID Electrolyte 07/16/24 07/16/24 History
tablet Repletion
Review of Systems
-
unable to obtain pt confused
Physical Exam
Vital Signs
Vital Signs
Temp Pulse Resp BP Pulse Ox
97.3 F 106 10 121/57 95
07/23/24 07:40 07/23/24 10:51 07/23/24 08:00 07/23/24 10:51 07/23/24 08:51
Lab Results
WBC 8.1 10^3/uL (4.8-10.8) 07/23/24 04:44
RBC 3.35 10^6/uL (4.70-6.10) L 07/23/24 04:44
Hgb 11.4 g/dL (13.0-18.0) L 07/23/24 04:44
Hct 33.1 % (39.0-52.0) L 07/23/24 04:44
Plt Count 293 10^3/uL (130-400) 07/23/24 04:44
Sodium 150 mmol/L (135-145) H 07/23/24 12:52
Potassium 3.8 mmol/L (3.5-5.1) 07/23/24 12:52
Chloride 105 mmol/L (98-107) 07/23/24 12:52
Carbon Dioxide 31 mmol/L (22-30) H 07/23/24 12:52
BUN 53 mg/dl (9-20) H 07/23/24 12:52
Creatinine 0.9 mg/dL (0.7-1.3) 07/23/24 12:52
eGFR > 60.00 07/23/24 12:52
Glucose 190 mg/dl (70-99) H 07/23/24 12:52
Calcium 9.3 mg/dl (8.4-10.2) 07/23/24 12:52
Uag-W-Fpcddslrpmd Pept Cancelled 07/21/24 12:31
Albumin 3.3 g/dl (3.5-5.0) L 07/21/24 03:54
echo:
CONCLUSIONS
Normal biventricular size and systolic function without regional wall motion
abnormality. Estimated LVEF 50-55%.
No significant valve disease.
No prior study available for comparison.
CT hest:
IMPRESSION:
Pulmonary parenchymal findings, as described. Most likely predominantly extensive severe/advanced centrilobular emphysema, combined with interstitial pulmonary fibrosis.
In the posterior superior segment of the right lower lobe there is a 4 mm nodule. Recommend follow-up in one year.
Physical Exam
General: Awake, No Distress and Nontoxic
HEENT: Anicteric, Facial Symmetry and Neck Supple
Respiratory: Nonlabored Respirations (decreasedBS)
Cardiac: S1/S2 and Other (irregular)
Breast: Deferred by me
Abdomen: Soft and Nontender
Musculoskeletal: No Cyanosis and No Edema
Skin: No Rash
Neuro: Nonfocal/Grossly Intact
Psych: Other (Irritable)
Data Reviewed
-
Labs: Labs Reviewed by me and Discussed with Family
Assessment/Plan
-
IMP:
Acute hypoxemic respiratory failure
Emphysema and Interstitial scarring/fibrosis on CT
Leukocytosis
Acute metabolic encephalopathy
New onset AF with RVR
UTI
Mechanical fall at home
Mildly displaced right acetabular fracture
ASCVD
Left subclavian steal
Bilateral carotid stenosis
Dyslipidemia
-Extensive history of vertebral and subclavian occlusions, vertebral basilar insufficiency, carotid stenosis,
H/O CVA
T2DM
Stage IIIa CKD
Orthostatic hypotension
Hypothyroidism
Gout
Dysphagia
Underweight, protein/caloric malnutrition, BMI 14.2
PLan:
A/w M fall at home, new Afib and RVR in ER
Hypernatremia-worsening, FWD 1.6lit
I would increase D5W at 75cc/hr
monitor reps status, suspect no hypervolemia currently, echo normal EF
BP stable on midodrine and florinef and also on steroid
prn lasix , cont to hold salt tabs
follow labs
NPO for asp risk
GOC discussed by palliative care and is now DNR
Son seem to focused on IV nutrition which I expressed has more complications
--- NOTE | 2024-07-23 14:35 | W.CON.PAL ---
Consultation
-
Date/Time Consultation Requested: 07/23/2024
Date/Time Consultation Performed: 07/23/2024
Requesting Provider: Dr. cherry
Performing Provider: Dr. Gallo
Reason for Consult: Goals of Care Discussion and Other (code status)
Primary Diagnosis: Hypoxia, hx of cva, chronic facial pain
Reason for Admission
Illness Course/HPI
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 He has
a right acetabulm fracture,and hospital stay has been complicated by respriatory failure due to CHF/COPD/interstitial lung diseae, new afib with RVR, new need for oxygen, dysphagia, and delerium.
Patient is signfiicantly delerious during visit, requiring son to redirect multiple times.
Patient is known to [facility], recent admit.
Functional Status
At patient's baseline he is ambulatory and independent. However, his condition waxes and wanes with low blood pressure, difficulty with swallowing, dehydration, and facial pain resurgence. At his baseline is he is clear.
Goals of Care Discussion
-
Individuals Present for Discussion & Relationship to Patient:
Son Santos
Patient able to participate in discussion at time of visit: No
Patient Goals
Discussed overall decline in past 4 months - has had 15lb weight loss, pain remains an issue despite multiple interventions, now lung/breathing issues and signfiicant delerium.
Son would still like to explore options for prn hydration/nutrition. HE understands that at this time any tubes would likely be pulled out given level of patients confusion. They had met with GI as an outpatient to discuss feeding tube. At this time
son is treatment oriented to treat current infection and see if options for outpatient IV fluids exist. he states that [facility] [facility] can provide this.
Discussed code status - son reports that patient does not want to in the hospital, and if he ended up getting intubated he would likely never make it home. He is agreeable to change code status to DNR/DNI - notified attending.
Pain & Symptom Assessment
-
patient unable to provide any ros
Objective Data
-
Objective Data:
Vital Signs
Temp Pulse Resp BP Pulse Ox
97.3 F 106 10 121/57 95
07/23/24 07:40 07/23/24 10:51 07/23/24 08:00 07/23/24 10:51 07/23/24 08:51
Laboratory Results
07/23/24 04:44
07/23/24 12:52
APTT 33.8 Sec (23.4-35.0) 07/23/24 12:52
Total Protein 6.3 g/dl (6.3-8.2) 07/16/24 12:27
Albumin 3.3 g/dl (3.5-5.0) L 07/21/24 03:54
Urine Color Yellow 07/16/24 12:27
Urine Clarity Clear (Clear) 07/16/24 12:27
Urine pH 6.0 (5.0-9.0) 07/16/24 12:27
Ur Specific [place] 1.015 (<1.030) 07/16/24 12:27
Urine Ketones Negative (Negative) 07/16/24 12:27
Urine Bilirubin Negative (Negative) 07/16/24 12:27
Palliative Performance Scale
Palliative Performance Scale:
PPS Level Ambulation Activity & Evidence of Disease Self Care Intake Conscious Level
100% Full Normal Activity & Work; Full Intake Full
No Evidence of Disease
90% Full Normal Activity & Work; Full Normal Full
Some Evidence of Disease
80% Full Normal Activity with Effort Full Normal or Full
Some Evidence of Disease Reduced
70% Reduced Unable Normal Job/Work Full Normal or Full
Significant Disease Reduced
60% Reduced Unable Hobby/Housework Occasional Normal or Full or Confusion
Significant Disease Assistance Reduced
50% Mainly Sit/Lie Unable to do Any Work Considerable Normal or Full or Confusion
Extensive Disease Assistance Req'd Reduced
40% Mainly in Bed Unable to do Most Activity Mainly Assistance Normal or Full or Drowsy;
Extensive Disease Reduced +/- Confusion
30% Totally Bed Unable to do Any Activity Total Care Normal or Full or Drowsy;
Bound Extensive Disease Reduced +/- Confusion
20% Totally Bed Bound Unable to do Any Activity Total Care Minimal to Full or Drowsy;
Extensive Disease Sips +/- Confusion
10% Totally Bed Bound Unable to do Any Activity Total Care Mouth Care Drowsy or Coma;
Extensive Disease Only +/- Confusion
0%
PPS Score Level:
Palliative Performance Score Response
Palliative Performance Score Response: 30%
Physical Exam
-
HEENT: Moist Mucous Membranes and Other (cachectic)
Psych: Confused and Agitated
Assessment / Plan
-
Assessment/Plan:
Change code status to DNR/DNI
Other goals remain treatment oriented at this time, son would like to explore hydration/nutrition options as an outpatient.
Discussed hospice briefly - not interested in it at this time. will need to revisit if no improvement with delerium. palliative care will continue to follow
[2024-07-23] MEDS: MORPHINE SULFATE 1 MG IV (15:06)
--- NOTE | 2024-07-23 15:14 | PTCARENOTE ---
Patient is confused to time, and situation. Failed swallow evaluation this morning. Oral care provided with suction. Patient converted to uncontrolled afib and Cardizem drip initiated. Patient unable to take oral medications, IV Heparin started as
per doctors orders. Patient is climbing out of bed, pulling off oxygen, asking for food, getting frustrated with the inability to eat. Video monitoring in affect and son sitting at bedside. Left hip pain treated with IV Morphine 1mg. Patient
continues to requires 4 lites of oxygen, pulse ox 93% at this time.
--- NOTE | 2024-07-23 15:16 | W.PN.PUL3 ---
Today's Communication / Plan
-
Okay to allow pressure feeds with assistance, aspiration precautions
Discontinue antibiotics
DNR status noted
Ongoing discussion regarding palliative care versus transition to primarily comfort measures
Assessment
-
81-year-old male with cachexia, hyperlipidemia, diabetes, previous CVA, chronic kidney disease, COPD, former smoker, who presented with rapid atrial fibrillation UTI and suspected CHF-has persistent hypoxemia and pulmonary was consulted 07/21/2024.
Respiratory failure-acute hypoxemic due to CHF/COPD/interstitial lung disease
CHF with preserved EF
New onset atrial fibrillation with rapid ventricular response
UTI
Toxic metabolic encephalopathy
Mechanical fall at home-mildly displaced right acetabular fracture
Leukocytosis
Pjhvbu-quijqjkgcj-hubhblbswl 11.0
Hyperglycemia
Protein calorie malnutrition
Conditions present prior to admission:
Hyperlipidemia.
Hypothyroid.
Former smoker.
COPD.
Diabetes.
Chronic renal failure.
Left subclavian artery occlusion.
Right vertebral artery occluded occlusion.
Bilateral left subclavian steal syndrome.
Gout.
Trigeminal neuralgia.
Plan/Recs
At this time, patient is comfortable, demanding to eat
He denies any shortness of breath
97% on 6 L, goes up to 100%
Respiratory decompensation likely multifactorial-CHF/interstitial lung disease and probable underlying COPD
Radiographs reviewed-markedly abnormal including interstitial lung disease/COPD changes/emphysematous changes-? Chronicity-no old films available
Moving forward
Both patient and son and made it clear that comfort is a priority at this time, comfort includes eating and drinking as patient wishes
According to the son, patient would left to have cream of wheat made with rice from home.
Patient and son are aware of risk of respiratory failure, aspiration event, worsening respiratory status, worsening hypoxia. They understand that this can lead to respiratory
According to son, patient is aware of this and would like to eat
Discussion prior regarding CODE STATUS noted. Patient is DNR. Reviewed at length with the palliative care
Okay to advance diet with assistance and sitting upright with aspiration maneuvers
Ideally, cream of wheat/rice, pur�ed meals
Supplemental oxygen as needed
Continue nebulizers-DuoNebs
Aspiration precautions
Incentive spirometry
Mucus clearing devices if needed
Encourage cough while eating
Discontinue antibiotics
Atrial fibrillation rate control
On Eliquis
Cardiology followed patient-signed off 07/18
DVT prophylaxis-on Eliquis
Nutrition
Early mobilization
Strongly consider palliative care or transition to comfort measures depending on clinical status
Reviewed at length with patient, son, multiple care providers
Diagnostic data:
Chest x-ray 07/19/2024-prominent interstitial markings especially left lung base
Chest x-ray 07/20/2024-severe interstitial disease and severe bilateral emphysema
Chest x-ray 07/21/2024-severe interstitial disease moderate groundglass opacifications appear unchanged, moderate bilateral hyperinflation
Subjective Data
-
Date of Service:
Date of Service: July 23, 2024
Subjective:
Patient pretty adamant about needing and drinking. Getting agitated. Apparently just received low-dose morphine. Patient demanding to go home. Son at bedside trying to calm him down. Son asking if patient is allowed to eat as he wishes.
Patient denies shortness of breath, chest pain. Has adequate cough
Objective Data
Data Reviewed
Vital Signs / I&O / Oxygen:
Vital Signs
Temp Pulse Resp BP Pulse Ox
97.3 F 109 18 109/84 97
07/23/24 07:40 07/23/24 14:40 07/23/24 14:40 07/23/24 14:40 07/23/24 15:12
Intake and Output
07/22/24 07/23/24 07/24/24
06:59 06:59 06:59
Intake Total 100 / 100
Output Total 1750 / 1750 1000 / 1000 150 / 150
Balance -1750 / -1750 -900 / -900 -150 / -150
SaO2 97
Nasal Cannula flow liters per 4
minute
Physical Exam
General: Comfortable and Other (Cachectic, muscle atrophy)
HEENT: Normocephalic
Cardiovascular: S1-S2, Regular Rhythm (Tachycardic) and Murmur (n)
Respiratory: Wheeze (n), Crackles (n), Rhonchi (n) and Non-Labored Respirations
GI: Soft, Non Distended and Non Tender
Neurology: Awake, Alert and No Motor Deficits (Able to sit up without assistance)
Skin: Cyanosis (n), Rash (n) and Bruising (n)
Labs/Micro/Reports
Lab Data
07/23/24 04:44
07/23/24 12:52
Laboratory Results
07/23/24
12:52
APTT 33.8
Microbiology
07/22/24 12:29 Nasal Swab Respiratory Syncytial Virus Culture - Final
Negative for Respiratory Syncytial Virus.
A false negative result may be obtained with a specimen
collected early in the acute phase. If symptoms persist, a
new specimen should be tested.
07/21/24 14:51 Nasal Swab Influenza Types A & B (SHY) - Final
Negative for Influenza A & B, NAAT
Negative results must be combined with clinical observations
and patient history.
Nucleic Acid Amplification test (NAAT)performed on the
[employer] platform.
--- NOTE | 2024-07-23 15:55 | CON.GI ---
Consultation
-
Date/Time Consultation Requested: 07/23/24 at 3pm
Date/Time Consultation Performed: 07/23/24 at 3:15
Requesting Provider: flavia
Performing Provider: ludin
Reason for Consultation: dysphagia/peg
Medical History
Chief Complaint / HPI
Chief Complaint: dysphagia
History of Present Illness:
This patient is an 89-year-old man with history of chronic left facial pain for neuroma surgery to his trigeminal nerve in March 2024, history of TIA, diabetes, gout, hypothyroidism who suffered a fall. He was admitted with a leg fracture as well as
respiratory failure due to advanced COPD and interstitial lung disease. During that time he also had atrial fibrillation with rapid rate and delirium. He did have a swallow study done to evaluate. He was found to have aspiration by video swallow.
He did initially do well with pudding like consistency. He has suffered from some waxing and waning of mental status as well as 15 pound weight loss. He does want to eat. He has changed his code status to dNR/DNI
Past Medical History
Past Medical History: NIDDM and Other (Chronic kidney disease, trigeminal neuralgia, diabetes, left subclavian arterial occlusion, trigeminal neuroma)
Past Surgical History: None (No abdominal surgery)
Social History
Tobacco: Former Smoker
Family History
Family History: Reviewed & Not Pertinent
Allergies / Home Medications
Allergy/AdvReac Type Severity Reaction Status Date / Time
amoxicillin Allergy Nausea / Verified 07/20/24 18:35
Vomiting
�Medication �Instructions �Recorded
allopurinol 100 mg tablet 100 mg PO DAILY Gout 07/16/24
aspirin 81 mg chewable tablet 81 mg PO DAILY Blood Clot 07/16/24
Prevention/Tx
atorvastatin 40 mg tablet 40 mg PO QPM high cholesterol 07/16/24
azelastine 137 mcg (0.1 %) nasal 1 spray intranasal BID LEFT 07/16/24
spray nostril only
clopidogrel 75 mg tablet 75 mg PO DAILY Blood Clot 07/16/24
Prevention/Tx
famotidine 40 mg tablet 40 mg PO HS Gastrointestinal Issue 07/16/24
fludrocortisone 0.1 mg tablet 0.1 mg PO MEALS Blood Pressure 07/16/24
fluticasone propionate 50 1 spray intranasal BID LEFT 07/16/24
mcg/actuation nasal nostril only
spray,suspension
ipratropium bromide 42 mcg (0.06 1 spray intranasal BID LEFT 07/16/24
%) nasal spray nostril only
magnesium 250 mg tablet 250 mg PO BID Supplement 07/16/24
midodrine 10 mg tablet 10 mg PO MEALS Blood Pressure 07/16/24
sodium chloride 1,000 mg soluble 1,000 mg PO BID Electrolyte 07/16/24
tablet Repletion
Review of Systems
-
Unable to obtain full review of systems at this time due to: Other (Combative and confused)
Vital Signs
Temp Pulse Resp BP Pulse Ox
97.8 F 109 18 109/84 97
07/23/24 11:45 07/23/24 14:40 07/23/24 14:40 07/23/24 14:40 07/23/24 15:12
Physical Exam
Exam
General: Other (Combative)
GI: Soft, Non Tender and Non Distended
Psych: Agitated
Results
WBC 8.1 10^3/uL (4.8-10.8) 07/23/24 04:44
Hgb 11.4 g/dL (13.0-18.0) L 07/23/24 04:44
Hct 33.1 % (39.0-52.0) L 07/23/24 04:44
MCV 98.8 fL (80.0-94.0) H 07/23/24 04:44
Plt Count 293 10^3/uL (130-400) 07/23/24 04:44
Absolute Neuts (auto) 7.3 10^3/uL (1.4-6.5) H 07/23/24 04:44
APTT 33.8 Sec (23.4-35.0) 07/23/24 12:52
Sodium 150 mmol/L (135-145) H 07/23/24 12:52
Potassium 3.8 mmol/L (3.5-5.1) 07/23/24 12:52
Chloride 105 mmol/L (98-107) 07/23/24 12:52
Carbon Dioxide 31 mmol/L (22-30) H 07/23/24 12:52
BUN 53 mg/dl (9-20) H 07/23/24 12:52
Creatinine 0.9 mg/dL (0.7-1.3) 07/23/24 12:52
Calcium 9.3 mg/dl (8.4-10.2) 07/23/24 12:52
Total Bilirubin 0.7 mg/dl (0.2-1.3) 07/16/24 12:27
AST 28 U/L (17-59) 07/16/24 12:27
ALT 24 U/L (0-50) 07/16/24 12:27
Alkaline Phosphatase 120 U/L (38-126) 07/16/24 12:27
Assessment / Plan
-
This patient is a 89-year-old man who has been in decline over the last several months. He does have known oropharyngeal dysphagia and did have a swallow study a year ago. At that time he had a modified diet. Today he failed a swallow study but
he is excessively combative and confused. For now would do the following;
1. attempt at holding meds that are causing delirium
2. would not place PEG tube at this time as he clearly will pull it out (he will also pull out a dobhoff)
3. d/w son that IV nutrition isn't a market research assistant possibility
4. with GOC in place it wouldn't be unreasonable to give son and patient instruction on maneuvers to lessen aspiration, son does seem agreeable to that as he has modified his diet and is aware of maneuvers
-
-
Thank you for consultation and allowing me to participate in the patient's care. Please call the documentation nurse GI physician during the after hours with any questions or concerns.
--- NOTE | 2024-07-23 16:03 | CM ---
Patient with Dx Acute hypoxemic respiratory failure, Acute metabolic encephalopathy, delirium, new Afib w RVR, UTI, right hip Fx after fall at home. Seen by Palliative Care - GOC discussion. Psych Consult - TME improving, intermittent agitation.
O2 6L midflow. VSE today. Seen by Holiday Detector Operator. Receiving IVF, Heparin gtt, Cardizem gtt, IV Steroids, IV MS x1 for pain. Per nurse; confused. Medsitter. PT/OT; assist of 2, recommend skilled rehab.
Reviewed prior SNF referrals; accepted by [facility], [facility], [facility].
Met with son while patient was working with PT/OT.
Informed son patient accepted by all 3 of his preferred SNFs and son will decide later. Agree to meet with son again when closer to d/c.
CM continuing to follow for d/c needs.
Plan SNF for rehab.
[2024-07-23] MEDS: LIPITOR PO (16:17)
[2024-07-23] MEDS: LOW STRENGTH ASPIRIN 81 MG PO (17:41)
[2024-07-23] MEDS: ProAmatine 10 MG PO (17:43)
[2024-07-23] MEDS: LIPITOR 40 MG PO (17:43)
--- NOTE | 2024-07-23 17:53 | PTCARENOTE ---
Patient asking for food, aspiration risks discussed with patient and son. Hospitalist placed Pureed diet order. Patient is now in chair position eat spoonsfuls of pureed food with son. Son verbalized understanding of risks of oral intake.
--- NOTE | 2024-07-23 18:11 | PTCARENOTE ---
Patients neville catheter was discontinued this morning. Patient voided 150ml of clear yellow urine continent in the urinal.
[2024-07-23 20:27] LABS: APTT 61.3 Sec (23.4-35.0)
[2024-07-23] MEDS: DECADRON IV (20:32)
[2024-07-23] MEDS: PEPCID PO (20:32)
[2024-07-23 20:54] LABS: Blood Urea Nitrogen 55 mg/dl (9-20); Calcium 8.9 mg/dl (8.4-10.2); Carbon Dioxide 29 mmol/L (22-30); Chloride 107 mmol/L (98-107); Estimated Creatinine Clearance 32 ml/min; Glucose 286 mg/dl (70-99); Potassium 3.3 mmol/L (3.5-5.1); Sodium 148 mmol/L (135-145); eGFR > 60.00
[2024-07-23] MEDS: OFIRMEV 100 IV (21:26)
--- NOTE | 2024-07-23 21:42 | PTCARENOTE ---
Addendum entered by Solomon Mazariegos RN 07/23/24 22:12:
Patient continues to be restless, dangling legs on side rails. FABRICE Hanna made aware and ordered IM zyprexa per psych note recommendation. left anterior wrist with dried abrasion scab that was present upon wrist restraint application; scab came off
with pt movement and small amount of bleeding under restraint. dressing applied.
Original Note:
Patient found with IV out and no-no iv protector on the ground. Family(son and DIL) went home. Med sitter at bedside, no call or notification recvied. FABRICE Hanna made aware, ordered bilateral wrist restraints. IV tylenol given. Pt reoriented to
place and situation. VAT at bedside to re-dress LFA IV and placed new RAC IV.Bed alarm set. Rounding frequently for safety.
[2024-07-23] MEDS: ZYPREXA 2.5 MG IM (22:03)
[2024-07-23] MEDS: STERILE WATER FOR INJECTION 2.1 ML IM (22:06)
[2024-07-23] MEDS: KCL 270 MEQ IV (22:28)
[2024-07-24] VITALS (14 sets, daily range): BP systolic 101–150; BP diastolic 65–113; BMI 14.1
[2024-07-24 02:14] LABS: APTT 94.1 Sec (23.4-35.0)
[2024-07-24 02:48] LABS: Blood Urea Nitrogen 58 mg/dl (9-20); Calcium 8.8 mg/dl (8.4-10.2); Carbon Dioxide 26 mmol/L (22-30); Chloride 108 mmol/L (98-107); Estimated Creatinine Clearance 36 ml/min; Glucose 202 mg/dl (70-99); Potassium 3.7 mmol/L (3.5-5.1); Sodium 148 mmol/L (135-145); eGFR > 60.00
--- NOTE | 2024-07-24 03:29 | PTCARENOTE ---
Addendum entered by Solomon Mazariegos RN 07/24/24 06:02:
HR 60s, Cardizem gtt titrated off. IVF discontinued in DEC. IV saline locked.
Original Note:
Pt continues to be restless, moving around and irritating IVs. Another IV replaced by VAT d/t bleeding at iv insertion site. Patient receiving IVF, K Cl replacement, Cardizem gtt and heparin gtt. Pt has been stuck multiple time for
labwork(BMP/PTT/IV plaements). Large purple bruising on bilateral arms/wrists. skin tears present to bilateral wrists prior to placing restraints; dressings applied. Pt has been up all night so far yelling, restless and not able to be re-oriented.
Pt started kicking at staff. Bilateral soft ankle restraints applied for staff safety. FABRICE Hanna made aware. Order for Risperdal received. RN sitting outside closest nursing station, able to monitor pt via window. Med sitter continues to be in
place.
[2024-07-24] MEDS: RISPERDAL M-TAB (ORALLY DISINTEGRATING) 1 MG PO (03:48)
[2024-07-24] MEDS: DECADRON 4 MG IV ×3 (05:06→22:49)
[2024-07-24 07:58] LABS: % Basophils 0.1 % (0-2); % Immature Granulocytes 0.7 % (0-0.5); % Lymphocytes 3.4 % (20.5-51.1); % Monocytes 5.2 % (1.7-9.3); % Neutrophils 90.6 % (42.2-75.2); APTT 90.8 Sec (23.4-35.0); Absolute Immature Granulocytes 0.1 10^3/uL (0-0.05); Absolute Lymphocytes 0.4 10^3/uL (1.2-3.4); Absolute Monocytes 0.6 10^3/uL (0.1-0.6); Absolute Neutrophils 10.2 10^3/uL (1.4-6.5); Hematocrit 35.9 % (39.0-52.0); Hemoglobin 11.8 g/dL (13.0-18.0); Mean Corp Hgb Conc. 32.9 g/dL (33.0-37.0); Mean Corpuscular Volume 97.3 fL (80.0-94.0); Mean Platelet Volume 10.5 fL (7.4-10.4); Nucleated Red Blood Cells % 0 % (-); Platelet Count 302 10^3/uL (130-400); Red Blood Cell Count 3.69 10^6/uL (4.70-6.10); Red Cell Dist. Width 14.6 % (11.5-14.5); White Blood Cell Count 11.2 10^3/uL (4.8-10.8)
[2024-07-24 08:30] LABS: Blood Urea Nitrogen 56 mg/dl (9-20); Calcium 9.1 mg/dl (8.4-10.2); Carbon Dioxide 27 mmol/L (22-30); Chloride 107 mmol/L (98-107); Estimated Creatinine Clearance 40 ml/min; Glucose 155 mg/dl (70-99); Magnesium 2.3 mg/dl (1.6-2.3); Potassium 4.2 mmol/L (3.5-5.1); Sodium 148 mmol/L (135-145); eGFR > 60.00
[2024-07-24] MEDS: MAGNESIUM OXIDE 250 MG PO (09:01)
[2024-07-24] MEDS: LOW STRENGTH ASPIRIN 81 MG PO (09:01)
[2024-07-24] MEDS: SOLU-CORTEF 50 MG IV (09:02)
[2024-07-24] MEDS: ProAmatine 10 MG PO ×2 (09:02→13:31)
[2024-07-24] MEDS: ZYLOPRIM 100 MG PO (09:03)
[2024-07-24] MEDS: THIAMINE INJECTION 200 MG IV (09:04)
--- NOTE | 2024-07-24 09:09 | W.PN.CD ---
Today's Communication / Plan
-
Resume p.o. diltiazem and low-dose apixaban
Cardiology to sign off
Impression / Plan
-
BACKGROUND: 89M with orthostatic hypotension, prediabetes, chronic kidney disease, dyslipidemia, gout, prior TIA/CVA and PAD who presented to the emergency department with a chief complaint of a mechanical fall.
PLAN:
Dysphagia
-Now able to be on a pur�ed diet
-Switch medications back to p.o. since he is tolerating crushed meds
Atrial fibrillation with rapid ventricular response, new diagnosis
-Resume long-acting diltiazem 120 mg daily
-Oral Anticoagulation: None prior to arrival, apixaban 2.5 mg twice daily (age 89, weight <60 kg)
-No signs or symptoms of bleeding. Hemoglobin stable today
-[id number]: Score at least 4 (age 75 or more, prior Stroke/TIA, Vascular disease)
-He is not sure if he has an outpatient reciprocating drill operator. Will ask primary team to discuss with family for follow-up purposes.
-We will sign off at this time. Please call with further questions
UTI, per primary
Mechanical fall
Acute fracture of the right acetabulum
-Per primary service
Respiratory failure, acute hypoxemic, in the setting of COPD/ILD, on intravenous steroids per pulmonary
Prior probable TIA
-Previously on ASA and clopidogrel, now apixaban as above
Dyslipidemia
-Lipid panel 05/2023: TC 221, LDL 141, HDL 45, TG 201
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
Prediabetes, outpatient A1c 6.0%
Chronic hypotension, on fludrocortisone
Underweight, protein/caloric malnutrition, BMI 14.2
SUBJECTIVE:
This morning he is on sinus rhythm on telemetry. His diltiazem drip has been stopped. He met with palliative care yesterday and is now a DNR. On a pur�ed diet with crushed meds. Delirious. Asking when he can go home.
Physical Exam
Vital Signs/Labs
Vital Signs
Temp Pulse Resp BP Pulse Ox
97.1 F 79 10 126/65 98
07/24/24 07:08 07/24/24 09:02 07/24/24 08:00 07/24/24 09:02 07/24/24 06:05
07/23/24 07/24/24 07/25/24
06:59 06:59 06:59
Actual Weight 44.5 kg
07/24/24 07:36
07/24/24 07:36
APTT 90.8 Sec (23.4-35.0) H 07/24/24 07:36
Magnesium 2.3 mg/dl (1.6-2.3) 07/24/24 07:36
07/21/24 07/21/24
03:54 12:31
[id number] Pept [id number] Cancelled
Physical Exam
Constitutional: Confusion
Cardiovascular: Rhythm & rate is regular, Pedal edema is absent, JVD pressure is normal and Murmur/rub/gallop absent
Respiratory: Respiratory effort normal
Data Reviewed
-
Date of Service: July 24, 2024
Medical Decision Making: Reviewed Test Results, Independent Historian Assessment, Test Interpretation and Review of Case with other Provider
EKG: Tracing Personally Visualized and interpreted
Echo: Report Reviewed by me
Labs: Labs Reviewed by me
Total Time Spent with Patient (in minutes): 10
--- NOTE | 2024-07-24 09:33 | W.PN.PUL3 ---
Today's Communication / Plan
-
Continue with pleasure feeds, aspiration precautions
Oxygen as needed
Being evaluated for home hospice
We will sign off. Please call with questions
Assessment
-
81-year-old male with cachexia, hyperlipidemia, diabetes, previous CVA, chronic kidney disease, COPD, former smoker, who presented with rapid atrial fibrillation UTI and suspected CHF-has persistent hypoxemia and pulmonary was consulted 07/21/2024.
Respiratory failure-acute hypoxemic due to CHF/COPD/interstitial lung disease
CHF with preserved EF
New onset atrial fibrillation with rapid ventricular response
UTI
Toxic metabolic encephalopathy
Mechanical fall at home-mildly displaced right acetabular fracture
Leukocytosis
Cursfh-lwkyqycpze-wlrkhztzed 11.0
Hyperglycemia
Protein calorie malnutrition
Conditions present prior to admission:
Hyperlipidemia.
Hypothyroid.
Former smoker.
COPD.
Diabetes.
Chronic renal failure.
Left subclavian artery occlusion.
Right vertebral artery occluded occlusion.
Bilateral left subclavian steal syndrome.
Gout.
Trigeminal neuralgia.
Plan/Recs
At this time, patient is comfortable, oxygen requirement varies between 6 L and 12 L, currently 99%
He denies any shortness of breath
97% on 6 L, goes up to 100%
tolerating pur�ed food yesterday p.m.
At risk for aspiration, worsening respiratory failure
Moving forward
Both patient and son and made it clear that comfort is a priority at this time, comfort includes eating and drinking as patient wishes
DNR status noted
Noted plans for transition to home hospice, depending on feasibility
Okay to advance diet with assistance and sitting upright with aspiration maneuvers
Ideally, cream of wheat/rice, pur�ed meals
Supplemental oxygen as needed
Continue nebulizers-DuoNebs
Aspiration precautions
Incentive spirometry
Mucus clearing devices if needed
Encourage cough while eating
Discontinue antibiotics
Atrial fibrillation rate control
On Eliquis
Cardiology followed patient-signed off 07/18
DVT prophylaxis-on Eliquis
Nutrition
Early mobilization
We will sign off. Please call with questions
Diagnostic data:
Chest x-ray 07/19/2024-prominent interstitial markings especially left lung base
Chest x-ray 07/20/2024-severe interstitial disease and severe bilateral emphysema
Chest x-ray 07/21/2024-severe interstitial disease moderate groundglass opacifications appear unchanged, moderate bilateral hyperinflation
Subjective Data
-
Date of Service:
Date of Service: July 24, 2024
Subjective:
Patient with intermittent agitation throughout the night. Respiratory status appears to be stable, currently 99% 12 L mid flow
Objective Data
Data Reviewed
Vital Signs / I&O / Oxygen:
Vital Signs
Temp Pulse Resp BP Pulse Ox
97.1 F 79 10 126/65 98
07/24/24 07:08 07/24/24 09:02 07/24/24 08:00 07/24/24 09:02 07/24/24 06:05
Intake and Output
07/23/24 07/24/24 07/25/24
06:59 06:59 06:59
Intake Total 100 / 100 780 / 780
Output Total 1000 / 1000 550 / 550
Balance -900 / -900 230 / 230
SaO2 98
Nasal Cannula flow liters per 4
minute
Physical Exam
General: Comfortable and Other (Cachectic, muscle atrophy)
HEENT: Normocephalic
Cardiovascular: S1-S2, Regular Rhythm (Tachycardic) and Murmur (n)
Respiratory: Wheeze (n), Crackles (n), Rhonchi (n) and Non-Labored Respirations
GI: Soft, Non Distended and Non Tender
Neurology: Awake, Alert (Agitated) and No Motor Deficits (Able to sit up without assistance)
Skin: Cyanosis (n), Rash (n) and Bruising (n)
Labs/Micro/Reports
Lab Data
07/24/24 07:36
07/24/24 07:36
Laboratory Results
07/23/24 07/23/24 07/24/24
12:52 20:07 01:54
APTT 33.8 61.3 H 94.1 H
07/24/24
07:36
APTT 90.8 H
Microbiology
07/22/24 12:29 Nasal Swab Respiratory Syncytial Virus Culture - Final
Negative for Respiratory Syncytial Virus.
A false negative result may be obtained with a specimen
collected early in the acute phase. If symptoms persist, a
new specimen should be tested.
07/21/24 14:51 Nasal Swab Influenza Types A & B (SHY) - Final
Negative for Influenza A & B, NAAT
Negative results must be combined with clinical observations
and patient history.
Nucleic Acid Amplification test (NAAT)performed on the
[employer] platform.
[2024-07-24] MEDS: CARDIZEM CD 120 MG PO (10:07)
[2024-07-24] MEDS: ELIQUIS 2.5 MG PO (10:07)
--- NOTE | 2024-07-24 10:07 | W.PN.GI.CBS2 ---
Addendum entered and electronically signed by Julio Caceres MD 07/24/24 10:45:
I saw and examined the patient.
The BOTTOM WORKER or PA's note was reviewed and I agree with the note.
Comment: Pt confused and agitated. Goals of care being discussed with son, possible palliative care
REC:
He is not candidate for DHT or PEG at this point given his agitation
Agree with discussions for hospice with family.
Will sign off at this time. Please call back if needed
Original Note:
Today's Communication / Plan
-
reviewed speech noted pt and family has chosen comfort feed and accept risk of aspiration
he continues with hypoxemia and confusion/hallucinations
he is not current candidate for DHT (high risk for pulling out) or peg (high risk for pulling out, not candidate of anesthesia with hypoxemia and current Anticoagulation)
consider further goals of care discussion with family- currently DNR
will sign off call if we can be of any further assistance
Assessment / Plan
-
This patient is a 89-year-old man who has been in decline over the last several months. He does have known oropharyngeal dysphagia and did have a swallow study a year ago. At that time he had a modified diet. Today he failed a swallow study but
he is excessively combative and confused. For now would do the following;
-dysphagia
-confusion/hallucinations
-hypoxemia with hx ILD/COPD
--afibv with RVR on Eliquis
-UTI
-s/p fall
-TIA- Plavix prior to admission
-CKD
PLAN:
reviewed speech noted pt and family has chosen comfort feed and accept risk of aspiration
he continues with hypoxemia and confusion/hallucinations
he is not current candidate for DHT (high risk for pulling out) or peg (high risk for pulling out, not candidate of anesthesia with hypoxemia and current Anticoagulation)
consider further goals of care discussion with family- currently DNR
will sign off call if we can be of any further assistance
Subjective
Subjective
Date of Service: July 24, 2024
07/23 brown stool on IDDS 4 and accepting aspiration risk still with hallucination and remains restained
Objective
Data Reviewed
Laboratory Data:
Laboratory Results
07/24/24 07:36
07/24/24 07:36
Laboratory Results
APTT 90.8 Sec (23.4-35.0) H 07/24/24 07:36
Magnesium 2.3 mg/dl (1.6-2.3) 07/24/24 07:36
Total Bilirubin 0.7 mg/dl (0.2-1.3) 07/16/24 12:27
AST 28 U/L (17-59) 07/16/24 12:27
ALT 24 U/L (0-50) 07/16/24 12:27
Alkaline Phosphatase 120 U/L (38-126) 07/16/24 12:27
Vital Signs and I&O:
Vital Signs
Temp Pulse Resp BP Pulse Ox
97.1 F 104 10 108/87 98
07/24/24 07:08 07/24/24 10:07 07/24/24 08:00 07/24/24 10:07 07/24/24 06:05
I&O
07/23/24 07/24/24 07/25/24
06:59 06:59 06:59
Intake Total 100 / 100 780 / 780
Output Total 1000 / 1000 550 / 550
Balance -900 / -900 230 / 230
Physical Exam
Physical Exam
HEENT: Anicteric and Moist mucous membranes
Cardiology: Other (tachy )
Pulmonary: Other (decreased bases with increased O2 requirement )
GI: Soft, Non Distended and Non Tender
Extremities: No Edema
Neuro: Other (confused )
--- NOTE | 2024-07-24 10:28 | CM ---
According to Vania Giraldo from Palliative Care , who makes home visits to this patient, she stated that this patient lives alone and does not live with his Son. She feels that he would do best if he would go to s penitentiary facility after
discharge for rehabilitation. Update to .
--- NOTE | 2024-07-24 11:05 | HOSPNOTE ---
Tried to call son and had to leave a message. Will await phone call.
--- NOTE | 2024-07-24 11:16 | W.PN.PAL2 ---
Today's Communication
-
Patient with decline in condition overnight, upto 12L o2 by NC. Family transitioning to comfort care/hospice. Hospice liasion is aware with plan for home hospice if family in agreement.
Patient remains delerious at this time. no family at bedside.
Objective Data
-
Objective Data:
Vital Signs
Temp Pulse Resp BP Pulse Ox
97.1 F 104 13 108/87 96
07/24/24 07:08 07/24/24 10:07 07/24/24 10:00 07/24/24 10:07 07/24/24 10:13
Laboratory Results
07/24/24 07:36
07/24/24 07:36
APTT 90.8 Sec (23.4-35.0) H 07/24/24 07:36
Total Protein 6.3 g/dl (6.3-8.2) 07/16/24 12:27
Albumin 3.3 g/dl (3.5-5.0) L 07/21/24 03:54
Urine Color Yellow 07/16/24 12:27
Urine Clarity Clear (Clear) 07/16/24 12:27
Urine pH 6.0 (5.0-9.0) 07/16/24 12:27
Ur Specific [place] 1.015 (<1.030) 07/16/24 12:27
Urine Ketones Negative (Negative) 07/16/24 12:27
Urine Bilirubin Negative (Negative) 07/16/24 12:27
Palliative Performance Scale
Palliative Performance Scale:
PPS Level Ambulation Activity & Evidence of Disease Self Care Intake Conscious Level
100% Full Normal Activity & Work; Full Intake Full
No Evidence of Disease
90% Full Normal Activity & Work; Full Normal Full
Some Evidence of Disease
80% Full Normal Activity with Effort Full Normal or Full
Some Evidence of Disease Reduced
70% Reduced Unable Normal Job/Work Full Normal or Full
Significant Disease Reduced
60% Reduced Unable Hobby/Housework Occasional Normal or Full or Confusion
Significant Disease Assistance Reduced
50% Mainly Sit/Lie Unable to do Any Work Considerable Normal or Full or Confusion
Extensive Disease Assistance Req'd Reduced
40% Mainly in Bed Unable to do Most Activity Mainly Assistance Normal or Full or Drowsy;
Extensive Disease Reduced +/- Confusion
30% Totally Bed Unable to do Any Activity Total Care Normal or Full or Drowsy;
Bound Extensive Disease Reduced +/- Confusion
20% Totally Bed Bound Unable to do Any Activity Total Care Minimal to Full or Drowsy;
Extensive Disease Sips +/- Confusion
10% Totally Bed Bound Unable to do Any Activity Total Care Mouth Care Drowsy or Coma;
Extensive Disease Only +/- Confusion
0%
PPS Score Level:
--- NOTE | 2024-07-24 12:12 | W.PN.UPDATE ---
Update Note
Progress Note Update
Received tt from nurse to see pt MICHAEL
I happened to be near the pts room
Clarified with nurse that it was not a medical emergency
Met with son and DIL
They have strong wishes to take pt on home hospice as soon as possible
Reviewed again with son goals and philosophy of hospice. They had many questions about what equipment they can get delivered
I reassured them that the hospice team will help with these questions
I decreased his oxygen to 6l. He is currently 99% on 6L
Would further decrease to less than 5L to facilitate home hospice plans
All questions answered and emotional support provided
--- NOTE | 2024-07-24 12:45 | W.PN.UPDATE ---
Update Note
Progress Note Update
Pt is now considering hospice
will s/o, call with ?s
--- NOTE | 2024-07-24 12:52 | PTCARENOTE ---
Patients family removed restraints without notifying nurse. Nurse educated patients family about safety concerns. Family is at bedside at this time , patient is calm.
--- NOTE | 2024-07-24 13:05 | HOSPNOTE ---
Met with family and discussed hospice and the philosophy. Ongoing discussion. Will continue to update.
--- NOTE | 2024-07-24 13:35 | W.PN.HOSP.TC ---
Today's Communication/Plan
-
Continue usual medical management today -- antibiotics, IV fluids etc.
May need more oxygen given his aspiration
Plan for patient to be discharge to home with home hospice tomorrow
Assessment / Plan
Assessment / Plan
Physical Exam
General: No Apparent Distress, Comfortable and Cachectic
HEENT: Normocephalic, Atraumatic, Moist Mucous Membranes and Oxygen (12 L midflow nasal cannula later went back down to 6 L midflow nasal cannula)
Respiratory: Crackles (Bibasilar)
Cardiac: S1/S2 and Irregular Rhythm
GI: Soft, Nontender, Nondistended and Normal Bowel Sounds
Musculoskeletal: No Cyanosis and No Edema
Skin: Warm, Dry and Normal Turgor
Neuro: Awake, Alert, Oriented and Nonfocal/Grossly Intact
Psych: Calm

Echocardiogram (as per procedures nurse's report from 07/23/24)
CONCLUSIONS
Normal biventricular size and systolic function without regional wall motion
abnormality. Estimated LVEF 50-55%.
No significant valve disease.
No prior study available for comparison.

Assessment/Plan
#Acute hypoxemic respiratory failure, at least partly explained by aspiration, CHF/COPD/interstitial lung disease
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
#Leukocytosis
-Also has been altered fairly consistently while here, question if he is aspirating as well
-X-rays here show severe emphysema, signs of ILD versus IPF; minimal known history concerning these
-Initially was on room air though has required up titration to nonrebreather later during hospitalization, and now on midflow nasal cannula
-Chest x-ray suggested interstitial inflammation and pulmonary edema
-Currently on IV Lasix and started on IV steroid; also on antibiotics for UTI
-Pulmonology following
Plan
-C/w IV Lasix 40 mg PRN per volume status
-C/W IV decadron 4mg Q8 -- will discharge on prednisone taper
-C/W PRN DuoNebs
-Wean oxygen for SpO2 goal >88%
-F/U CT thorax and TTE
-Trend CBC and temperature curve
#Acute metabolic encephalopathy
-Suspect this is multifactorial with delirium, opiate effect, component of UTI
-Per his son he is AOx3 at baseline, has been lucid at times today though volatile
-Suspect this will improve with correction of the issues as below
-Starting to improve
#Severe Oropharyngeal Dysphagia
-Consulted palliative care physician Dr. Bonnie Gallo -- and code status was changed to DNR/DNI
-Patient's son would like to continue usual medical management while inpatient, but is onboard with home with home hospice on discharge
-Per speech Marilyn Marquez as of 07/23/24, VSE completed: aspiration of all including significant amount of barium pudding. NPO and GOC discussion were recommended. When speech therapist discussed with patient the
results, patient said 'I know. I choke all the time. Can I have a doughnut and coffee?'
-Discussed case on 07/23/24 with pulmonary: Dr. Rebollar met with the patient and his son, patient wanted a bowl of cream of wheat from home, son was told he could make it and bring it from home, patient and son
understand the risks of PO intake at this time
-Therefore, changed patient's diet to Pureed
-Consulted GI -- no PEG tube or Dobhoff tube at this time since with patient's delirium and agitation, he will pull it out
-Spoke with clinical pharmacist Heather Fofana (in case patient is strict NPO): recommended (if patient was to be strict NPO) to hold allopurinol, mag oxide, midodrine, and recommended switching to: heparin drip Cardiac protocol, IV famotidine, consider
changing fludrocortisone to hydrocortisone IV 50 mg daily as confirmed with on-call molded goods operator. I spoke with on-call molded goods operator who recommended starting IV Hydrocortisone 50 mg daily in lieu of patient's outpatient Fludrocortisone
medication, okay
to keep intravenous Dexamethasone as is for now -- nurse will try giving him his Allopurinol, Lipitor, Pepcid, Magnesium Oxide, Midodrine if he can tolerate those medications -- currently doing oral medications as patient and family have elected
for
comfort feeding
-Aspiration precautions
#Agitation
-Per nurse on 07/23/24, patient pulling out tubes, yelling
-QTc 482 on July 23, 2024
-Consulted psychiatry, appreciate their evaluation and recommendations: could try intravenous PRN Ativan; Melatonin could help with sleep and overall mental status when able to be given; Zyprexa 2.5 mg IM could be used for
severe agitation/aggressive behavior
#Hypernatremia
-D5W @ 75 cc/hr for now -- monitor respiratory status closely while patient is getting IV fluids
-Hold patient's home salt tablets
-Appreciate nephrology
-Monitor potassium
#New-Onset Atrial Fibrillation with Rapid Ventricular Response
-Nonvalvular; [id number] 4; likely provoked from stress of fall, possible prerenal state
-Re-consulted cardiology on 07/23/24 -- patient was temporarily on IV Heparin and IV Cardizem due to strict NPO, but now switched back to Eliquis and PO Cardizem, appreciate cardiology
#UTI
-Urinalysis from the ED with pyuria, many bacteria, positive leukocyte esterase
-Urine culture returned positive for E. coli with resistance to ciprofloxacin and tetracyclines
-Transition from ceftriaxone to cefdinir to complete 7-day course (was getting Cefdinir 300 mg BID since 07/19/24 morning), transitioned back to Ceftriaxone on 07/23/24 due to failing speech/swallow evaluation
-Continue antibiotics -- will discharge with PO antibiotics
#Mechanical fall at home
#Mildly displaced right acetabular fracture
-Had a fall at home onto his right hip, imaging without signs of fracture
-Was started on morphine sulfate in the ED, adequate response
-CT showed mildly displaced acetabular fracture, nondisplaced pubic ramus fracture
-Continue pain control as needed
-Currently weightbearing as tolerated with walker
-PT/OT consult pending
#ASCVD
#Left subclavian steal
#Bilateral carotid stenosis
#Dyslipidemia
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
-Home medications include DAPT with aspirin and Plavix (but now on Heparin Drip), high intensity statin
-No signs or symptoms of new atherosclerotic occlusions
-Discussed with vascular surgery (via [facility] on 07/23/24) to see whether patient should be on at least one antiplatelet medication: okay to resume Aspirin only (not Plavix) along with systemic anticoagulation
#Type 2 Diabetes Mellitus
-No recent A1c on record, not currently on home medications, no history of microvascular disease
-Continue ISS with Accu-Cheks, blood glucose goal 150�200
#Stage IIIa CKD
-Baseline renal function with creatinine near 1.0, creatinine clearance mid 40s
-No chronic acidemia, anemia, bone mineral disease associated with CKD
-Renal function currently at baseline
#Orthostatic hypotension
-Seems to have severe disease
-Home medications include midodrine, fludrocortisone, NaCl tabs twice daily -- holding NaCl given hypernatremia at this time. Fludrocortisone held due to unsafe swallowing.
-Continue monitoring for orthostatic symptoms while here
#Hypothyroidism
-Unclear etiology, does not seem to be on any levothyroxine replacement at home
-Per previous documentation
#Gout
-Home meds include allopurinol 100 mg daily
-No signs of acute flare at this time
DVT prophylaxis: Heparin drip
Diet: Okay for comfort pureed diet after pulmonary spoke to patient on 07/23/24.
CODE STATUS: DNR and also DO NOT INTUBATE (DR. BONNIE GALLO OF PALLIATIVE CARE TEAM CONFIRMED THIS WITH PATIENT'S SON -- patient delirious/confused). Appreciate Dr. Gallo's help.
On 07/23/24, I spoke with both patient and his son Santos inside patient's room, they mentioned they would like everything done including breathing machine/intubation if needed and Full Code. However, Dr. Bonnie Gallo of palliative care spoke with
patient and his son and they mentioned that patient is to be DNR starting now, and no intubation or mechanical ventilation. Code Status changed to DNR and no intubation/no mechanical ventilation. Appreciate Dr. Gallo' help. Dr. Rebollar also spoke
with patient and his son, patient really wants food, patient and his son understand the risks of aspiration, and patient and his son will likely transition patient to comfort care if patient deteriorates while on comfort feeds.
On 07/24/24, I spoke with patient's son Santos as well as another family member inside patient's room in the presence of the patient and hospice nurse Carin Holguin. Patient's son Santos made it clear that he wants IV fluids and antibiotics to be
continued while patient is hospitalized. Patient's son Santos stated he is agreeable to home with home hospice tomorrow (07/25/24), along with antibiotics on discharge for UTI. I explained to patient's son Santos that since patient is on a diet and is
taking food and medicine by mouth, he can aspirate and decline further in the next 24 hours, with the possibility that he may pass away even before discharge, and patient's son Santos understood this and was okay with this plan of patient still getting
food, drink and medicine by mouth, continued medical management and discharge tomorrow on home with home hospice.
Total time spent today on caring for the patient including chart review, seeing and examining the patient, speaking with the patient's son, discussing case with pulmonary, hospice nurse, palliative care physician, and documentation, was 90 minutes.
Anticipated Discharge: Within 24 hours
Subjective/Interval History
-
Date of Service: July 24, 2024
Patient was seen and examined. He was agitated/restless overnight, needing restraints, however when family arrived later, his restraints were able to be taken off. He was needing more oxygen, suspected to be from aspiration.
Objective Data
-
Labs:
Laboratory Results
07/24/24 07/24/24
01:54 07:36
WBC 11.2 H
Hgb 11.8 L
Hct 35.9 L
Plt Count 302
APTT 94.1 H 90.8 H
Sodium 148 H 148 H
Potassium 3.7 4.2
Chloride 108 H 107
Carbon Dioxide 26 27
BUN 58 H 56 H
Creatinine 0.9 0.8
Glucose 202 H 155 H
Calcium 8.8 9.1
Vital Signs:
Vital Signs
Temp Pulse Resp BP Pulse Ox
97.4 F 86 16 126/89 100
07/24/24 11:40 07/24/24 12:00 07/24/24 12:00 07/24/24 12:00 07/24/24 12:00
I&O
07/23/24 07/24/24 07/25/24
06:59 06:59 06:59
Intake Total 100 / 100 780 / 780
Output Total 1000 / 1000 550 / 550
Balance -900 / -900 230 / 230
[2024-07-24] MEDS: ROCEPHIN 1000 MG IV (14:22)
[2024-07-24] MEDS: D5W 1000 IV (14:22)
[2024-07-24] MEDS: STERILE WATER FOR INJECTION 10 ML IV (14:22)
--- NOTE | 2024-07-24 14:43 | CM ---
CM advised that pt and family interested in info regarding hospice
Referral already made to Hospice by medical team
Hospice met with family and they will consider GOC
Pt planned for SNF on dc and has been clinically accepted at [facility] and [facility]
Will need to update SNFs if plan is for hospice on dc
Discharge Disposition- SNF rehab vs SNF hospice
--- NOTE | 2024-07-24 14:43 | HOSPNOTE ---
Spoke with son and the plan is for IV hydration and IV antibiotics today and then home with hospice. The son is requesting to drive the patient home and does not want an ambulance, I suggested that an ambulance would be safer and he refused. The son
also asked for restraints at home and I told the son we will not use restraints we will use medication to control the patient's severe anxiety he did not like that answer and said he refuses to medicate since it will sedate the patient and hasten
. I discussed the goals of care and the goal is for the patient to return home with hospice and have a peaceful without anxiety or pain. The son needs a lot of education and support. The son assures me he will be staying with the patient
24 hours a day. Oxygen was ordered and will be delivered tomorrow morning. Will follow up tomorrow.
--- NOTE | 2024-07-24 16:29 | PTCARENOTE ---
Addendum entered by Shirin Garcia RN 07/24/24 16:52:
4 point restraints reapplied due to risk of injury to self. Family aware of reapplication of restraints.
Original Note:
Patient has garbled speech, dry mouth, coughing with oral intact. Patient is pulling on tubes, iv sites, attempting to climb out of bed. Boss placed due to retention. Son met with multiple providers today to discuss plan of care. Son educated about
aspiration risks with oral intake.
[2024-07-24] MEDS: LIPITOR PO (16:51)
[2024-07-24] MEDS: ProAmatine PO (16:51)
--- NOTE | 2024-07-24 17:00 | W.PN.UPDATE ---
Update Note
Progress Note Update
Pt seen and reviewed with nursing staff. Pt had some agitation overnight, pulled his IV, had legs over the bed rail. Pt was given Zyprexa 2.5 mg IM without much benefit. Pt noted to be in markedly declining overall status. Family does not want
excessively sedating agents. Pt seen, awake but poorly responsive, not able to answer questions, in bed in 4 pt soft restraints. Plan is for pt to go home on Hospice care.
Imp/Rec: TME/delirium, transitioning to Hospice care. Psychiatry will sign off
[2024-07-24 21:55] LABS: Blood Urea Nitrogen 44 mg/dl (9-20); Calcium 8.8 mg/dl (8.4-10.2); Carbon Dioxide 31 mmol/L (22-30); Chloride 104 mmol/L (98-107); Estimated Creatinine Clearance 46 ml/min; Glucose 209 mg/dl (70-99); Magnesium 2.1 mg/dl (1.6-2.3); Potassium 3.8 mmol/L (3.5-5.1); Sodium 143 mmol/L (135-145); eGFR > 60.00
[2024-07-24] MEDS: ELIQUIS PO (23:09)
[2024-07-24] MEDS: PEPCID PO (23:09)
[2024-07-24] MEDS: MAGNESIUM OXIDE PO (23:09)
--- NOTE | 2024-07-24 23:18 | PTCARENOTE ---
Addendum entered by Solomon Mazariegos RN 07/25/24 05:25:
Pt restless on/off, attempts to removed tele wires and iv occasionally. Appears to be sleeping with eyes open. respirations even and unlabored. I asked Cheo if he is ok. He nodded his head. I asked if he was in any pain. He shook his head.
Original Note:
Patient not talking, appears to be staring off into the distance. Does not answer when asked what his name is. Moving legs and arms, appears to be attempting to take off 02. Breathing with mouth open, extremely dry. Oral care done. Pt is not safe to
swallow. PO meds held at this time. Aspirations precautions. FABRICE Caro made aware. Plan is for pt to be discharged home on hospice tomorrow.
Med sitter at bedside for safety.
[2024-07-25] VITALS (7 sets, daily range): BP systolic 102–134; BP diastolic 70–118; BMI 13.7
[2024-07-25 04:24] LABS: % Immature Granulocytes 0.7 % (0-0.5); % Lymphocytes 2.9 % (20.5-51.1); % Monocytes 4.3 % (1.7-9.3); % Neutrophils 92.1 % (42.2-75.2); Absolute Immature Granulocytes 0.1 10^3/uL (0-0.05); Absolute Lymphocytes 0.2 10^3/uL (1.2-3.4); Absolute Monocytes 0.3 10^3/uL (0.1-0.6); Absolute Neutrophils 6.5 10^3/uL (1.4-6.5); Hematocrit 34.8 % (39.0-52.0); Hemoglobin 11.5 g/dL (13.0-18.0); Mean Corpuscular Hgb 31.9 pg (27.0-31.0); Mean Corpuscular Volume 96.4 fL (80.0-94.0); Mean Platelet Volume 10.6 fL (7.4-10.4); Nucleated Red Blood Cells % 0 % (-); Platelet Count 250 10^3/uL (130-400); Red Blood Cell Count 3.61 10^6/uL (4.70-6.10); Red Cell Dist. Width 14.3 % (11.5-14.5)
[2024-07-25 04:41] LABS: Blood Urea Nitrogen 36 mg/dl (9-20); Calcium 8.7 mg/dl (8.4-10.2); Carbon Dioxide 30 mmol/L (22-30); Chloride 104 mmol/L (98-107); Estimated Creatinine Clearance 46 ml/min; Glucose 202 mg/dl (70-99); Magnesium 2.1 mg/dl (1.6-2.3); Potassium 3.6 mmol/L (3.5-5.1); Sodium 143 mmol/L (135-145); eGFR > 60.00
[2024-07-25] MEDS: DECADRON 4 MG IV ×2 (04:56→12:36)
[2024-07-25] MEDS: D5W 1000 IV (04:57)
--- NOTE | 2024-07-25 09:06 | PTOTSP ---
Reviewed chart and noted plans for pt to dc to home on hospice today. Skilled PT not indicated and will sign off.
--- NOTE | 2024-07-25 09:39 | HOSPNOTE ---
Spoke with the son this am and told him the oxygen would be delivered at 10:30 and he is unsure if he will be able to meet the package delivery room service runner at that time. I encouraged him to leave his home now in [place] and drive to [place] to accept the
delivery and that this was arranged yesterday and he knew that the delivery would be in the am in order to get his Dad home safely. The son is still insisting on driving him home and will bring an oxygen tank for transport.
[2024-07-25] MEDS: ProAmatine 10 MG PO (09:56)
[2024-07-25] MEDS: LOW STRENGTH ASPIRIN 81 MG PO (09:57)
[2024-07-25] MEDS: CARDIZEM CD 120 MG PO (09:57)
[2024-07-25] MEDS: FLORINEF 0.1 MG PO ×2 (09:57→12:36)
[2024-07-25] MEDS: ELIQUIS 2.5 MG PO (09:57)
[2024-07-25] MEDS: THIAMINE INJECTION 200 MG IV (09:57)
[2024-07-25] MEDS: ZYLOPRIM 100 MG PO (09:57)
[2024-07-25] MEDS: MAGNESIUM OXIDE 250 MG PO (09:57)
[2024-07-25] MEDS: SENOKOT-S 1 TABLET PO (10:00)
[2024-07-25] MEDS: TYLENOL 650 MG PO (10:01)
--- NOTE | 2024-07-25 12:21 | CM ---
Patient with Dx Acute hypoxemic respiratory failure, Acute metabolic encephalopathy, delirium, new Afib w RVR, UTI, right hip Fx after fall at home. Intermittent confusion, restlessness. Seen by Psych. Dysphagia diet. Given Tylenol prn today.
Medsitter. PT/OT; assist of 2, recommend skilled rehab.
Met with Carin, Hospice; the family had decided on home with Hospice today. Home O2 ordered. Family has declined ambulance and son is adamant that patient be transported home by car.
Case discussed with Dr Field, Hospice nurse Carin, nurse Francesca; discussed concern family wishes to take patient home via car today. MD agrees to allow transport home by car - son may be able to lift patient into his vehicle as wt is 95lbs.
Met with patient, son Santos and daughter in law Francesca; patient alert, restless and seems to understand he is going home today. Son/DIL agree to d/c home today with Hospice. IMM completed. Son and DIL at bedside and seem attentive. Discussed
possible need for patient to have a caregiver- provided info on hiring a caregiver. Son agrees to receive Caregiver list, however states he thinks his father will not last more than a few days so it will not be needed. Portable O2 tank in room.
Son plans on taking patient home today by car.
Plan home today with Hospice with home O2, by car with son.
--- NOTE | 2024-07-25 12:34 | W.PN.HOSP.TC ---
Today's Communication/Plan
-
Discharge today
Assessment / Plan
Assessment / Plan
Physical Exam
General: No Apparent Distress, Comfortable and Cachectic
HEENT: Normocephalic, Atraumatic, Moist Mucous Membranes and Oxygen (12 L midflow nasal cannula later went back down to 6 L midflow nasal cannula---> now to 3 L midflow nasal cannula)
Respiratory: Crackles (Bibasilar)
Cardiac: S1/S2 and Irregular Rhythm
GI: Soft, Nontender, Nondistended and Normal Bowel Sounds
Musculoskeletal: No Cyanosis and No Edema
Skin: Warm, Dry and Normal Turgor
Neuro: Awake, Alert, Oriented and Nonfocal/Grossly Intact
Psych: Calm

Echocardiogram (as per creative manager's report from 07/23/24)
CONCLUSIONS
Normal biventricular size and systolic function without regional wall motion
abnormality. Estimated LVEF 50-55%.
No significant valve disease.
No prior study available for comparison.

Assessment/Plan
#Acute hypoxemic respiratory failure, at least partly explained by aspiration, CHF/COPD/interstitial lung disease
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
#Leukocytosis
-Also has been altered fairly consistently while here, question if he is aspirating as well
-X-rays here show severe emphysema, signs of ILD versus IPF; minimal known history concerning these
-Initially was on room air though has required up titration to nonrebreather later during hospitalization, and now on midflow nasal cannula
-Chest x-ray suggested interstitial inflammation and pulmonary edema
-Currently on IV Lasix and started on IV steroid; also on antibiotics for UTI
-Pulmonology following
Plan
-C/w IV Lasix 40 mg PRN per volume status
-C/W IV decadron 4mg Q8 -- will discharge on prednisone taper: prednisone 50 mg x 2 days, 40 mg x 2 days, 30 mg x 2 days, 20 mg x 2 days, 10 mg x 2 days then off.
-C/W home breathing treatments
-Continue oxygen on discharge
-F/U CT thorax and TTE
-Trend CBC and temperature curve
#Acute metabolic encephalopathy
-Suspect this is multifactorial with delirium, opiate effect, component of UTI
-Per his son he is AOx3 at baseline, has been lucid at times today though volatile
#Severe Oropharyngeal Dysphagia
-Consulted palliative care physician Dr. Bonnie Gallo -- and code status was changed to DNR/DNI
-Patient's son would like to continue usual medical management while inpatient, but is onboard with home with home hospice on discharge
-Will discharge to home with home hospice today
-Per ann Marquez as of 07/23/24, VSE completed: aspiration of all including significant amount of barium pudding. NPO and GOC discussion were recommended. When speech therapist discussed with patient the
results, patient said 'I know. I choke all the time. Can I have a doughnut and coffee?'
-Discussed case on 07/23/24 with pulmonary: Dr. Rebollar met with the patient and his son, patient wanted a bowl of cream of wheat from home, son was told he could make it and bring it from home, patient and son
understand the risks of PO intake at this time
-Therefore, changed patient's diet to Pureed. Patient and his family elected for patient continue comfort feeds despite the risk of aspiration, goal is home with home hospice.
-Consulted GI -- no PEG tube or Dobhoff tube at this time since with patient's delirium and agitation, he will pull it out
-Spoke with clinical pharmacist Heather Fofana (in case patient is strict NPO): recommended (in the case that patient was to be strict NPO) to hold allopurinol, mag oxide, midodrine, and recommended switching to: heparin drip Cardiac protocol, IV
famotidine, consider changing fludrocortisone to hydrocortisone IV 50 mg daily as confirmed with on-call manager intensive care unit. I spoke with on-call manager intensive care unit who recommended starting IV Hydrocortisone 50 mg daily in lieu of patient's outpatient
Fludrocortisone medication, okay to keep intravenous Dexamethasone as is for now -- nurse will try giving him his Allopurinol, Lipitor, Pepcid, Magnesium Oxide, Midodrine if he can tolerate those medications -- currently doing oral medications as
patient
and family have elected for comfort feeding
-Aspiration precautions
#Agitation
-Per nurse on 07/23/24, patient pulling out tubes, yelling
-QTc 482 on July 23, 2024
-Consulted psychiatry, appreciate their evaluation and recommendations: while inpatient, could try intravenous PRN Ativan; Melatonin could help with sleep and overall mental status when able to be given; Zyprexa 2.5 mg IM could be used for
severe agitation/aggressive behavior
-Once patient is on home with home hospice, can get medications at home for agitation/sleep etc.
#Hypernatremia - RESOLVED
-D5W @ 75 cc/hr while inpatient
-Hold patient's home salt tablets
-Appreciate nephrology
-Monitor potassium -- potassium is okay
#New-Onset Atrial Fibrillation with Rapid Ventricular Response
-Nonvalvular; [id number]; likely provoked from stress of fall, possible prerenal state
-Re-consulted cardiology on 07/23/24 -- patient was temporarily on IV Heparin and IV Cardizem due to strict NPO, but now switched back to Eliquis and PO Cardizem, appreciate cardiology
#UTI
-Urinalysis from the ED with pyuria, many bacteria, positive leukocyte esterase
-Urine culture returned positive for E. coli with resistance to ciprofloxacin and tetracyclines
-Transition from ceftriaxone to cefdinir to complete 7-day course (was getting Cefdinir 300 mg BID since 07/19/24 morning), transitioned back to Ceftriaxone on 07/23/24 due to failing speech/swallow evaluation
-Continue antibiotics -- will discharge with PO antibiotics: Cefpodoxime 200 mg Q12H for 1 more day
#Mechanical fall at home
#Mildly displaced right acetabular fracture
-Had a fall at home onto his right hip, imaging without signs of fracture
-CT showed mildly displaced acetabular fracture, nondisplaced pubic ramus fracture
-Continue pain control as needed
-PT/OT consult pending
#ASCVD
#Left subclavian steal
#Bilateral carotid stenosis
#Dyslipidemia
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
-Home medications include DAPT with aspirin and Plavix (but now on Heparin Drip), high intensity statin
-No signs or symptoms of new atherosclerotic occlusions
-Discussed with vascular surgery (via [facility] on 07/23/24) to see whether patient should be on at least one antiplatelet medication: okay to resume Aspirin only (not Plavix) along with systemic anticoagulation
#Type 2 Diabetes Mellitus
-No recent A1c on record, not currently on home medications, no history of microvascular disease
-Continue ISS with Accu-Cheks, blood glucose goal 150�200
#Stage IIIa CKD
-Baseline renal function with creatinine near 1.0, creatinine clearance mid 40s
#Orthostatic hypotension
-Seems to have severe disease
-Home medications include midodrine, fludrocortisone, NaCl tabs twice daily -- holding NaCl given hypernatremia at this time
-Continue monitoring for orthostatic symptoms while here
#Hypothyroidism
-Unclear etiology, does not seem to be on any levothyroxine replacement at home
-Per previous documentation
#Gout
-Home meds include allopurinol 100 mg daily
-No signs of acute flare at this time
DVT prophylaxis: Heparin drip
Diet: Okay for comfort pureed diet after pulmonary spoke to patient on 07/23/24.
CODE STATUS: DNR and also DO NOT INTUBATE (DR. BONNIE GALLO OF PALLIATIVE CARE TEAM CONFIRMED THIS WITH PATIENT'S SON -- patient delirious/confused). Appreciate Dr. Gallo's help.
On 07/23/24, I spoke with both patient and his son Santos inside patient's room, they mentioned they would like everything done including breathing machine/intubation if needed and Full Code. However, Dr. Bonnie Gallo of palliative care spoke with
patient and his son and they mentioned that patient is to be DNR starting now, and no intubation or mechanical ventilation. Code Status changed to DNR and no intubation/no mechanical ventilation. Appreciate Dr. Gallo' help. Dr. Rebollar also spoke
with patient and his son, patient really wants food, patient and his son understand the risks of aspiration, and patient and his son will likely transition patient to comfort care if patient deteriorates while on comfort feeds.
On 07/24/24, I spoke with patient's son Santos as well as another family member inside patient's room in the presence of the patient and hospice nurse Carin Holguin. Patient's son Santos made it clear that he wants IV fluids and antibiotics to be
continued while patient is hospitalized. Patient's son Santos stated he is agreeable to home with home hospice tomorrow (07/25/24), along with antibiotics on discharge for UTI. I explained to patient's son Santos that since patient is on a diet and is
taking food and medicine by mouth, he can aspirate and decline further in the next 24 hours, with the possibility that he may pass away even before discharge, and patient's son Santos understood this and was okay with this plan of patient still getting
food, drink and medicine by mouth, continued medical management and discharge tomorrow on home with home hospice.
On 07/25/24, it was noted that patient's son understood the risks (including patient dying en route to home) of taking patient home in a car, despite these risks patient's son is insistent and would like to take patient home in a car.
More than 30 minutes spent in discharge including
Final examination of the patient
Summarizing hospital stay
Instructions for continuing care to all relevant caregivers
Preparation of discharge records, prescriptions, and referral forms
Total time spent (in minutes): 40
Anticipated Discharge: Today
Subjective/Interval History
-
Date of Service: July 25, 2024
Patient was seen and examined. He was sleeping when he was seen.
Objective Data
-
Labs:
Laboratory Results
07/25/24 07/25/24
02:00 04:03
WBC 7.0
Hgb 11.5 L
Hct 34.8 L
Plt Count 250
Sodium Cancelled 143
Potassium Cancelled 3.6
Chloride Cancelled 104
Carbon Dioxide Cancelled 30
BUN Cancelled 36 H
Creatinine Cancelled 0.7
Glucose Cancelled 202 H
Calcium Cancelled 8.7
Vital Signs:
Vital Signs
Temp Pulse Resp BP Pulse Ox
97.1 F 115 23 126/78 92
07/25/24 11:45 07/25/24 10:30 07/25/24 10:30 07/25/24 10:30 07/25/24 10:00
I&O
07/24/24 07/25/24 07/26/24
06:59 06:59 06:59
Intake Total 780 / 780 1135 / 1135
Output Total 550 / 550 575 / 575 300 / 300
Balance 230 / 230 560 / 560 -300 / -300
[2024-07-25] MEDS: ProAmatine PO (12:36)
== END 2024-07-25 14:31 | disposition hospice, home (50) | DRG 70 ==
LOC: IMU 17:47
PROVIDERS: Nurse Practitioner; Nurse Practitioner Gerontology; Physician Assistant; ADMITTING PHYSICIAN Internal Medicine; ATTENDING PHYSICIAN Hospitalist; CONSULT PHYSICIAN Internal Medicine; CONSULT PHYSICIAN Internal Medicine Cardiovascular Disease; CONSULT PHYSICIAN Internal Medicine Critical Care Medicine; CONSULT PHYSICIAN Internal Medicine Hospice and Palliative Medicine; CONSULT PHYSICIAN Orthopaedic Surgery Hand Surgery; EMERGENCY PHYSICIAN Student in an Organized Health Care Education/Training Program; FAMILY PHYSICIAN Family Medicine; OTHER PHYSICIAN Psychiatry & Neurology Psychiatry
PROC: 5A19054 Respiratory Ventilation, Single, Nonmechanical (ICD-10-PCS; 2024-07-20)
DX: G93.41 Metabolic encephalopathy (principal); E43 Unspecified severe protein-calorie malnutrition; J96.01 Acute respiratory failure with hypoxia; S32.431A Displaced fracture of anterior column [iliopubic] of right acetabulum, initial encounter for closed fracture; E87.0 Hyperosmolality and hypernatremia; Z68.1 Body mass index [BMI] 19.9 or less, adult; G45.8 Other transient cerebral ischemic attacks and related syndromes; N39.0 Urinary tract infection, site not specified; Z51.5 Encounter for palliative care; Z66 Do not resuscitate; R64 Cachexia; S32.591A Other specified fracture of right pubis, initial encounter for closed fracture; G45.0 Vertebro-basilar artery syndrome; Z16.24 Resistance to multiple antibiotics; I50.30 Unspecified diastolic (congestive) heart failure; D63.1 Anemia in chronic kidney disease; E03.9 Hypothyroidism, unspecified; E11.22 Type 2 diabetes mellitus with diabetic chronic kidney disease; E11.65 Type 2 diabetes mellitus with hyperglycemia; I70.8 Atherosclerosis of other arteries; J43.2 Centrilobular emphysema; N18.31 Chronic kidney disease, stage 3a; R13.12 Dysphagia, oropharyngeal phase; J84.10 Pulmonary fibrosis, unspecified; B96.20 Unspecified Escherichia coli [E. coli] as the cause of diseases classified elsewhere; W19.XXXA Unspecified fall, initial encounter; Y92.009 Unspecified place in unspecified non-institutional (private) residence as the place of occurrence of the external cause; E78.00 Pure hypercholesterolemia, unspecified; G50.0 Trigeminal neuralgia; I25.10 Atherosclerotic heart disease of native coronary artery without angina pectoris; I48.91 Unspecified atrial fibrillation; I95.1 Orthostatic hypotension; M10.9 Gout, unspecified; G89.29 Other chronic pain; R03.0 Elevated blood-pressure reading, without diagnosis of hypertension; Z79.02 Long term (current) use of antithrombotics/antiplatelets; Z79.82 Long term (current) use of aspirin; Z79.899 Other long term (current) drug therapy; Z86.73 Personal history of transient ischemic attack (TIA), and cerebral infarction without residual deficits; Z87.891 Personal history of nicotine dependence; Z88.0 Allergy status to penicillin
CPT/HCPCS: 36600; 70450; 71045; 71250; 73502; 73552; 73700; 74230; 80048; 80053; 81003; 81015; 82040; 82805; 82962; 83735; 83880; 85025; 85652; 85730; 87077; 87086; 87186; 87502; 87807; 87811; 92610; 92611; 93005; 93306; 94640; 96361; 96374; 96375; 97163; 97167; 97530; 97535; 99285; J2358

== ENCOUNTER → 2024-08-20 11:00 | Outpatient (REF) | payer MEDICARE, BC, SELFPAY ==
[2024-08-20 12:37] LABS: Hemoglobin 9.4 g/dL (13.0-18.0); Mean Corp Hgb Conc. 31.3 g/dL (33.0-37.0); Mean Corpuscular Hgb 32.1 pg (27.0-31.0); Mean Corpuscular Volume 102.4 fL (80.0-94.0); Mean Platelet Volume 10.3 fL (7.4-10.4); Platelet Count 303 10^3/uL (130-400); Red Blood Cell Count 2.93 10^6/uL (4.70-6.10); Red Cell Dist. Width 15.5 % (11.5-14.5); White Blood Cell Count 6.8 10^3/uL (4.8-10.8)
[2024-08-20 12:54] LABS: ALT (SGPT) 17 U/L (0-50); AST (SGOT) 20 U/L (17-59); Albumin 2.6 g/dl (3.5-5.0); Alkaline Phosphatase 147 U/L (38-126); Blood Urea Nitrogen 26 mg/dl (9-20); Calcium 7.9 mg/dl (8.4-10.2); Carbon Dioxide 35 mmol/L (22-30); Chloride 96 mmol/L (98-107); Glucose 177 mg/dl (70-99); Potassium 3.5 mmol/L (3.5-5.1); Sodium 140 mmol/L (135-145); Total Bilirubin 0.7 mg/dl (0.2-1.3); Total Protein 5.1 g/dl (6.3-8.2); eGFR > 60.00
[2024-08-20 13:21] LABS: Urine Albumin 2+ (Neg - Trace); Urine Bilirubin 1+ (Negative); Urine Character Slightly Cloudy (Clear); Urine Color Yellow; Urine Glucose Negative (Negative); Urine Ketone 1+ (Negative); Urine Leukocyte 2+ (Negative); Urine Nitrite Positive (Negative); Urine Occult Blood 2+ (Negative); Urine Specific Gravity 1.025 (<1.030); Urine Urobilinogen 2+ (Neg - 1+)
[2024-08-20 14:54] LABS: Urine Bacteria Many (Negative); Urine Red Blood Cell 26-30 /HPF (0-2); Urine White Cell 40-50 /HPF (0-5)
== END ==
LOC: OLAB 11:00
PROVIDERS: ATTENDING PHYSICIAN Internal Medicine Hospice and Palliative Medicine; FAMILY PHYSICIAN Family Medicine
DX: J96.11 Chronic respiratory failure with hypoxia (principal); N39.0 Urinary tract infection, site not specified; K92.2 Gastrointestinal hemorrhage, unspecified
CPT/HCPCS: 36415; 80053; 81003; 81015; 85027; 87077; 87086; 87186

== ENCOUNTER → 2024-08-27 12:03 | Outpatient (REF) | payer MEDICARE, BC, SELFPAY ==
[2024-08-27 12:52] LABS: Hematocrit 30.6 % (39.0-52.0); Hemoglobin 9.6 g/dL (13.0-18.0); Mean Corp Hgb Conc. 31.4 g/dL (33.0-37.0); Mean Corpuscular Hgb 31.6 pg (27.0-31.0); Mean Corpuscular Volume 100.7 fL (80.0-94.0); Mean Platelet Volume 10.7 fL (7.4-10.4); Platelet Count 311 10^3/uL (130-400); Red Blood Cell Count 3.04 10^6/uL (4.70-6.10); Red Cell Dist. Width 15.4 % (11.5-14.5); White Blood Cell Count 6.3 10^3/uL (4.8-10.8)
[2024-08-27 13:04] LABS: Blood Urea Nitrogen 20 mg/dl (9-20); Calcium 7.5 mg/dl (8.4-10.2); Carbon Dioxide 33 mmol/L (22-30); Chloride 98 mmol/L (98-107); Glucose 156 mg/dl (70-99); Potassium 3.3 mmol/L (3.5-5.1); Sodium 138 mmol/L (135-145); eGFR > 60.00
== END ==
LOC: CLAB 12:03
PROVIDERS: ATTENDING PHYSICIAN Family Medicine
DX: N39.0 Urinary tract infection, site not specified (principal); K92.2 Gastrointestinal hemorrhage, unspecified; E87.1 Hypo-osmolality and hyponatremia
CPT/HCPCS: 36415; 80048; 85027